=== PATIENT | male | born 1950 | race Caucasian/White ===

== ENCOUNTER → 2016-11-12 | Outpatient (CLI) | payer OTHER ==
--- NOTE | 2016-11-12 08:02 | US ---
EXAMINATION TYPE: US duplex aorta DATE OF EXAM: 11/12/2016 COMPARISON: NONE CLINICAL HISTORY: Z13.6 AAA. EXAM MEASUREMENTS: Abdominal Aorta: Proximal: 2.3cm Mid: 1.6cm Distal: 1.6cm Bifurcation: Right 0.8cm left 1.0cm No AAA. Extensive overlying bowel gas. IMPRESSION: NO EVIDENCE OF AN AORTIC ANEURYSM AT THIS TIME.
== END | disposition home or self-care (01) ==
LOC: RADUSWWP 07:09
PROVIDERS: ATTEND Family Medicine
DX: Z13.6 Encounter for screening for cardiovascular disorders (principal)
CPT/HCPCS: 93979

== ENCOUNTER → 2016-11-24 | Outpatient (CLI) | payer OTHER ==
--- NOTE | 2016-11-24 14:45 | MM ---
Reason for exam: clinical finding. Physical Findings: Nurse Summary: A 0.5cm nodule in the right breast at 11 o'clock (nurse kp). MG Diagnostic Mammo w CAD OPAL Bilateral CC and MLO view(s) were taken. The breast tissue is almost entirely fat. Asymmetric breast tissue, greater in the right breast. There is no discrete abnormality. Suspect gynecomastia. These results were verbally communicated with the patient and result sheet given to the patient on 11/24/16. ASSESSMENT: Benign, BI-RAD 2 RECOMMENDATION: Clinical management of both breasts. Manage patient on a clinical basis.
--- NOTE | 2016-11-24 14:50 | USB ---
Reason for exam: clinical finding. US Breast Limited RT Right breast ultrasound demonstrates no cystic or solid lesion seen. Left posterior nipple for comparison. These results were verbally communicated with the patient and result sheet given to the patient on 11/24/16. ASSESSMENT: Negative, BI-RAD 1 RECOMMENDATION: Clinical management of both breasts. Manage patient on a clinical basis, bilateral gynecomastia greater in the right breast.
== END | disposition home or self-care (01) ==
LOC: RADMAMWWP 10:07
PROVIDERS: ATTEND Family Medicine
DX: N63 Unspecified lump in breast (principal); R92.8 Other abnormal and inconclusive findings on diagnostic imaging of breast
CPT/HCPCS: 76642; G0204

== ENCOUNTER → 2019-04-20 | Outpatient (CLI) | payer OTHER ==
--- NOTE | 2019-04-20 09:44 | CTL ---
EXAMINATION TYPE: CT Low Dose Lung DATE OF EXAM ORDERED: 04/20/2019 HISTORY: 68-year-old male personal history of tobacco use. Lung cancer screening CT DLP: 58.[address] CTDI: 1.7 mGy Automated exposure control for dose reduction was used. SCREENING VISIT: Baseline COMPARISON: None TECHNIQUE: Low dose computed tomography scan was performed through the chest at 1 mm thick sections a nd reconstructed images in the coronal and sagittal plane. Additional coronal MIP reconstruction perf ormed. CT DIAGNOSTIC QUALITY: Satisfactory FINDINGS: Heart normal size without pericardial effusion. Scattered coronary vessel calcifications are present. Aorta normal caliber with mild atherosclerotic arch calcifications and conventional arch vessel branc bandar anatomy. No thoracic lymphadenopathy by CT size criteria. Trace bilateral gynecomastia. Mild biapical pleural-parenchymal scarring. Mild centrilobular emphysema. Some scattered subpleural r eticulation suggests some underlying fibrosis as well. Mild diffuse bronchial wall thickening. Some strandy mucus/debris within the distal left mainstem bronchus. Tiny 3 mm pulmonary nodule peripheral left midlung, axial image 83. No suspicious pulmonary nodule or mass. Tiny hiatal hernia. Visualized upper abdomen otherwise shows no gross abnormality. Bones: Degenerative changes of the right shoulder with an anterior 8 mm loose body. Degenerative disc disease and endplate spondylosis throughout the thoracic spine. IMPRESSION: 1. LungRADS 2 - Benign. Solitary 3 mm left upper lobe pulmonary nodule on baseline. 2. COPD with mild emphysema. 3. Tiny hiatal hernia. RECOMMENDATION: 1. Continue annual low-dose lung cancer screening CT. 2. Smoking cessation. FOLLOW UP CT CHEST RECOMMENDATION: [address] LUNG RAD: Lung-Rad 2 Benign Appearance or Behavior
== END | disposition home or self-care (01) ==
LOC: RADCTMAIN 08:12
DX: Z12.2 Encounter for screening for malignant neoplasm of respiratory organs (principal); R91.1 Solitary pulmonary nodule; J43.9 Emphysema, unspecified; F17.210 Nicotine dependence, cigarettes, uncomplicated

== ENCOUNTER → 2020-05-07 | Outpatient (CLI) | payer OTHER ==
--- NOTE | 2020-05-07 09:14 | US ---
EXAMINATION TYPE: US liver DATE OF EXAM: 05/07/2020 COMPARISON: NONE CLINICAL HISTORY: K76.9 Liver disease unspecified. Abnormal labs EXAM MEASUREMENTS: Liver Length: 11.2 cm Gallbladder Wall: 0.2 cm CBD: 0.4 cm Right Kidney: 8.7 x 4.8 x 4.2 cm Pancreas: wnl, tail obscured by overlying bowel gas Liver: Cyst adjacent to GB medial right lobe= 0.9 x 0.8 x 1.0 cm, otherwise appeared wnl Gallbladder: wnl Evidence for sonographic Atkins's sign: No CBD: wnl Right Kidney: Cortical thinning, small in size IMPRESSION: 1. Simple hepatic cyst. 2. Right-sided renal cortical thinning.
== END | disposition home or self-care (01) ==
LOC: RADUSWWP 08:49
DX: K76.89 Other specified diseases of liver (principal); N28.89 Other specified disorders of kidney and ureter
CPT/HCPCS: 76705

== ENCOUNTER → 2020-06-19 | Outpatient (CLI) | payer OTHER ==
--- NOTE | 2020-06-19 16:40 | US ---
EXAMINATION TYPE: US kidneys/renal and bladder DATE OF EXAM: 06/19/2020 COMPARISON: Recent liver US CLINICAL HISTORY: R93.421 abnormal radiologic findings on diagnostic. Abnormal appearing right kidney on previous US EXAM MEASUREMENTS: Right Kidney: 8.8 x 4.9 x 5.0 cm Left Kidney: 9.5 x 5.4 x 4.5 cm Right Kidney: Cortical thinning, small in size as visualized on previous Left Kidney: No evidence of hydro, appeared wnl Bladder: Abnormal posterior wall, ?bladder diverticula. This is not well visualized by imaging. Bilateral Jets seen: No IMPRESSION: 1. Normal bilateral renal ultrasound. 2. Real-time technologist observation suggest a possible bladder diverticula an abnormal urinary blad fercho wall. Real-time observation by radiologist or repeat study with attention to the urinary bladder could be performed.
== END | disposition home or self-care (01) ==
LOC: RADUSWWP 16:05
DX: R93.421 Abnormal radiologic findings on diagnostic imaging of right kidney (principal)
CPT/HCPCS: 76770

== ENCOUNTER → 2020-10-10 | Outpatient (CLI) | payer OTHER ==
--- NOTE | 2020-10-10 12:53 | CTL ---
EXAMINATION TYPE: CT Low Dose Lung DATE OF EXAM ORDERED: 10/10/2020 COMPARISON: HISTORY: . Low Dose CT Lung Screening CT DLP: 85.[address] CTDI: 2.4 mGy IV CONTRAST USED: None. SCREENING VISIT: First visit COMPARISON: None. TECHNIQUE: Low dose computed tomography scan was performed through the chest at 1 millimeter thick se ctions and reconstructed images in the coronal plane at [address] DIAGNOSTIC QUALITY: Satisfactory FINDINGS: LUNG NODULES: Tiny 2 mm pulmonary nodule right upper lobe posteriorly. Stable 3 mm pulmonary nodule l eft upper lobe image 81 LUNGS: COPD: Severity: Moderate Fibrosis: Severity:None Lymph nodes: None Other findings: None RIGHT PLEURAL SPACE: Effusion: None Calcification: None Thickening: None Pneumothorax: None LEFT PLEURAL SPACE: Effusion: None Calcification: None Thickening: None Pneumothorax: None HEART: Heart Size: Mildly enlarged Coronary calcification: Mild Pericardial effusion: None OTHER FINDINGS: Upper abdomen: No significant abnormality Bony thorax: Degenerative changes Supraclavicular region: No significant abnormalityOther: No significant abnormalityI IMPRESSION: Benign FOLLOW UP CT CHEST RECOMMENDATION: Follow-up screening in one year. Smoking cessation advised. CT LUNG RAD: LUNG RAD CATEGORY category 2
== END | disposition home or self-care (01) ==
LOC: RADCTMAIN 12:20
DX: Z12.2 Encounter for screening for malignant neoplasm of respiratory organs (principal)
CPT/HCPCS: 71271

== ENCOUNTER 2021-01-18 15:34 | Inpatient (IN) | payer OTHER ==
[2021-01-18] MEDS ORDERED: MORPHINE SULFATE 4 MG/ML SYRINGE IVP PRN (15:49)
--- NOTE | 2021-01-18 15:51 | ED ---
General Adult HPI - General Chief complaint: Fall Stated complaint: weakness Time Seen by Provider: 01/18/21 15:36 Source: EMS Mode of arrival: EMS Limitations: physical limitation - History of Present Illness Initial comments: Dictation was produced using [employer] dictation software. please excuse any grammatical, word or spelling errors. Chief Complaint: 70-year-old male presents to the emergency Department with back and left hip pain History of Present Illness: And is a 70-year-old male has history of left hip prosthesis. Surgery was done 10 years ago. Patient fell down yesterday. He states he turned quickly and loss control and his left leg. He states his left hip is given on the past. States he fell down. Today he was having difficulty walking. EMS was called by patient's is brought to the ER. Patient states that he did not experience any palpitations or pain prior to the fall. Did not strike his head or hurt his neck. Patient has no complaints other than his lower back and left hip. Patient states his back pain goes across his left lower back. Denies any numbness and paresthesias to the extremities. The ROS documented in this emergency department record has been reviewed and confirmed by me. Those systems with pertinent positive or negative responses have been documented in the HPI. All other systems are other negative and/or noncontributory. PHYSICAL EXAM: General Impression: Alert and oriented x3, not in acute distress HEENT: Normocephalic atraumatic, extra-ocular movements intact, pupils equal and reactive to light bilaterally, mucous membranes moist. Cardiovascular: Heart regular rate and rhythm Chest: Able to complete full sentences, no retractions, no tachypnea Abdomen: abdomen soft, non-tender, non-distended, no organomegaly Musculoskeletal: Pulses present and equal in all extremities, no peripheral edema Left lower extremity shortened compared to the right, mild tenderness to palpation over the left greater trochanter Motor: no focal deficits noted Neurological: CN II-XII grossly intact, no focal motor or sensory deficits noted Skin: Intact with no visualized rashes Psych: Normal affect and mood ED course: 70-year-old male presents to the emergency department with lower back pain and left hip pain after fall yesterday. Vital Signs upon arrival are within acceptable limits. Laboratory evaluation obtained. CBC, coag panel, metabolic panel is unremarkable. Computed tomography scan of the brain shows no acute processes. CT of the lumbar spine shows no acute fractures. Patient is reevaluated bedside continue have significant pain EKG interpretation: Ventricular rate 106, sinus tachycardia, ME interval 136, QRS 82, QTc 459. No ME prolongation, no QTC prolongation, no ST or T-wave changes noted. No EKG for comparison Overall, this EKG is unremarkable Computed tomography scan of the hip and left lower extremity shows hairline intra-articular fracture of the left acetabulum. Case is discussed with Nupur for orthopedic surgery. She discussed the case with Dr. Lyons. They are agreeable that patient is able to stay in the hospital per patient be admitted to Dr. Ortiz of [facility] with orthopedic surgery on consult. - Related Data Home Medications Medication Instructions Recorded Confirmed Folic Acid 1 mg PO DAILY 01/18/21 01/18/21 Pyridoxine HCl (Vitamin B6) 25 mg PO DAILY 01/18/21 01/18/21 [Pyridoxine HCl] Thiamine HCl [Vitamin B-1] 100 mg PO DAILY 01/18/21 01/18/21 Allergies Allergy/AdvReac Type Severity Reaction Status Date / Time No Known Allergies Allergy Verified 01/18/21 16:25 Review of Systems ROS Statement: Those systems with pertinent positive or pertinent negative responses have been documented in the HPI. ROS Other: All systems not noted in ROS Statement are negative. Past Medical History Past Medical History: No Reported History History of Any Multi-Drug Resistant Organisms: None Reported Past Surgical History: Orthopedic Surgery Additional Past Surgical History / Comment(s): Left hip surgery, left testicle. Past Psychological History: No Psychological Hx Reported Smoking Status: Current every day smoker Past Alcohol Use History: Daily Past Drug Use History: None Reported General Exam Limitations: physical limitation Course Vital Signs 01/18/21 01/18/21 15:37 16:54 Temperature 97.8 F Pulse Rate 109 H 85 Respiratory 18 18 Rate Blood Pressure 166/85 166/85 O2 Sat by Pulse 93 L 94 L Oximetry Medical Decision Making - Lab Data Result diagrams: 01/18/21 15:52 01/18/21 15:52 Lab Results 01/18/21 01/18/21 01/18/21 Range/Units 15:52 15:52 15:52 WBC 8.2 (3.8-10.6) k/uL RBC 4.18 L (4.30-5.90) m/uL Hgb 13.7 (13.0-17.5) gm/dL Hct 41.2 (39.0-53.0) % MCV 98.7 (80.0-100.0) fL MCH 32.7 (25.0-35.0) pg MCHC 33.1 (31.0-37.0) g/dL RDW 13.3 (11.5-15.5) % Plt Count 136 L (150-450) k/uL MPV 10.1 Neutrophils % 80 % Lymphocytes % 9 % Monocytes % 7 % Eosinophils % 3 % Basophils % 1 % Neutrophils # 6.5 (1.3-7.7) k/uL Lymphocytes # 0.7 L (1.0-4.8) k/uL Monocytes # 0.6 (0-1.0) k/uL Eosinophils # 0.2 (0-0.7) k/uL Basophils # 0.0 (0-0.2) k/uL PT 10.4 (9.0-12.0) sec INR 1.0 (<1.2) APTT 23.7 (22.0-30.0) sec Sodium 135 L (137-145) mmol/L Potassium 4.5 (3.5-5.1) mmol/L Chloride 105 (98-107) mmol/L Carbon Dioxide 21 L (22-30) mmol/L Anion Gap 9 mmol/L BUN 16 (9-20) mg/dL Creatinine 0.76 (0.66-1.25) mg/dL Est GFR (CKD-EPI)AfAm >90 (>60 ml/min/1.73 sqM) Est GFR (CKD-EPI)NonAf >90 (>60 ml/min/1.73 sqM) Glucose 111 H (74-99) mg/dL Calcium 9.0 (8.4-10.2) mg/dL Magnesium 2.1 (1.6-2.3) mg/dL Disposition Clinical Impression: Fall Disposition: ADMITTED IP TO THIS HOSP Condition: Fair Referrals: [facility],Clinic [Primary Care Provider] - 1-2 days
[2021-01-18 16:03] LABS: Basophils % (A) 1 %; Eosinophils # (A) 0.2 k/uL (0-0.7); Eosinophils % (A) 3 %; HCT 41.2 % (39.0-53.0); HGB 13.7 gm/dL (13.0-17.5); Lymphocytes # (A) 0.7 k/uL (1.0-4.8); Lymphocytes % (A) 9 %; MCH 32.7 pg (25.0-35.0); MCHC 33.1 g/dL (31.0-37.0); MCV 98.7 fL (80.0-100.0); Mean Platelet Volume 10.1; Monocytes # (A) 0.6 k/uL (0-1.0); Monocytes % (A) 7 %; Neutrophils # (A) 6.5 k/uL (1.3-7.7); Neutrophils % (A) 80 %; Platelet Count 136 k/uL (150-450); RBC 4.18 m/uL (4.30-5.90); RDW 13.3 % (11.5-15.5); WBC 8.2 k/uL (3.8-10.6)
[2021-01-18] MEDS ORDERED: SODIUM CHLORIDE 0.9% 1,000 ML IV STA (16:03)
[2021-01-18 16:12] LABS: African American GFR (CKD) >90 (>60 ml/min/1.73 sqM); Anion Gap 9 mmol/L; Blood Urea Nitrogen 16 mg/dL (9-20); Carbon Dioxide 21 mmol/L (22-30); Chloride 105 mmol/L (98-107); Glucose 111 mg/dL (74-99); Magnesium 2.1 mg/dL (1.6-2.3); Non-African American GFR(CKD) >90 (>60 ml/min/1.73 sqM); Sodium 135 mmol/L (137-145)
[2021-01-18 16:19] LABS: Potassium 4.5 mmol/L (3.5-5.1)
--- NOTE | 2021-01-18 16:20 | CT ---
EXAMINATION TYPE: CT brain wo con DATE OF EXAM: 01/18/2021 COMPARISON: None HISTORY: Fall with weakness. Patient denies head injury. CT DLP: 1173.4 mGycm Automated exposure control for dose reduction was used. there is cerebral cortical atrophy. There is enlargement of the ventricles. There is no mass effect n or midline shift. There is no sign of intracranial hemorrhage. The calvarium is intact. IMPRESSION: Hydrocephalus. Cerebral atrophy. No acute intracranial abnormality.
--- NOTE | 2021-01-18 16:23 | CT ---
EXAMINATION TYPE: CT lumbar spine wo con DATE OF EXAM: 01/18/2021 COMPARISON: None HISTORY: Low back and left hip pain post fall CT DLP: 707.8 mGycm Automated exposure control for dose reduction was used. The lumbar vertebra have normal alignment. Disc spaces are fairly normal. Abdominal aorta is atheroma tous. Posterior elements are intact. There is no compression fracture. There is no lumbar paraspinal mass. Sacroiliac joints are intact. There is 13 mm area of osteosclerosis in the superior left side o f the L3 vertebral body. This is probably a bone island. IMPRESSION: Mild degenerative spurring. No fracture.
[2021-01-18 16:24] LABS: Partial Thromboplastin Time 23.7 sec (22.0-30.0); Prothrombin Time 10.4 sec (9.0-12.0)
--- NOTE | 2021-01-18 16:58 | XR ---
EXAMINATION TYPE: XR Hip LT and AP Pelvis DATE OF EXAM: 01/18/2021 COMPARISON: NONE HISTORY: Left hip pain TECHNIQUE: 3 views FINDINGS: Pelvic ring is intact. There is a left hip prosthesis. Components appear in anatomic positi on. Sacroiliac joints are intact. There is vascular calcification. IMPRESSION: No acute abnormality of the pelvis and left hip.
[2021-01-18] MEDS ORDERED: HYDROmorphone 1 MG/ML 1 ML SYRINGE IVP STA (17:37)
[2021-01-18] MEDS ORDERED: NALOXONE 0.4 MG/ML 1 ML VIAL IV PRN (18:38)
[2021-01-18] MEDS ORDERED: ACETAMINOPHEN TAB 325 MG TAB PO PRN (18:38)
[2021-01-18] MEDS ORDERED: MORPHINE SULFATE 4 MG/ML SYRINGE IV PRN (18:38)
--- NOTE | 2021-01-18 18:50 | CT ---
EXAMINATION TYPE: CT lower extremity LT wo con DATE OF EXAM: 01/18/2021 COMPARISON: None HISTORY: Pain left hip to knee. CT DLP: 965.7 mGycm Automated exposure control for dose reduction was used. Images were obtained from the mid ileum to the proximal tibia without contrast. Sacroiliac joints appear intact. There is a left hip prosthesis. There is a lucent line projected thr ough the medial aspect of the left acetabulum consistent with a nondisplaced hairline fracture. This extends to the articular surface of the prosthetic femoral head. The ischium appears intact. The femoral shaft is intact. The knee joint is intact. There is no sign of knee joint effusion. Knee joint spaces are fairly normal. There is no evidence of a soft tissue mass. IMPRESSION: There is hairline intra-articular fracture of the left acetabulum. No femoral fracture.
[2021-01-18] MEDS: SODIUM CHLORIDE 0.9% 1,000 ML IV SCH (21:04)
[2021-01-18] MEDS: HYDROcodone/APAP 5-325MG 1 EACH TAB PO PRN (21:04)
[2021-01-19] MEDS: HYDROcodone/APAP 5-325MG 1 EACH TAB PO PRN ×3 (07:46→17:10)
[2021-01-19] MEDS ORDERED: KETOROLAC 15 MG/ML 1 ML VIAL IVP PRN (10:10)
[2021-01-19 10:50] LABS: Basophils % (A) 0 %; Eosinophils # (A) 0.2 k/uL (0-0.7); Eosinophils % (A) 3 %; HCT 38.8 % (39.0-53.0); HGB 13.2 gm/dL (13.0-17.5); Lymphocytes # (A) 0.8 k/uL (1.0-4.8); Lymphocytes % (A) 11 %; MCH 33.7 pg (25.0-35.0); MCHC 33.9 g/dL (31.0-37.0); MCV 99.4 fL (80.0-100.0); Monocytes # (A) 0.6 k/uL (0-1.0); Monocytes % (A) 9 %; Neutrophils # (A) 5.7 k/uL (1.3-7.7); Neutrophils % (A) 76 %; Platelet Count 139 k/uL (150-450); RBC 3.91 m/uL (4.30-5.90); RDW 12.7 % (11.5-15.5); WBC 7.5 k/uL (3.8-10.6)
--- NOTE | 2021-01-19 12:56 | P.HPIM ---
History of Present Illness Patient of and 70-year-old male came in after a fall which is as a result of dizziness without any syncopal episode about a 2 days ago. Patient is found to have left hip fracture, CT of the left hip showed hairline intra-articular f racture of the left acetabulum. Patient was complaining of severe left hip pain which has been getting worse as of which ended up coming to the hospital after 3 days. Patient does admit to drinking about 6 beers a day. Patient says he was not drunk when he fell, patient denied any fever chills patient is bit tachycardic because of which obtained a TSH which was within normal limits patient had a d-dimer that is elevated because of which I'm obtaining a CT angios the chest rule out any pulmonary embolism considering that patient had hip fracture not much ablated for last 3 days most probably. Patient does admit to smoking 2 packs of cigarettes per day. REVIEW OF SYSTEMS: CONSTITUTIONAL: No fever, no malaise, no fatigue. HEENT: No recent visual problems or hearing problems. Denied any sore throat. CARDIOVASCULAR: No chest pain, orthopnea, PND, no palpitations, no syncope. PULMONARY: No shortness of breath, no cough, no hemoptysis. GASTROINTESTINAL: No diarrhea, no nausea, no vomiting, no abdominal pain. NEUROLOGICAL: No headaches, no weakness, no numbness. HEMATOLOGICAL: Denies any bleeding or petechiae. GENITOURINARY: Denies any burning micturition, frequency, or urgency. MUSCULOSKELETAL/RHEUMATOLOGICAL: As mentioned in HPI ENDOCRINE: Denies any polyuria or polydipsia. The rest of the 14-point review of systems is negative. PHYSICAL EXAMINATION: GENERAL: The patient is alert and oriented x3, not in any acute distress. Well developed, well nourished. HEENT: Pupils are round and equally reacting to light. EOMI. No scleral icterus. No conjunctival pallor. Normocephalic, atraumatic. No pharyngeal erythema. No thyromegaly. CARDIOVASCULAR: S1 and S2 present. No murmurs, rubs, or gallops. PULMONARY: Chest is clear to auscultation, no wheezing or crackles. ABDOMEN: Soft, nontender, nondistended, normoactive bowel sounds. No palpable organomegaly. MUSCULOSKELETAL: Deferred to orthopedic surgery EXTREMITIES: No cyanosis, clubbing, or pedal edema. NEUROLOGICAL: Gross neurological examination did not reveal any focal deficits. SKIN: No rashes. Assessment and plan -Fall and left hip fracture patient didn't have any syncope but did did have li ghtheadedness probably was bit dehydrated. Patient has established fracture., Orthopedic surgery will the evaluate the patient continue with the pain medications until then. -Alcohol abuse: Counseling was provided patient will be monitored for alcohol withdrawals next and-sinus tachycardia with elevated d-dimer obtain a CT angio of the chest rule out pulmonary embolism. -Nicotine abuse: Counseling was provided GI prophylaxis: Pepcid DVT prophylaxis: Lovenox Past Medical History Past Medical History: No Reported History History of Any Multi-Drug Resistant Organisms: None Reported Past Surgical History: Orthopedic Surgery Additional Past Surgical History / Comment(s): Left hip surgery, left testicle. Past Anesthesia/Blood Transfusion Reactions: No Reported Reaction Past Psychological History: No Psychological Hx Reported Smoking Status: Current every day smoker Past Alcohol Use History: Daily Past Drug Use History: None Reported Medications and Allergies Home Medications Medication Instructions Recorded Confirmed Type Folic Acid 1 mg PO DAILY 01/18/21 01/18/21 History Pyridoxine HCl (Vitamin B6) 25 mg PO DAILY 01/18/21 01/18/21 History [Pyridoxine HCl] Thiamine HCl [Vitamin B-1] 100 mg PO DAILY 01/18/21 01/18/21 History Allergies Allergy/AdvReac Type Severity Reaction Status Date / Time No Known Allergies Allergy Verified 01/18/21 16:25 Physical Exam Vitals: Vital Signs Temp Pulse Pulse Resp BP BP Pulse Ox 01/19/21 12:32 98.2 F 92 16 147/73 92 L 01/19/21 04:44 98.3 F 78 16 132/72 97 01/18/21 21:00 111 H 18 01/18/21 20:34 98.3 F 98 18 165/91 99 01/18/21 20:04 111 H 18 163/93 98 01/18/21 16:54 85 18 166/85 94 L 01/18/21 15:37 97.8 F 109 H 18 166/85 93 L Intake and Output 01/18/21 01/19/21 01/19/21 22:59 06:59 14:59 Output Total 200 Balance -200 Output: Urine 200 Other: Voiding Method Urinal # Voids 1 3 Weight 68.039 kg Results CBC & Chem 7: 01/19/21 10:24 01/18/21 15:52 Labs: Abnormal Lab Results - Last 24 Hours (Table) 01/18/21 01/18/21 01/19/21 Range/Units 15:52 15:52 10:24 RBC 4.18 L 3.91 L (4.30-5.90) m/uL Hct 38.8 L (39.0-53.0) % Plt Count 136 L 139 L (150-450) k/uL Lymphocytes # 0.7 L 0.8 L (1.0-4.8) k/uL D-Dimer (<0.60) mg/L FEU Sodium 135 L (137-145) mmol/L Carbon Dioxide 21 L (22-30) mmol/L Glucose 111 H (74-99) mg/dL 01/19/21 Range/Units 10:24 RBC (4.30-5.90) m/uL Hct (39.0-53.0) % Plt Count (150-450) k/uL Lymphocytes # (1.0-4.8) k/uL D-Dimer 1.67 H (<0.60) mg/L FEU Sodium (137-145) mmol/L Carbon Dioxide (22-30) mmol/L Glucose (74-99) mg/dL Thrombosis Risk Factor Assmnt - Choose All That Apply Any of the Below Risk Factors Present?: Yes Other Risk Factors: Yes Each Risk Factor Represents 2 Points: Age 61-74 years Other congenital or acquired thrombophilia - If yes, enter type in comment: Yes Each Risk Factor Represents 5 Points: Hip, pelvis, or leg fracture (< 1 month) Thrombosis Risk Factor Assessment Total Risk Factor Score: 7 Thrombosis Risk Factor Assessment Level: High Risk
[2021-01-19] MEDS: FAMOTIDINE 20 MG TAB PO SCH ×2 (13:48→20:21)
--- NOTE | 2021-01-19 14:47 | P.CNOR ---
History of Present Illness - HPI Consult date: 01/19/21 History of present illness: This is a 70-year-old male who is admitted for fracture of the left acetabulum. Patient states that he fell at home on 01/16/2021. Patient states that he was able to bear weight on the left lower extremity initially, but states that now he can't put any weight on the left leg. Patient admits to alcohol use and is a current smoker. Patient states that he does live alone. Patient has a history of left hip fracture which was treated with left hip hemiarthroplasty. Patient denies any significant past medical history. Patient denies any fever/chills, numbness, weakness, tingling, abdominal pain, shortness of breath or chest pain. Review of Systems See HPI. Past Medical History Past Medical History: No Reported History History of Any Multi-Drug Resistant Organisms: None Reported Past Surgical History: Orthopedic Surgery Additional Past Surgical History / Comment(s): Left hip surgery, left testicle. Past Anesthesia/Blood Transfusion Reactions: No Reported Reaction Past Psychological History: No Psychological Hx Reported Smoking Status: Current every day smoker Past Alcohol Use History: Daily Past Drug Use History: None Reported Medications and Allergies Home Medications Medication Instructions Recorded Confirmed Type Folic Acid 1 mg PO DAILY 01/18/21 01/18/21 History Pyridoxine HCl (Vitamin B6) 25 mg PO DAILY 01/18/21 01/18/21 History [Pyridoxine HCl] Thiamine HCl [Vitamin B-1] 100 mg PO DAILY 01/18/21 01/18/21 History Allergies Allergy/AdvReac Type Severity Reaction Status Date / Time No Known Allergies Allergy Verified 01/18/21 16:25 Physical Examination Vital signs are stable. Patient is in no acute distress and is alert and oriented 3. Patient does have pain with passive range of motion of the left hip. Patient has difficulty with active range of motion of the left hip due to pain. Calf is soft and nontender to palpation. The left lower extremity is warm and well perfused. Patient has full foot and ankle motion without pain or difficulty. Sensation intact. Neurovascular status and circulatory status are intact. Results A CT of the left lower extremity reveals a hairline intra-articular fracture of the left acetabulum. No femoral fracture. X-rays of the left hip and pelvis reveal a left hip hemiarthroplasty in good position and alignment. - Labs Labs: Abnormal Lab Results - Last 24 Hours (Table) 01/18/21 01/18/21 01/19/21 Range/Units 15:52 15:52 10:24 RBC 4.18 L 3.91 L (4.30-5.90) m/uL Hct 38.8 L (39.0-53.0) % Plt Count 136 L 139 L (150-450) k/uL Lymphocytes # 0.7 L 0.8 L (1.0-4.8) k/uL D-Dimer (<0.60) mg/L FEU Sodium 135 L (137-145) mmol/L Carbon Dioxide 21 L (22-30) mmol/L Glucose 111 H (74-99) mg/dL 01/19/21 Range/Units 10:24 RBC (4.30-5.90) m/uL Hct (39.0-53.0) % Plt Count (150-450) k/uL Lymphocytes # (1.0-4.8) k/uL D-Dimer 1.67 H (<0.60) mg/L FEU Sodium (137-145) mmol/L Carbon Dioxide (22-30) mmol/L Glucose (74-99) mg/dL H & H 01/18/21 01/19/21 Range/Units 15:52 10:24 Hgb 13.7 13.2 (13.0-17.5) gm/dL Hct 41.2 38.8 L (39.0-53.0) % Coagulation 01/18/21 Range/Units 15:52 INR 1.0 (<1.2) Result Diagrams: 01/19/21 10:24 01/18/21 15:52 Assessment and Plan (1) Fall Current Visit: Yes Status: Acute Code(s): W19.XXXA - UNSPECIFIED FALL, INITIAL ENCOUNTER SNOMED Code(s): 1938902 (2) Left acetabular fracture Current Visit: Yes Status: Acute Code(s): S32.402A - UNSP FRACTURE OF LEFT ACETABULUM, INIT FOR CLOS FX SNOMED Code(s): 47534135 Plan: 1. Patient is to be nonweightbearing to left lower extremity with a walker. 2. Continue pain control. 3. Physical therapy for mobilization. 4. No surgical intervention planned. Will continue to follow.
--- NOTE | 2021-01-19 16:00 | CT ---
EXAMINATION TYPE: CT chest angio for PE DATE OF EXAM: 01/19/2021 COMPARISON: None HISTORY: 70-year-old male, shortness of breath, Elevated d-dimer. TECHNIQUE: Contiguous axial scanning of the chest performed with IV Contrast, patient injected with 1 00 mL of Isovue 370. Coronal/sagittal MIP reconstructions performed. CT DLP: 240.1 mGycm Automated exposure control for dose reduction was used. FINDINGS: Heart normal size without pericardial effusion. Aorta normal caliber with mild atherosclerotic arch calcifications and conventional arch vessel branc bandar anatomy. No mediastinal or axillary lymphadenopathy. There is 1.6 cm right hilar soft tissue nodule. Some elisabeth tional right infrahilar soft tissue measuring 1.1 cm. Satisfactory opacification of the pulmonary arterial system without evidence for pulmonary embolus. Moderate diffuse bronchial wall thickening. Dependent atelectasis at the posterior lung bases, partic ularly on the left. Mild to moderate upper lung centrilobular emphysema. No consolidation or pleural effusion. Visualized upper abdomen shows no gross abnormality. Bones: Moderate to severe degenerative change right glenohumeral with a 7 mm loose body in the subco racoid space. Moderate degenerative disc disease mid thoracic spine. Some mild anterior bridging endp late spondylosis lower thoracic spine. Old healed right-sided rib fractures or foreign bodies. IMPRESSION: 1. NO EVIDENCE FOR PULMONARY EMBOLUS. 2. COPD WITH MILD TO MODERATE EMPHYSEMA. 3. MODERATE BRONCHIAL WALL THICKENING; CORRELATE FOR BRONCHITIS. SOME PROMINENT RIGHT HILAR AND RIGHT INFRAHILAR LYMPH NODES MEASURING UP TO 1.6 CM, PROBABLY REACTIVE. RECOMMEND THREE-MONTH FOLLOW-UP CO NTRAST ENHANCED CT TO ENSURE STABILITY/RESOLUTION. 4. SOME PATCHY DEPENDENT ATELECTASIS INCIDENTALLY NOTED.
[2021-01-19] MEDS: SODIUM CHLORIDE 0.9% 1,000 ML IV SCH (20:22)
[2021-01-20 05:52] LABS: HCT 37.2 % (39.0-53.0); HGB 12.9 gm/dL (13.0-17.5); MCH 33.9 pg (25.0-35.0); MCHC 34.8 g/dL (31.0-37.0); MCV 97.5 fL (80.0-100.0); Mean Platelet Volume 9.8; Platelet Count 137 k/uL (150-450); RBC 3.81 m/uL (4.30-5.90); RDW 13.2 % (11.5-15.5); WBC 6.3 k/uL (3.8-10.6)
[2021-01-20] MEDS: HYDROcodone/APAP 5-325MG 1 EACH TAB PO PRN (08:17)
[2021-01-20] MEDS: FAMOTIDINE 20 MG TAB PO SCH (08:17)
[2021-01-20] MEDS ORDERED: ENOXAPARIN 40 MG/0.4 ML SYRINGE SQ SCH (09:00)
[2021-01-20 12:09] VITALS: BP 138/88; PULSE 94; RESP 18; TEMP 98.2
--- NOTE | 2021-01-20 13:45 | P.PN ---
Subjective Progress Note Date: 01/20/21 This is a 70-year-old male who is admitted for fracture of the left acetabulum. Patient is seen and evaluated at bedside today. Patient states that his pain is starting to improve and he has been able to sit up in a chair today. Patient denies any new complaints today. Patient denies any fever/chills, numbness, weakness, tingling, abdominal pain, shortness of breath or chest pain. Objective - Vital Signs Vital signs: Vital Signs Temp 98.2 F 01/20/21 11:26 Pulse 94 01/20/21 11:26 Resp 18 01/20/21 11:26 BP 138/88 01/20/21 11:26 Pulse Ox 99 01/20/21 11:26 Intake & Output 01/19/21 01/20/21 01/20/21 18:59 06:59 18:59 Output Total 200 500 Balance -200 -500 Output: Urine 200 500 Other: Voiding Method Urinal Urinal # Voids 3 - Exam On exam patient is sitting comfortably in a chair in no acute distress. Patient is alert and oriented 3. Calf is soft and nontender to palpation. Sensation intact. Neurovascular status and circulatory status are intact. - Labs CBC & Chem 7: 01/20/21 05:07 01/18/21 15:52 Labs: Abnormal Lab Results - Last 24 Hours (Table) 01/20/21 Range/Units 05:07 RBC 3.81 L (4.30-5.90) m/uL Hgb 12.9 L (13.0-17.5) gm/dL Hct 37.2 L (39.0-53.0) % Plt Count 137 L (150-450) k/uL Assessment and Plan (1) Fall Current Visit: Yes Status: Acute Code(s): W19.XXXA - UNSPECIFIED FALL, INITIAL ENCOUNTER SNOMED Code(s): 1091823 (2) Left acetabular fracture Current Visit: Yes Status: Acute Code(s): S32.402A - UNSP FRACTURE OF LEFT ACETABULUM, INIT FOR CLOS FX SNOMED Code(s): 06832128 Plan: 1. Patient is to be nonweightbearing to left lower extremity with a walker. 2. Continue pain control. 3. Physical therapy for mobilization. 4. Patient is to follow-up with [facility] as an outpatient in 2 weeks.
--- NOTE | 2021-01-20 16:31 | P.DS ---
Providers Date of admission: 01/18/21 18:38 Attending physician: Alec Rodrigues MD Consults: 01/18/21 19:12 Consult Physician Routine Consulting Provider: Wiley Lyons Consult Reason/Comments: hip fracture Do you want consulting provider notified?: Already Contacted Primary care physician: [facility] Hospital Course: Final diagnoses -Fall and left hip fracture patient didn't have any syncope but did did have lightheadedness probably was bit dehydrated. Patient has established fracture., Orthopedic surgery will the evaluate the patient continue with the pain medications until then. -Alcohol abuse: Counseling was provided patient will be monitored for alcohol withdrawals next and-sinus tachycardia with elevated d-dimer obtain a CT angio of the chest rule out pulmonary embolism. -Nicotine abuse: Counseling was provided GI prophylaxis: Pepcid DVT prophylaxis: Lovenox Discharge disposition Patient was recommended for subacute rehab, or home with home care services. Patient has been given a wheelchair to rest for home use for the next 3 months. Patient will be scheduled for home care services. Patient is discharged home nonweightbearing on the left side. Patient states that he has assistance at home that can help him with his ADLs. Patient's denies the need for rehab at this time. Patient is alert and oriented 3. Patient denies cough, chest pain, she was of breath. Patient will be given a prescription for pain management services. Patient will follow-up with orthopedic services in 10-14 days. Patient was counseled on importance of alcohol cessation. Hospital course Patient of and 70-year-old male came in after a fall which is as a result of dizziness without any syncopal episode about a 2 days ago. Patient is found to have left hip fracture, CT of the left hip showed hairline intra-articular fracture of the left acetabulum. Patient was complaining of severe left hip pain which has been getting worse as of which ended up coming to the hospital after 3 days. Patient does admit to drinking about 6 beers a day. Patient says he was not drunk when he fell, patient denied any fever chills patient is bit tachycardic because of which obtained a TSH which was within normal limits patient had a d-dimer that is elevated because of which I'm obtaining a CT angios the chest rule out any pulmonary embolism considering that patient had hip fracture not much ablated for last 3 days most probably. Patient does admit to smoking 2 packs of cigarettes per day. Patient's CT was negative for a PE. Patient was not recommended for any DVT prophylaxis pending discharge by orthopedic services. Patient was recommended for a follow-up in 10-14 days. Patient will follow up with PCP, he'll KIMBERLY. Patient is sent home with home healthcare services. Patient states that he has good support at home. 01/20/2021 Patient is evaluated sitting up in the chair today. Patient fell on tuesday which resulted in a hairline intra-articular fracture of the left acetabulum. Patient was evaluated by surgical services who recommended nonweightbearing on that left leg. Patient states that he has been ambulating with physical therapy. Patient denies any further needs besides a wheelchair for use at home. Patient will follow-up with orthopedic in the neck for 10-14 days. Patient is counseled on importance of alcohol cessation, smoking cessation. Family admission patient denies abdominal pain, chest pain, cough, shortness of breath. Patient denies any numbness intimately in the lower extremities, dorsalis pedis pulse +2 bilateral. Please see medication reconciliation for a list of current medications. Patient Condition at Discharge: Fair Plan - Discharge Summary Discharge Rx Participant: Yes New Discharge Prescriptions: New HYDROcodone/APAP 5-325MG [[place] 5-325] 1 each PO Q6HR PRN #10 tab PRN Reason: Severe Breakthrough Pain Famotidine [Pepcid] 20 mg PO BID #60 tablet Acetaminophen Tab [Tylenol] 650 mg PO Q6HR PRN tab PRN Reason: Mild Pain Or Fever > 100.5 traMADol HCl [Ultram] 50 mg PO TID #20 tab No Action Folic Acid 1 mg PO DAILY Thiamine HCl [Vitamin B-1] 100 mg PO DAILY Pyridoxine HCl (Vitamin B6) [Pyridoxine HCl] 25 mg PO DAILY Discharge Medication List Folic Acid 1 mg PO DAILY 01/18/21 [History] Pyridoxine HCl (Vitamin B6) [Pyridoxine HCl] 25 mg PO DAILY 01/18/21 [History] Thiamine HCl [Vitamin B-1] 100 mg PO DAILY 01/18/21 [History] Acetaminophen Tab [Tylenol] 650 mg PO Q6HR PRN tab 01/20/21 [Rx] Famotidine [Pepcid] 20 mg PO BID #60 tablet 01/20/21 [Rx] HYDROcodone/APAP 5-325MG [[place] 5-325] 1 each PO Q6HR PRN #10 tab 01/20/21 [Rx] traMADol HCl [Ultram] 50 mg PO TID #20 tab 01/20/21 [Rx] Follow up Appointment(s)/Referral(s): [facility],Equipment [NON-STAFF] - As Needed (Supplier of wheelchair) Wiley Lyons DO [Doctor of Osteopathic Medicine] - 2 Weeks [facility],Clinic [Primary Care Provider] - 1-2 days Activity/Diet/Wound Care/Special Instructions: [place] contact [facility] [place] will be referring a home care agency to follow up with you post discharge. For more information please contact the [facility]. Nonweightbearing to the left lower extremity. Please follow-up with [facility] and call with any questions or concerns, . Please schedule appointment with orthopedic surgery Discharge/Stand Alone Forms: Who Do I Call? Discharge Disposition: HOME WITH HOME HEALTH SERVICES
== END 2021-01-20 18:41 | disposition home health service (06) | DRG 536 ==
LOC: EC 15:34 → 5NMEDONC 18:38
PROVIDERS: ADMIT Internal Medicine; ATTEND Internal Medicine
DX: S32.402A Unspecified fracture of left acetabulum, initial encounter for closed fracture (principal); E86.0 Dehydration; J43.9 Emphysema, unspecified; F10.10 Alcohol abuse, uncomplicated; M54.5 Low back pain; F17.210 Nicotine dependence, cigarettes, uncomplicated; Z71.6 Tobacco abuse counseling; Z96.642 Presence of left artificial hip joint; Z71.41 Alcohol abuse counseling and surveillance of alcoholic; W19.XXXA Unspecified fall, initial encounter; Y92.009 Unspecified place in unspecified non-institutional (private) residence as the place of occurrence of the external cause
CPT/HCPCS: 36415; 70450; 71275; 72131; 73502; 80048; 83735; 84443; 85025; 85027; 85379; 85610; 85730; 93005; 96361; 96374; 96375; 99285

== ENCOUNTER → 2021-04-10 | Outpatient (CLI) | payer OTHER ==
[2021-04-10 14:06] LABS: African American GFR (CKD) >90 (>60 ml/min/1.73 sqM); Blood Urea Nitrogen 8 mg/dL (9-20); Non-African American GFR(CKD) 89 (>60 ml/min/1.73 sqM)
--- NOTE | 2021-04-12 17:36 | CT ---
EXAMINATION TYPE: CT chest w con DATE OF EXAM: 04/10/2021 COMPARISON: 01/19/2021 HISTORY: 70-year-old male R93.89 Abnormal Xray TECHNIQUE: Contiguous axial scanning of the chest after the administration of 100 mL of Isovue 300. Coronal/sagittal reconstructions performed. CT DLP: 203.5mGycm. Automatic exposure control utilized for a dose reduction. FINDINGS: Heart normal size without pericardial effusion. RCA coronary artery calcifications are present. Aorta normal caliber with minimal atherosclerotic arch calcifications. Conventional arch vessel branc bandar anatomy. Scattered small mediastinal lymph nodes. No thoracic lymphadenopathy by CT size criteria. The previou s right hilar and right infrahilar lymphadenopathy is smaller/resolved. Mild to moderate upper lung centrilobular emphysema. Strandy scarring or atelectasis in the lower rahul gs. Mild diffuse bronchial wall thickening. No consolidation or pleural effusion. Possible moderate atherosclerotic narrowing origin of the left renal artery and possible severe at th e origin of the right renal artery. Bones: Moderate multilevel degenerative disc disease and anterior endplate spondylosis. Focal scleros is involving the L3 superior endplate, present back on the 01/18/[address] Old healed left posterolateral rib fracture deformity. IMPRESSION: 1 COPD with mild to moderate emphysema. 2. The previous right hilar and right infrahilar lymphadenopathy has improved/resolved suggesting a b enign reactive/post inflammatory etiology. 3. Nonspecific focal sclerosis involving the L3 vertebral body. This may represent a large bone islan d. Correlate with PSA values and nuclear medicine whole body bone scan if any suspicion for osteoblas tic metastasis.
== END | disposition home or self-care (01) ==
LOC: RADCTMAIN 13:11
DX: M97.02XA Periprosthetic fracture around internal prosthetic left hip joint, initial encounter (principal); J43.9 Emphysema, unspecified
CPT/HCPCS: 82565; 84520; 71260; 36415; Q9967

== ENCOUNTER 2021-08-29 23:00 | Inpatient (IN) | payer OTHER, MEDICARE ==
[2021-08-29] MEDS ORDERED: SODIUM CHLORIDE 0.9% 1,000 ML IV ONE (23:06)
--- NOTE | 2021-08-29 23:07 | ED ---
Altered Mental Status HPI - General Stated Complaint: Altered Mental Status Time Seen by Provider: 08/29/21 23:06 Source: RN notes reviewed, old records reviewed Limitations: no limitations - History of Present Illness Initial Comments: This is a 71-year-old male to the ER for evaluation of altered mental status unable to provide history no family currently at the bedside. EMS provides history patient's found down in his apartment, house during a well check and brought to the ER for evaluation. Unresponsive MD Complaint: altered mental status, confusion, decreased responsiveness, weakness -: unknown Severity: severe Consistency of Symptoms: getting worse Context: alcohol abuse, drug abuse Associated Symptoms: denies other symptoms Treatments Prior to Arrival: IV fluid, oxygen - Related Data Home Medications Medication Instructions Recorded Confirmed Folic Acid 1 mg PO DAILY 01/18/21 01/18/21 Pyridoxine HCl (Vitamin B6) 25 mg PO DAILY 01/18/21 01/18/21 [Pyridoxine HCl] Thiamine HCl [Vitamin B-1] 100 mg PO DAILY 01/18/21 01/18/21 Previous Rx's Medication Instructions Recorded Acetaminophen Tab [Tylenol] 650 mg PO Q6HR PRN tab 01/20/21 Aspirin 81 mg PO BID #60 tab 01/20/21 Famotidine [Pepcid] 20 mg PO BID #60 tablet 01/20/21 traMADol HCl [Ultram] 50 mg PO TID #20 tab 01/20/21 Allergies Allergy/AdvReac Type Severity Reaction Status Date / Time No Known Allergies Allergy Verified 08/29/21 23:38 Review of Systems ROS Statement: Those systems with pertinent positive or pertinent negative responses have been documented in the HPI. ROS Other: All systems not noted in ROS Statement are negative. Past Medical History Past Medical History: No Reported History History of Any Multi-Drug Resistant Organisms: None Reported Past Surgical History: Orthopedic Surgery Additional Past Surgical History / Comment(s): Left hip surgery, left testicle. Past Anesthesia/Blood Transfusion Reactions: No Reported Reaction Past Psychological History: No Psychological Hx Reported Smoking Status: Current every day smoker Past Alcohol Use History: Daily Past Drug Use History: None Reported General Exam Limitations: altered mental status, physical limitation General appearance: alert, lethargic, obtunded Head exam: Present: atraumatic, normocephalic, normal inspection Eye exam: Present: normal appearance, PERRL, EOMI. Absent: scleral icterus, conjunctival injection, periorbital swelling ENT exam: Present: normal exam, mucous membranes dry Neck exam: Present: normal inspection. Absent: tenderness, meningismus, lymphadenopathy Respiratory exam: Present: normal lung sounds bilaterally. Absent: respiratory distress, wheezes, rales, rhonchi, stridor Cardiovascular Exam: Present: normal rhythm, tachycardia, normal heart sounds. Absent: systolic murmur, diastolic murmur, rubs, gallop, clicks GI/Abdominal exam: Present: soft, normal bowel sounds. Absent: distended, tenderness, guarding, rebound, rigid Extremities exam: Present: normal inspection, full ROM, normal capillary refill. Absent: tenderness, pedal edema, joint swelling, calf tenderness Back exam: Present: normal inspection Neurological exam: Present: altered, CN II-XII intact Psychiatric exam: Present: depressed Skin exam: Present: warm, dry, intact, normal color. Absent: rash Course Vital Signs 08/29/21 08/29/21 08/30/21 23:28 23:30 00:00 Temperature 96.9 F L Pulse Rate 102 H 101 H Respiratory 24 28 H Rate Blood Pressure 126/66 136/84 137/78 O2 Sat by Pulse 87 L Oximetry 08/30/21 08/30/21 08/30/21 00:30 01:00 01:30 Temperature Pulse Rate 101 H 98 111 H Respiratory 22 15 22 Rate Blood Pressure 133/91 134/69 134/79 O2 Sat by Pulse 97 97 97 Oximetry 08/30/21 08/30/21 02:00 02:30 Temperature Pulse Rate 110 H 117 H Respiratory 17 22 Rate Blood Pressure 149/76 137/71 O2 Sat by Pulse 95 93 L Oximetry - Reevaluation(s) Reevaluation #1: 08/30/21 04:15 Medical record is reviewed Reevaluation #2: 08/30/21 04:15 Patient's temperature has improved to normal for her back Reevaluation #3: 08/30/21 04:15 Patient informed of results and questions answered, patient's also spoke with regarding findings Reevaluation #4: 08/30/21 04:15 Patient has no recent improvement in symptoms - Consultations Consultation #1: Spoke with [facility] were agreed to admit this patient Medical Decision Making - Medical Decision Making 71 male to the emergency department for evaluation. Patient presents today for evaluation of altered mental status. Patient found a well check with unknown downtime. Patient is in renal failure likely rhabdomyolysis bilateral pneumonia. Per patient has history of alcoholism but currently has no alcohol on board. She last saw him a week ago - Lab Data Result diagrams: 08/29/21 23:23 08/29/21 23:23 Lab Results 08/29/21 08/29/21 08/29/21 Range/Units 23:23 23:23 23:23 WBC 13.5 H (3.8-10.6) k/uL RBC 4.46 (4.30-5.90) m/uL Hgb 14.1 (13.0-17.5) gm/dL Hct 43.1 (39.0-53.0) % MCV 96.7 (80.0-100.0) fL MCH 31.6 (25.0-35.0) pg MCHC 32.7 (31.0-37.0) g/dL RDW 14.2 (11.5-15.5) % Plt Count 220 (150-450) k/uL MPV 10.6 Neutrophils % Not Reportable Neutrophils % (Manual) 39 % Band Neuts % (Manual) 49 % Lymphocytes % Not Reportable Lymphocytes % (Manual) 7 % Monocytes % Not Reportable Monocytes % (Manual) 6 % Eosinophils % Not Reportable Basophils % Not Reportable Metamyelocytes % 1 % Neutrophils # Not Reportable Neutrophils # (Manual) 11.80 H (1.3-7.7) k/uL Lymphocytes # Not Reportable Lymphocytes # (Manual) 0.95 L (1.0-4.8) k/uL Monocytes # Not Reportable Monocytes # (Manual) 0.81 (0-1.0) k/uL Eosinophils # Not Reportable Basophils # Not Reportable Metamyelocytes # (Man) 0.14 H (0) k/uL Nucleated RBCs 0 (0-0) /100 WBC Manual Slide Review Performed Large Platelets Present Polychromasia Present Anisocytosis (manual) Present PT 14.0 H (9.0-12.0) sec INR 1.3 H (<1.2) APTT 21.6 L (22.0-30.0) sec VBG pH (7.31-7.41) VBG pCO2 (37-51) mmHg VBG HCO3 (24-28) mmol/L Sodium 139 (137-145) mmol/L Potassium 3.6 (3.5-5.1) mmol/L Chloride 102 (98-107) mmol/L Carbon Dioxide 23 (22-30) mmol/L Anion Gap 14 mmol/L BUN 108 H* (9-20) mg/dL Creatinine 2.53 H (0.66-1.25) mg/dL Est GFR (CKD-EPI)AfAm 28 (>60 ml/min/1.73 sqM) Est GFR (CKD-EPI)NonAf 25 (>60 ml/min/1.73 sqM) Glucose 112 H (74-99) mg/dL Calcium 13.3 H* (8.4-10.2) mg/dL Total Bilirubin 0.8 (0.2-1.3) mg/dL AST 64 H (17-59) U/L ALT 33 (4-49) U/L Alkaline Phosphatase 106 (38-126) U/L Ammonia (<30) umol/L Creatine Kinase (55-170) U/L CK-MB (CK-2) (0.0-2.4) ng/mL Troponin I (0.000-0.034) ng/mL Total Protein 5.6 L (6.3-8.2) g/dL Albumin 2.9 L (3.5-5.0) g/dL Lipase 96 (23-300) U/L TSH (0.465-4.680) mIU/L Urine Color Urine Appearance (Clear) Urine pH (5.0-8.0) Ur Specific [place] (1.001-1.035) Urine Protein (Negative) Urine Glucose (UA) (Negative) Urine Ketones (Negative) Urine Blood (Negative) Urine Nitrite (Negative) Urine Bilirubin (Negative) Urine Urobilinogen (<2.0) mg/dL Ur Leukocyte Esterase (Negative) Urine RBC (0-5) /hpf Urine WBC (0-5) /hpf Amorphous Sediment (None) /hpf Urine Opiates Screen (NotDetected) Ur Oxycodone Screen (NotDetected) Urine Methadone Screen (NotDetected) Ur Propoxyphene Screen (NotDetected) Ur Barbiturates Screen (NotDetected) U Tricyclic Antidepress (NotDetected) Ur Phencyclidine Scrn (NotDetected) Ur Amphetamines Screen (NotDetected) U Methamphetamines Scrn (NotDetected) U Benzodiazepines Scrn (NotDetected) Urine Cocaine Screen (NotDetected) U Marijuana (THC) Screen (NotDetected) Serum Alcohol <10 mg/dL 08/29/21 08/29/21 08/29/21 Range/Units 23:23 23:23 23:23 WBC (3.8-10.6) k/uL RBC (4.30-5.90) m/uL Hgb (13.0-17.5) gm/dL Hct (39.0-53.0) % MCV (80.0-100.0) fL MCH (25.0-35.0) pg MCHC (31.0-37.0) g/dL RDW (11.5-15.5) % Plt Count (150-450) k/uL MPV Neutrophils % Neutrophils % (Manual) % Band Neuts % (Manual) % Lymphocytes % Lymphocytes % (Manual) % Monocytes % Monocytes % (Manual) % Eosinophils % Basophils % Metamyelocytes % % Neutrophils # Neutrophils # (Manual) (1.3-7.7) k/uL Lymphocytes # Lymphocytes # (Manual) (1.0-4.8) k/uL Monocytes # Monocytes # (Manual) (0-1.0) k/uL Eosinophils # Basophils # Metamyelocytes # (Man) (0) k/uL Nucleated RBCs (0-0) /100 WBC Manual Slide Review Large Platelets Polychromasia Anisocytosis (manual) PT (9.0-12.0) sec INR (<1.2) APTT (22.0-30.0) sec VBG pH (7.31-7.41) VBG pCO2 (37-51) mmHg VBG HCO3 (24-28) mmol/L Sodium (137-145) mmol/L Potassium (3.5-5.1) mmol/L Chloride (98-107) mmol/L Carbon Dioxide (22-30) mmol/L Anion Gap mmol/L BUN (9-20) mg/dL Creatinine (0.66-1.25) mg/dL Est GFR (CKD-EPI)AfAm (>60 ml/min/1.73 sqM) Est GFR (CKD-EPI)NonAf (>60 ml/min/1.73 sqM) Glucose (74-99) mg/dL Calcium (8.4-10.2) mg/dL Total Bilirubin (0.2-1.3) mg/dL AST (17-59) U/L ALT (4-49) U/L Alkaline Phosphatase (38-126) U/L Ammonia <9 (<30) umol/L Creatine Kinase 316 H (55-170) U/L CK-MB (CK-2) (0.0-2.4) ng/mL Troponin I 0.064 H* (0.000-0.034) ng/mL Total Protein (6.3-8.2) g/dL Albumin (3.5-5.0) g/dL Lipase (23-300) U/L TSH (0.465-4.680) mIU/L Urine Color Urine Appearance (Clear) Urine pH (5.0-8.0) Ur Specific [place] (1.001-1.035) Urine Protein (Negative) Urine Glucose (UA) (Negative) Urine Ketones (Negative) Urine Blood (Negative) Urine Nitrite (Negative) Urine Bilirubin (Negative) Urine Urobilinogen (<2.0) mg/dL Ur Leukocyte Esterase (Negative) Urine RBC (0-5) /hpf Urine WBC (0-5) /hpf Amorphous Sediment (None) /hpf Urine Opiates Screen (NotDetected) Ur Oxycodone Screen (NotDetected) Urine Methadone Screen (NotDetected) Ur Propoxyphene Screen (NotDetected) Ur Barbiturates Screen (NotDetected) U Tricyclic Antidepress (NotDetected) Ur Phencyclidine Scrn (NotDetected) Ur Amphetamines Screen (NotDetected) U Methamphetamines Scrn (NotDetected) U Benzodiazepines Scrn (NotDetected) Urine Cocaine Screen (NotDetected) U Marijuana (THC) Screen (NotDetected) Serum Alcohol mg/dL 08/29/21 08/29/21 08/29/21 Range/Units 23:23 23:23 23:24 WBC (3.8-10.6) k/uL RBC (4.30-5.90) m/uL Hgb (13.0-17.5) gm/dL Hct (39.0-53.0) % MCV (80.0-100.0) fL MCH (25.0-35.0) pg MCHC (31.0-37.0) g/dL RDW (11.5-15.5) % Plt Count (150-450) k/uL MPV Neutrophils % Neutrophils % (Manual) % Band Neuts % (Manual) % Lymphocytes % Lymphocytes % (Manual) % Monocytes % Monocytes % (Manual) % Eosinophils % Basophils % Metamyelocytes % % Neutrophils # Neutrophils # (Manual) (1.3-7.7) k/uL Lymphocytes # Lymphocytes # (Manual) (1.0-4.8) k/uL Monocytes # Monocytes # (Manual) (0-1.0) k/uL Eosinophils # Basophils # Metamyelocytes # (Man) (0) k/uL Nucleated RBCs (0-0) /100 WBC Manual Slide Review Large Platelets Polychromasia Anisocytosis (manual) PT (9.0-12.0) sec INR (<1.2) APTT (22.0-30.0) sec VBG pH 7.37 (7.31-7.41) VBG pCO2 40 (37-51) mmHg VBG HCO3 22 L (24-28) mmol/L Sodium (137-145) mmol/L Potassium (3.5-5.1) mmol/L Chloride (98-107) mmol/L Carbon Dioxide (22-30) mmol/L Anion Gap mmol/L BUN (9-20) mg/dL Creatinine (0.66-1.25) mg/dL Est GFR (CKD-EPI)AfAm (>60 ml/min/1.73 sqM) Est GFR (CKD-EPI)NonAf (>60 ml/min/1.73 sqM) Glucose (74-99) mg/dL Calcium (8.4-10.2) mg/dL Total Bilirubin (0.2-1.3) mg/dL AST (17-59) U/L ALT (4-49) U/L Alkaline Phosphatase (38-126) U/L Ammonia (<30) umol/L Creatine Kinase (55-170) U/L CK-MB (CK-2) 6.5 H (0.0-2.4) ng/mL Troponin I (0.000-0.034) ng/mL Total Protein (6.3-8.2) g/dL Albumin (3.5-5.0) g/dL Lipase (23-300) U/L TSH 5.210 H (0.465-4.680) mIU/L Urine Color Urine Appearance (Clear) Urine pH (5.0-8.0) Ur Specific [place] (1.001-1.035) Urine Protein (Negative) Urine Glucose (UA) (Negative) Urine Ketones (Negative) Urine Blood (Negative) Urine Nitrite (Negative) Urine Bilirubin (Negative) Urine Urobilinogen (<2.0) mg/dL Ur Leukocyte Esterase (Negative) Urine RBC (0-5) /hpf Urine WBC (0-5) /hpf Amorphous Sediment (None) /hpf Urine Opiates Screen (NotDetected) Ur Oxycodone Screen (NotDetected) Urine Methadone Screen (NotDetected) Ur Propoxyphene Screen (NotDetected) Ur Barbiturates Screen (NotDetected) U Tricyclic Antidepress (NotDetected) Ur Phencyclidine Scrn (NotDetected) Ur Amphetamines Screen (NotDetected) U Methamphetamines Scrn (NotDetected) U Benzodiazepines Scrn (NotDetected) Urine Cocaine Screen (NotDetected) U Marijuana (THC) Screen (NotDetected) Serum Alcohol mg/dL 08/30/21 Range/Units 00:08 WBC (3.8-10.6) k/uL RBC (4.30-5.90) m/uL Hgb (13.0-17.5) gm/dL Hct (39.0-53.0) % MCV (80.0-100.0) fL MCH (25.0-35.0) pg MCHC (31.0-37.0) g/dL RDW (11.5-15.5) % Plt Count (150-450) k/uL MPV Neutrophils % Neutrophils % (Manual) % Band Neuts % (Manual) % Lymphocytes % Lymphocytes % (Manual) % Monocytes % Monocytes % (Manual) % Eosinophils % Basophils % Metamyelocytes % % Neutrophils # Neutrophils # (Manual) (1.3-7.7) k/uL Lymphocytes # Lymphocytes # (Manual) (1.0-4.8) k/uL Monocytes # Monocytes # (Manual) (0-1.0) k/uL Eosinophils # Basophils # Metamyelocytes # (Man) (0) k/uL Nucleated RBCs (0-0) /100 WBC Manual Slide Review Large Platelets Polychromasia Anisocytosis (manual) PT (9.0-12.0) sec INR (<1.2) APTT (22.0-30.0) sec VBG pH (7.31-7.41) VBG pCO2 (37-51) mmHg VBG HCO3 (24-28) mmol/L Sodium (137-145) mmol/L Potassium (3.5-5.1) mmol/L Chloride (98-107) mmol/L Carbon Dioxide (22-30) mmol/L Anion Gap mmol/L BUN (9-20) mg/dL Creatinine (0.66-1.25) mg/dL Est GFR (CKD-EPI)AfAm (>60 ml/min/1.73 sqM) Est GFR (CKD-EPI)NonAf (>60 ml/min/1.73 sqM) Glucose (74-99) mg/dL Calcium (8.4-10.2) mg/dL Total Bilirubin (0.2-1.3) mg/dL AST (17-59) U/L ALT (4-49) U/L Alkaline Phosphatase (38-126) U/L Ammonia (<30) umol/L Creatine Kinase (55-170) U/L CK-MB (CK-2) (0.0-2.4) ng/mL Troponin I (0.000-0.034) ng/mL Total Protein (6.3-8.2) g/dL Albumin (3.5-5.0) g/dL Lipase (23-300) U/L TSH (0.465-4.680) mIU/L Urine Color Yellow Urine Appearance Clear (Clear) Urine pH 6.0 (5.0-8.0) Ur Specific [place] 1.018 (1.001-1.035) Urine Protein Trace H (Negative) Urine Glucose (UA) 3+ H (Negative) Urine Ketones 1+ H (Negative) Urine Blood Negative (Negative) Urine Nitrite Negative (Negative) Urine Bilirubin Negative (Negative) Urine Urobilinogen <2.0 (<2.0) mg/dL Ur Leukocyte Esterase Negative (Negative) Urine RBC 1 (0-5) /hpf Urine WBC <1 (0-5) /hpf Amorphous Sediment Occasional H (None) /hpf Urine Opiates Screen Not Detected (NotDetected) Ur Oxycodone Screen Not Detected (NotDetected) Urine Methadone Screen Not Detected (NotDetected) Ur Propoxyphene Screen Not Detected (NotDetected) Ur Barbiturates Screen Not Detected (NotDetected) U Tricyclic Antidepress Not Detected (NotDetected) Ur Phencyclidine Scrn Not Detected (NotDetected) Ur Amphetamines Screen Not Detected (NotDetected) U Methamphetamines Scrn Not Detected (NotDetected) U Benzodiazepines Scrn Not Detected (NotDetected) Urine Cocaine Screen Not Detected (NotDetected) U Marijuana (THC) Screen Not Detected (NotDetected) Serum Alcohol mg/dL - EKG Data -: EKG Interpreted by Me (EKG shows sinus rhythm 102 [place] 126 QRS 87 QTC 406) - Radiology Data Radiology results: report reviewed (CT brain C-spine negative for acute disease chest x-rays positive for bilateral pneumonia), image reviewed Critical Care Time Critical Care Time: Yes Total Critical Care Time: 31 Disposition Clinical Impression: Altered mental status, Bilateral pneumonia, Uremia, ARF (acute renal failure) [facility] Condition: Serious Is patient prescribed a controlled substance at d/c from ED?: No Referrals: None,Stated [REFERRING] - 1-2 days
[2021-08-29 23:56] LABS: VBG PH 7.37 (7.31-7.41)
[2021-08-29 23:58] LABS: ALT 33 U/L (4-49); AST 64 U/L (17-59); African American GFR (CKD) 28 (>60 ml/min/1.73 sqM); Albumin 2.9 g/dL (3.5-5.0); Alcohol <10 mg/dL; Alkaline Phosphatase 106 U/L (38-126); Anion Gap 14 mmol/L; Carbon Dioxide 23 mmol/L (22-30); Chloride 102 mmol/L (98-107); Glucose 112 mg/dL (74-99); Lipase 96 U/L (23-300); Non-African American GFR(CKD) 25 (>60 ml/min/1.73 sqM); Potassium 3.6 mmol/L (3.5-5.1); Sodium 139 mmol/L (137-145); Total Bilirubin 0.8 mg/dL (0.2-1.3); Total Protein 5.6 g/dL (6.3-8.2)
[2021-08-30 00:01] LABS: Blood Urea Nitrogen 108 mg/dL (9-20)
[2021-08-30 00:05] LABS: Calcium 13.3 mg/dL (8.4-10.2); HCT 43.1 % (39.0-53.0); HGB 14.1 gm/dL (13.0-17.5); MCH 31.6 pg (25.0-35.0); MCHC 32.7 g/dL (31.0-37.0); MCV 96.7 fL (80.0-100.0); Mean Platelet Volume 10.6; Platelet Count 220 k/uL (150-450); RBC 4.46 m/uL (4.30-5.90); RDW 14.2 % (11.5-15.5); WBC 13.5 k/uL (3.8-10.6)
[2021-08-30 00:29] LABS: INR 1.3 (<1.2)
[2021-08-30 00:33] LABS: Partial Thromboplastin Time 21.6 sec (22.0-30.0)
--- NOTE | 2021-08-30 00:37 | CT ---
EXAMINATION TYPE: CT brain cspine wo con DATE OF EXAM: 08/30/2021 COMPARISON: CT brain 8821 HISTORY: ams CT DLP: 1273.3 mGycm Automated exposure control for dose reduction was used. Images obtained from the skull base to T1 vertebra without contrast. Images obtained of the brain wit hout contrast. FINDINGS: There is cerebral atrophy. There is enlargement of the ventricles. There is no mass effect or midline shift. There is no sign of intracranial hemorrhage. The calvarium is intact. The skull base is intac t. There is limited pneumatization of the mastoid sinuses. The cervical vertebra have normal alignment. Posterior elements are intact. Facet joints are intact. There is multilevel cervical hypertrophic facet arthropathy. Prevertebral soft tissues are intact. Th ere is degenerative anterior spurring in the mid and lower cervical spine. There is a 10 mm lucency in the posterior inferior C4 vertebral body. There is some lucency in the an terior C7 and anterior inferior T1 vertebral bodies. There is partial visualization of an infiltrate in the posterior right upper lobe adjacent to the rudi st wall. IMPRESSION: There is hydrocephalus and cerebral atrophy without change compared to old exam. No acute intracrania l abnormality. No evidence of cervical spine fracture. There are lytic lesions in the vertebral bodies at raise the possibility of multiple myeloma. Follow- up recommended. T1 lytic lesion is new compared to chest CT scan of 10/10/2020 There is some consolidation measuring 3 cm adjacent to the pleura in the posterior right upper lobe a nd this is not completely visualized.
[2021-08-30 00:41] LABS: Amorphous Sediment,Urine Occasional /hpf; Appearance,Urine Clear (Clear); Bilirubin,Urine Negative (Negative); Blood,Urine Negative (Negative); Color,Urine Yellow; Glucose,Urine (UA) 3+ (Negative); Ketones,Urine 1+ (Negative); Leukocyte Esterase,Urine Negative (Negative); Nitrite,Urine Negative (Negative); Protein,Urine Trace (Negative); RBC,Urine 1 /hpf (0-5); Specific Gravity,Urine 1.018 (1.001-1.035); Urobilinogen,Urine <2.0 mg/dL (<2.0); WBC,Urine <1 /hpf (0-5)
[2021-08-30 00:48] LABS: Amphetamine Screen,Urine Not Detected (NotDetected); Barbiturate Screen,Urine Not Detected (NotDetected); Benzodiazepines Screen,Urine Not Detected (NotDetected); Cocaine Screen,Urine Not Detected (NotDetected); Methadone Screen, Urine Not Detected (NotDetected); Opiate Screen,Urine Not Detected (NotDetected); Oxycodone Screen, Urine Not Detected (NotDetected); Phencyclidine Screen,Urine Not Detected (NotDetected); Tricyclic Antidepressant,Urine Not Detected (NotDetected); Urn Cannabinoid Scrn Not Detected (NotDetected)
--- NOTE | 2021-08-30 01:20 | XR ---
EXAMINATION TYPE: XR chest 1V portable DATE OF EXAM: 08/30/2021 COMPARISON: 06/27/2018 HISTORY: Short of breath TECHNIQUE: Single view FINDINGS: There is some patchy airspace infiltrate right upper lobe. Left lung is fairly clear. There is a small infiltrate behind the heart in the left lower lobe. No heart failure seen. Heart size is normal. There are chest leads. There is no pleural effusion. IMPRESSION: There is right upper lobe and left lower lobe pneumonia which is new compared to old exam . Normal heart.
[2021-08-30 02:00] LABS: Anisocytosis (M) Present; Band Neutrophils % 49 %; Lymphocytes # (M) 0.95 k/uL (1.0-4.8); Metamyelocytes # (M) 0.14 k/uL (0); Metamyelocytes % 1 %; Monocytes # (M) 0.81 k/uL (0-1.0); Neutrophils % (M) 39 %; Nucleated Red Blood Cells 0 /100 WBC (0-0); Total Cells Counted 200
[2021-08-30 02:01] LABS: Large Platelets Present; Polychromasia Present
[2021-08-30] MEDS ORDERED: SODIUM CHLORIDE 0.9% 1,000 ML IV STA (03:30)
[2021-08-30] MEDS ORDERED: IPRATROPIUM-ALBUTEROL 3 ML NEB INHALATION STA (03:52)
[2021-08-30] MEDS ORDERED: LEVOFLOXACIN 750MG-D5W PMX 750 MG in DEXTROSE/WATER 1 150ML.BAG IVPB STA (03:52)
[2021-08-30] MEDS ORDERED: PIPERACILLIN-TAZOBACTAM 3.375 GM in SODIUM CHLORIDE 0.9% 100 ML IVPB ONE (04:00)
[2021-08-30] MEDS ORDERED: LEVOFLOXACIN 750MG-D5W PMX 750 MG in DEXTROSE/WATER 1 150ML.BAG IVPB SCH (04:00)
[2021-08-30 04:31] LABS: T4, Free (Free Thyroxine) 1.42 ng/dL (0.78-2.19)
[2021-08-30] MEDS: IPRATROPIUM-ALBUTEROL 3 ML NEB INHALATION SCH ×5 (04:32→23:39)
[2021-08-30] MEDS ORDERED: SODIUM CHLORIDE 0.9% 500 ML 500 ML IV STA (06:38)
[2021-08-30] MEDS ORDERED: DEXTROSE 5%-0.45% NACL 1,000 ML IV ONE (06:38)
[2021-08-30 06:42] LABS: Glucose,Whole Blood 105 mg/dL (75-99)
[2021-08-30 13:11] LABS: Glucose,Whole Blood 140 mg/dL (75-99)
--- NOTE | 2021-08-30 14:00 | P.CNNES ---
History of Present Illness Consult date: 08/30/21 Requesting physician: Alec Rodrigues Reason for Consult: altered mental status History of Present Illness: This is a 71-year-old gentleman who presented to the emergency department on 08/29/2021 for altered mental status. History is obtained from medical records. Per the ED note it is mentioned that EMS the stated that the patient was found down in the apartment and he was found unresponsive. Per the patient's nurse she was notified that his the ex- notified the ED team that he was last seen normal about a week ago. The patient has history of alcohol use. Some of the work-up in the hospital consisted of: Initial vitals his blood pressure of 126/66, heart rate of 102, respiratory of 24, temperature of 96.9 Fahrenheit axillary, pulse ox of 87% room air. The next temperature is a 98.1 Fahrenheit Initial white blood cells 13.5 and it's the predominantly neutrophilic otherwise the rest of CBC differential is unremarkable Creatinine is 2.53, BUN of 108, initial serum glucoses of 112, calcium is 13.3, AST of 64, ALT 33, ammonia is less than 9, CK level is 316. TSH is 5.210 and the free T4 is 1.42 Urinalysis is negative for urinary tract infection Urine drug screen is nondetected and serum alcohol was less than 10 CT of the head is reported as there is hydrocephalus and cerebral atrophy without change compared to old exam. No acute intracranial abnormality. I personally reviewed the CT of the head and there is no acute subacute ischemia and there is no typical hemorrhage. I do agree there is hydrocephalus throughout all ventricles but predominately over the posterolateral ventricles CT cervical spine is reported as there are lytic lesion in the vertebral bodies which raised the possibility of multiple myeloma. Follow-up recommended. T1 lytic lesions is new compared to the chest computed tomography scan of 10/10/2020. There is some consultation measuring 3 cm adjacent to the pleura in the posterior right upper lobe and this is not completely visualized Chest x-ray was reported as there is right upper lobe and left upper lobe pneumonia which is new compared to old exam. Review of Systems Review of system is limited but the per positive and negative as per HPI. Past Medical History Past Medical History: No Reported History History of Any Multi-Drug Resistant Organisms: None Reported Past Surgical History: Orthopedic Surgery Additional Past Surgical History / Comment(s): Left hip surgery, left testicle. Past Anesthesia/Blood Transfusion Reactions: No Reported Reaction Past Psychological History: No Psychological Hx Reported Smoking Status: Current every day smoker Past Alcohol Use History: Daily Past Drug Use History: None Reported Medications and Allergies Home Medications Medication Instructions Recorded Confirmed Type Folic Acid 1 mg PO DAILY 01/18/21 08/30/21 History Pyridoxine HCl (Vitamin B6) 25 mg PO DAILY 01/18/21 08/30/21 History [Pyridoxine HCl] Thiamine HCl [Vitamin B-1] 100 mg PO DAILY 01/18/21 08/30/21 History Allergies Allergy/AdvReac Type Severity Reaction Status Date / Time No Known Allergies Allergy Verified 08/30/21 13:17 Physical Examination - Vital Signs Vital Signs: Vital Signs Temp Pulse Resp BP Pulse Ox 08/30/21 12:38 98.8 F 121 H 133/70 08/30/21 12:00 117 H 25 H 124/64 98 08/30/21 11:30 113 H 26 H 106/63 98 08/30/21 11:00 129 H 22 108/69 96 08/30/21 10:30 131 H 28 H 104/63 96 08/30/21 10:00 129 H 27 H 100/60 97 08/30/21 09:30 128 H 25 H 104/65 99 08/30/21 09:00 130 H 22 99/64 98 08/30/21 08:30 129 H 28 H 99/64 98 08/30/21 08:00 131 H 24 103/60 99 08/30/21 07:30 128 H 23 119/62 08/30/21 07:00 125 H 21 102/56 08/30/21 06:30 134 H 33 H 96/60 96 08/30/21 06:00 137 H 37 H 85/57 97 08/30/21 05:30 34 H 93/57 96 08/30/21 05:00 98.7 F 138 H 24 92/64 96 08/30/21 04:41 138 H 08/30/21 04:32 135 H 08/30/21 04:30 135 H 25 H 127/57 94 L 08/30/21 04:25 130 H 26 H 114/60 96 08/30/21 04:00 135 H 20 136/68 94 L 08/30/21 03:30 129 H 26 H 121/65 96 08/30/21 03:00 128 H 20 110/66 94 L 08/30/21 02:30 117 H 22 137/71 93 L 08/30/21 02:00 110 H 17 149/76 95 08/30/21 01:30 111 H 22 134/79 97 08/30/21 01:00 98 15 134/69 97 08/30/21 00:30 101 H 22 133/91 97 08/30/21 00:01 90.1 F L 08/30/21 00:00 101 H 28 H 137/78 08/29/21 23:30 136/84 08/29/21 23:28 96.9 F L 102 H 24 126/66 87 L Intake and Output 08/29/21 08/30/21 08/30/21 22:59 06:59 14:59 Output Total 700 1425 Balance -700 -1425 Output: Urine 700 1425 Uretheral (Mariee) 700 Other: Weight 63.503 kg GENERAL: The patient is lying in bed and does not seem in acute distress. HENT: Supple neck. CHEST: The heart rate is regular rate rhythm. No murmurs to auscultation. LUNG: Clear to auscultation bilaterally no wheezing noted throughout. Not labored breathing. ABDOMEN/GI: Bowel sounds present in all 4 quadrants. No tenderness to palpation throughout. NEUROLOGICAL: Limited because of his condition. Higher mental function: The patient is drowsy but is awakeable to voice. He correctly stated his name. Otherwise he is not verbalizing. He is following few simple commands (thumbs up, making fist). Could not assess language. Cranial nerves: The pupils are round, equal and reactive to light. No facial weakness. No dysarthria from limited language. Motor:Gait is deferred. The strength is withdrawing all extremities to painful stimuli. Could not assess individual muscle. Slight decrease tone throughout. Normal bulk. Has some tremors of bilateral hand that is nonrhythmic. Cerebellum: Could not assess. Sensation: Could not assess light touch but withdrawing to painful stimuli throu ghout. Reflexes (right/left): Seems brisk throughout uppers and patellars. Ankles are 2+ Plantars are mute bilaterally. Results - Laboratory Findings CBC and BMP: 08/29/21 23:23 08/29/21 23:23 Abnormal Lab Findings: Abnormal Labs 08/29/21 08/29/21 08/29/21 23:23 23:23 23:23 WBC 13.5 H Neutrophils # (Manual) 11.80 H Lymphocytes # (Manual) 0.95 L Metamyelocytes # (Man) 0.14 H PT 14.0 H INR 1.3 H APTT 21.6 L VBG HCO3 BUN 108 H* Creatinine 2.53 H Glucose 112 H POC Glucose (mg/dL) Calcium 13.3 H* AST 64 H Creatine Kinase CK-MB (CK-2) Troponin I Total Protein 5.6 L Albumin 2.9 L TSH Free T3 pg/mL Urine Protein Urine Glucose (UA) Urine Ketones Amorphous Sediment 08/29/21 08/29/21 08/29/21 23:23 23:23 23:23 WBC Neutrophils # (Manual) Lymphocytes # (Manual) Metamyelocytes # (Man) PT INR APTT VBG HCO3 BUN Creatinine Glucose POC Glucose (mg/dL) Calcium AST Creatine Kinase 316 H CK-MB (CK-2) 6.5 H Troponin I 0.064 H* Total Protein Albumin TSH Free T3 pg/mL Urine Protein Urine Glucose (UA) Urine Ketones Amorphous Sediment 08/29/21 08/29/21 08/29/21 23:23 23:23 23:24 WBC Neutrophils # (Manual) Lymphocytes # (Manual) Metamyelocytes # (Man) PT INR APTT VBG HCO3 22 L BUN Creatinine Glucose POC Glucose (mg/dL) Calcium AST Creatine Kinase CK-MB (CK-2) Troponin I Total Protein Albumin TSH 5.210 H Free T3 pg/mL 1.8 L Urine Protein Urine Glucose (UA) Urine Ketones Amorphous Sediment 08/30/21 08/30/21 00:08 06:41 WBC Neutrophils # (Manual) Lymphocytes # (Manual) Metamyelocytes # (Man) PT INR APTT VBG HCO3 BUN Creatinine Glucose POC Glucose (mg/dL) 105 H Calcium AST Creatine Kinase CK-MB (CK-2) Troponin I Total Protein Albumin TSH Free T3 pg/mL Urine Protein Trace H Urine Glucose (UA) 3+ H Urine Ketones 1+ H Amorphous Sediment Occasional H Assessment and Plan Assessment: This is a 71-year-old gentleman with history of reported alcohol use was found last normal about a week ago and it was found unresponsive by EMS. Encephalopathy seems metabolic as well as possibly due to underlying pneumonia. Patient has hypercalcemia 13.3, acute kidney injury Hypercalcemia of 13.[address] of the neck has lytic lesion and questio nable multiple myeloma Acute kidney injury of creatinine of 2.53 Possibly underlying pneumonia and chest x-ray Alcohol use Plan: * Ordered EEG. I'll not start the patient on an antiepileptic drug unless there is epileptiform discharges or seizure on the EEG * Ordered vitamin B12, folate level, ionized calcium. I ordered the parathyroid hormone * CT of the head is reported as there is hydrocephalus and cerebral atrophy without change compared to old exam. No acute intracranial abnormality. I personally reviewed the CT of the head and there is no acute subacute ischemia and there is no typical hemorrhage. I do agree there is hydrocephalus throughout all ventricles but predominately over the posterolateral ventricles. I feel this is atypical for NPH since does not seems symmetrical enlargement. * I ordered MRI of the brain and the cervical spine w/o (cannot obtain w/ since KRISTIE). * Regarding the hypercalcemia and the lytic lesion for questionable multiple mye xochitl I consulted oncology team * Nephrology is consulted * Every 2 neurochecks * Started the patient on thiamine 100mg IV and once swallowing recommend to switch to PO. * Consulted PT and OT. * I'll defer the rest of the medical management to the primary team and ICU team. The plan is discussed with the patient's nurse. Thank you for the consultation Dr. Lu will start neurology service tomorrow AM. Jonny Mcclellan M.D. Neuro-hospitalist Time with Patient: Greater than 30
[2021-08-30] MEDS: PIPERACILLIN-TAZOBACTAM 3.375 GM in SODIUM CHLORIDE 0.9% 100 ML IVPB SCH ×2 (14:18→20:10)
[2021-08-30 14:59] LABS: Ionized Calcium 7.4 mg/dL (4.5-5.3)
[2021-08-30] MEDS: THIAMINE 100 MG/ML 2 ML VIAL IVP SCH (15:33)
--- NOTE | 2021-08-30 17:34 | P.CNPUL ---
History of Present Illness Consult date: 08/30/21 Chief complaint: Altered mental status History of present illness: 71-year-old male patient, extremely debilitated, emaciated, cachectic, brought into the ED on 08/29/2021 for altered mentation. Apparently, the ex- notified the ED that he was last seen normal approximately a week ago. He was found in a motel and the patient was brought into the hospital for further evaluation. The patient has history of alcoholism. Is a history of smoker. He has undergone lung cancer screening including a low-dose CAT scan back in 2020 that came back negative. He has had also several CAT scan of the chest throughout the current health system that showed no evidence 70 malignancy. Nevertheless, during this current admission, he was altered and he had significant metabolic abnormalities and the patient was found to have an acute kidney injury with a creatinine of 2.53 and a BUN of 108. His calcium level was 13.3 with ionized calcium level of 7.4. CPK was 316. Ammonia level was less than 9. AST was 64, ALT was 33, TSH was 5.2 with a free T4 of 1.4. UA was negative. Urine drug screen was negative. Alcohol level was less than 10. CAT scan of the brain showed hydrocephalus/cerebral atrophy without any significant change compared to the earlier exam. No evidence of any acute stroke. No evidence of any acute hemorrhage. CAT scan of the C-spine showed questionable lytic lesion of vertebral bodies the possibility of multiple myeloma. This was a T1 lytic lesion and this was new compared to the earlier CAT scan of 10/11/19 21. The chest x-ray was somewhat rotated. There was an area of infiltration in the right upper lobe which could represent potential underlying aspiration pneumonia. The white cell count currently is at 13.5 with a hemoglobin of 14. He has 49% bandemia, 39% neutrophilia, and lymphocytes were 7% with a monocytes of 6%. Potassium level was at 3.6. Troponin was at 0.06. In the ED, the patient was given a total of 2.5 L of IV fluids normal saline and currently the patient is on D5 half-normal saline running at 83 mL an hour. He is started producing urine output. He remains altered. He withdraws to painful stimulation. He cannot carry a conversation. No neck stiffness. No fever. No signs of any trauma this point in time. No biting of the tongue or lip. No skin bruises. No signs of any seizure activity as the patient is not having any jerky body movements. The patient was in the hospital on 01/18/2021 for a fall and a hairline intra-articular fracture of the left acetabulum. At that time, the patient was having significant pain. Patient was seen by orthopedic surgery. No surgery was done and the patient was given a wheelchair to rest for the next 3 months. He was also discharged home nonweightbearing on the left. He denied to go to rehabilitation. Apparently, prior to his discharge, the patient was alert and oriented 3. He was supposed to follow up with orthopedic services within 2 weeks following his discharge. He was drinking alcohol in the order of XB is on a daily basis and the patient was counseled for alcohol cessation prior to his discharge. His discharge medications included [place] in addition to thiamine and B6 vitamin and he was also given Ultram for pain control and folic acid. Review of Systems ROS unobtainable: due to mental status Past Medical History Past Medical History: No Reported History, COPD Additional Past Medical History / Comment(s): ETOH abuse, left hip fracture,, right hilar lymphadenopathy as evident on a CAT scan of the chest that was done on 04/12/2021. Note that the same CAT scan was compared to the earlier CAT scan done in January 2021 and there was improvement in the lymphadenopathy along the right hilum. The patient had also nonspecific focal sclerosing lesion involving the L3 vertebral body. History of Any Multi-Drug Resistant Organisms: None Reported Past Surgical History: Orthopedic Surgery Additional Past Surgical History / Comment(s): Left hip surgery, left testicle. Past Anesthesia/Blood Transfusion Reactions: No Reported Reaction Past Psychological History: No Psychological Hx Reported Smoking Status: Current every day smoker Past Alcohol Use History: Daily Past Drug Use History: None Reported Medications and Allergies Home Medications Medication Instructions Recorded Confirmed Type Folic Acid 1 mg PO DAILY 01/18/21 08/30/21 History Pyridoxine HCl (Vitamin B6) 25 mg PO DAILY 01/18/21 08/30/21 History [Pyridoxine HCl] Thiamine HCl [Vitamin B-1] 100 mg PO DAILY 01/18/21 08/30/21 History Allergies Allergy/AdvReac Type Severity Reaction Status Date / Time No Known Allergies Allergy Verified 08/30/21 13:17 Physical Exam Vitals: Vital Signs Temp Pulse Resp BP Pulse Ox 08/30/21 17:00 114 H 27 H 113/65 96 08/30/21 16:00 98.8 F 105 H 17 110/64 96 08/30/21 15:15 117 H 08/30/21 15:05 116 H 08/30/21 15:00 106 H 18 113/77 95 08/30/21 14:00 112 H 18 113/77 95 08/30/21 13:15 98 F 117 H 20 135/70 95 08/30/21 12:38 98.8 F 121 H 133/70 08/30/21 12:00 117 H 25 H 124/64 98 08/30/21 11:30 113 H 26 H 106/63 98 08/30/21 11:00 129 H 22 108/69 96 08/30/21 10:30 131 H 28 H 104/63 96 08/30/21 10:00 129 H 27 H 100/60 97 08/30/21 09:30 128 H 25 H 104/65 99 08/30/21 09:00 130 H 22 99/64 98 08/30/21 08:30 129 H 28 H 99/64 98 08/30/21 08:00 131 H 24 103/60 99 08/30/21 07:30 128 H 23 119/62 08/30/21 07:00 125 H 21 102/56 08/30/21 06:30 134 H 33 H 96/60 96 08/30/21 06:00 137 H 37 H 85/57 97 08/30/21 05:30 34 H 93/57 96 08/30/21 05:00 98.7 F 138 H 24 92/64 96 08/30/21 04:41 138 H 08/30/21 04:32 135 H 08/30/21 04:30 135 H 25 H 127/57 94 L 08/30/21 04:25 130 H 26 H 114/60 96 08/30/21 04:00 135 H 20 136/68 94 L 08/30/21 03:30 129 H 26 H 121/65 96 08/30/21 03:00 128 H 20 110/66 94 L 08/30/21 02:30 117 H 22 137/71 93 L 08/30/21 02:00 110 H 17 149/76 95 03/20/22 01:30 111 H 22 134/79 97 08/30/21 01:00 98 15 134/69 97 08/30/21 00:30 101 H 22 133/91 97 08/30/21 00:01 90.1 F L 08/30/21 00:00 101 H 28 H 137/78 08/29/21 23:30 136/84 08/29/21 23:28 96.9 F L 102 H 24 126/66 87 L Intake and Output 08/30/21 08/30/21 08/30/21 06:59 14:59 22:59 Intake Total 191 324 Output Total 700 1485 210 Balance -700 -1294 114 Intake: Intake, IV Titration 191 324 Amount Dextrose 5%-0.45% NaCl 1, 166 249 000 ml @ 83 mls/hr IV . Q12H3M [facility] Rx#:[id number] Piperacillin-Tazobactam 3 25 75 .375 gm In Sodium Chloride 0.9% 100 ml @ 25 mls/hr IVPB Q8H [facility] Rx#: [id number] Output: Urine 700 1485 210 Uretheral (Mariee) 700 Other: Voiding Method Indwelling Catheter Indwelling Catheter Weight 63.503 kg 64.3 kg The patient is altered, emaciated, cachectic, not responsive, unable to communicate. He has a thick emerson beers. His personal hygiene is extremely poor. His mucous membranes are dry. Head exam was generally normal. There was no scleral icterus or corneal arcus. Mucous membranes were moist. Neck was supple and without jugular venous distension, thyromegaly, or carotid bruits. Carotids were easily palpable bilaterally. There was no adenopathy.. The patient is edentulous Lungs were clear to auscultation and percussion, and with normal diaphragmatic excursion. No wheezes or rales were noted. Cardiac exam revealed the PMI to be normally situated and sized. The rhythm was regular and no extrasystoles were noted during several minutes of auscultation. The first and second heart sounds were normal and physiologic splitting of the second heart sound was noted. There were no murmurs, rubs, clicks, or gallops. Abdominal exam revealed normal bowel sounds. The abdomen was soft, non-tender, and without masses, organomegaly, or appreciable enlargement of the abdominal aorta. Extremities are negative for any cyanosis or clubbing. No significant edema noted. Examination of the skin revealed no evidence of significant rashes, suspicious appearing nevi or other concerning lesions. Neurologically the patient moans, occasionally opens up his eyes spontaneously. No facial asymmetry. Withdraws to painful stimulation. No purposeful activity. No seizure activity. Pupils are equal and reactive to light. No nystagmus. No clonus. Results - Laboratory Findings CBC and BMP: 08/29/21 23:23 08/29/21 23:23 PT/INR, D-dimer PT 14.0 sec (9.0-12.0) H 08/29/21 23:23 INR 1.3 (<1.2) H 08/29/21 23:23 Abnormal lab findings: Abnormal Labs 08/29/21 08/29/21 08/29/21 23:23 23:23 23:23 WBC 13.5 H Neutrophils # (Manual) 11.80 H Lymphocytes # (Manual) 0.95 L Metamyelocytes # (Man) 0.14 H PT 14.0 H INR 1.3 H APTT 21.6 L VBG HCO3 BUN 108 H* Creatinine 2.53 H Glucose 112 H POC Glucose (mg/dL) Calcium 13.3 H* Ionized Calcium Vera AST 64 H Creatine Kinase CK-MB (CK-2) Troponin I Total Protein 5.6 L Albumin 2.9 L TSH Free T3 pg/mL Urine Protein Urine Glucose (UA) Urine Ketones Amorphous Sediment 08/29/21 08/29/21 08/29/21 23:23 23:23 23:23 WBC Neutrophils # (Manual) Lymphocytes # (Manual) Metamyelocytes # (Man) PT INR APTT VBG HCO3 BUN Creatinine Glucose POC Glucose (mg/dL) Calcium Ionized Calcium Vera AST Creatine Kinase 316 H CK-MB (CK-2) 6.5 H Troponin I 0.064 H* Total Protein Albumin TSH Free T3 pg/mL Urine Protein Urine Glucose (UA) Urine Ketones Amorphous Sediment 08/29/21 08/29/21 08/29/21 23:23 23:23 23:24 WBC Neutrophils # (Manual) Lymphocytes # (Manual) Metamyelocytes # (Man) PT INR APTT VBG HCO3 22 L BUN Creatinine Glucose POC Glucose (mg/dL) Calcium Ionized Calcium Vera AST Creatine Kinase CK-MB (CK-2) Troponin I Total Protein Albumin TSH 5.210 H Free T3 pg/mL 1.8 L Urine Protein Urine Glucose (UA) Urine Ketones Amorphous Sediment 08/30/21 08/30/21 08/30/21 00:08 06:41 13:09 WBC Neutrophils # (Manual) Lymphocytes # (Manual) Metamyelocytes # (Man) PT INR APTT VBG HCO3 BUN Creatinine Glucose POC Glucose (mg/dL) 105 H 140 H Calcium Ionized Calcium Vera AST Creatine Kinase CK-MB (CK-2) Troponin I Total Protein Albumin TSH Free T3 pg/mL Urine Protein Trace H Urine Glucose (UA) 3+ H Urine Ketones 1+ H Amorphous Sediment Occasional H 08/30/21 14:07 WBC Neutrophils # (Manual) Lymphocytes # (Manual) Metamyelocytes # (Man) PT INR APTT VBG HCO3 BUN Creatinine Glucose POC Glucose (mg/dL) Calcium Ionized Calcium Vera 7.4 H* AST Creatine Kinase CK-MB (CK-2) Troponin I Total Protein Albumin TSH Free T3 pg/mL Urine Protein Urine Glucose (UA) Urine Ketones Amorphous Sediment - Diagnostic Findings Chest x-ray: image reviewed Assessment and Plan Plan: 1 acute mental status change, under investigation. CAT scan of the brain is negative is shows significant diffuse [employer] atrophy. Rule out metabolic enceph alopathy as the patient developed an acute kidney injury along with significant electrode disturbance in the form of hypercalcemia. No clear evidence of acute CVA in this patient. Neck is not stiff and there is no suspicion for meningitis or encephalitis and the patient is not having any fever at this point in time. Neurology evaluated the patient. 2 acute kidney injury 3 acute hypercalcemia, rule out malignant hypercalcemia. Consider possibility of solid tumor with skeletal metastases including lung cancer, prostate cancer. Consider underlying multiple myeloma. Primary hyperparathyroidism is concerned to be less likely 4 acute hypoxic respiratory failure currently on 4l 02 by nasal cannula. There is a new infiltration of the right upper lobe area, consider aspiration and the patient was given accommodation Zosyn and Levaquin in the emergency department 5 acute dehydration secondary to above 6 lytic lesion involving the T1 spine 7 COPD 8 history of right hilar lymphadenopathy, showed improvement in the most recent CAT scan of the chest 9 alcoholism 10 significant malnourishment and poor baseline performance and functional status 11 recent hospitalization for a left hairline hip fracture, treated conservatively without any surgical intervention Plan Continue IV fluids and increase the maintenance up to 150 mL an hour Give the patient does of pamidronate 90 mg IV piggyback and monitor the calcium level Check serum protein electrophoresis, immunofixation both in the serum and the urine Check PSA Ultrasound the kidneys to rule out hydronephrosis CAT scan of the chest abdomen and pelvis once the patient is more stable probably first thing in the morning, prefer to do it with contrast and there is improvement in the patient's renal function Neurology consultation May need an oncology consultation if malignancy is confirmed Continue IV Zosyn Continue thiamine Obtain more information from family Heparin subcu for deep prophylaxis IV Protonix We'll continue to follow. Time with Patient: Greater than 30
--- NOTE | 2021-08-30 17:42 | P.HPIM ---
History of Present Illness H&P Date: 08/30/21 Chief Complaint: Altered mental status 71-year-old gentleman who presented to the emergency department on 08/29/2021 for altered mental status. History is obtained from medical records. Per the ED note it is mentioned that EMS the stated that the patient was found down in the apartment and he was found unresponsive. Per the patient's nurse she was notified that his the ex- notified the ED team that he was last seen normal about a week ago. The patient has history of alcohol use. Initial blood work reveals white blood cells 13.5; Creatinine is 2.53, BUN of 108, glucoses of 112, calcium is 13.3, AST of 64, ALT 33, ammonia is less than 9, CK level is 316. TSH is 5.210 and the free T4 is 1.42 Urinalysis is negative for urinary tract infection; Urine drug screen is negative and serum alcohol was less than 10 CT of the head is reported as there is hydrocephalus and cerebral atrophy without change compared to old exam. CT cervical spine is reported as there are lytic lesion in the vertebral bodies which raised the possibility of multiple myeloma. Chest x-ray was reported as there is right upper lobe and left upper lobe pneumonia which is new compared to old exam. Review of Systems ROS unobtainable: due to mental status Past Medical History Past Medical History: No Reported History History of Any Multi-Drug Resistant Organisms: None Reported Past Surgical History: Orthopedic Surgery Additional Past Surgical History / Comment(s): Left hip surgery, left testicle. Past Anesthesia/Blood Transfusion Reactions: No Reported Reaction Past Psychological History: No Psychological Hx Reported Smoking Status: Current every day smoker Past Alcohol Use History: Daily Past Drug Use History: None Reported Medications and Allergies Home Medications Medication Instructions Recorded Confirmed Type Folic Acid 1 mg PO DAILY 01/18/21 08/30/21 History Pyridoxine HCl (Vitamin B6) 25 mg PO DAILY 01/18/21 08/30/21 History [Pyridoxine HCl] Thiamine HCl [Vitamin B-1] 100 mg PO DAILY 01/18/21 08/30/21 History Allergies Allergy/AdvReac Type Severity Reaction Status Date / Time No Known Allergies Allergy Verified 08/30/21 13:17 Physical Exam Vitals: Vital Signs Temp Pulse Resp BP Pulse Ox 08/30/21 08:30 129 H 28 H 99/64 98 08/30/21 08:00 131 H 24 103/60 99 08/30/21 07:30 128 H 23 119/62 08/30/21 07:00 125 H 21 102/56 08/30/21 06:30 134 H 33 H 96/60 96 08/30/21 06:00 137 H 37 H 85/57 97 08/30/21 05:30 34 H 93/57 96 08/30/21 05:00 98.7 F 138 H 24 92/64 96 08/30/21 04:41 138 H 08/30/21 04:32 135 H 08/30/21 04:30 135 H 25 H 127/57 94 L 08/30/21 04:25 130 H 26 H 114/60 96 08/30/21 04:00 135 H 20 136/68 94 L 08/30/21 03:30 129 H 26 H 121/65 96 08/30/21 03:00 128 H 20 110/66 94 L 08/30/21 02:30 117 H 22 137/71 93 L 08/30/21 02:00 110 H 17 149/76 95 08/30/21 01:30 111 H 22 134/79 97 08/30/21 01:00 98 15 134/69 97 08/30/21 00:30 101 H 22 133/91 97 08/30/21 00:01 90.1 F L 08/30/21 00:00 101 H 28 H 137/78 08/29/21 23:30 136/84 08/29/21 23:28 96.9 F L 102 H 24 126/66 87 L Intake and Output 08/29/21 08/30/21 08/30/21 22:59 06:59 14:59 Output Total 700 1425 Balance -700 -1425 Output: Urine 700 1425 Uretheral (Mariee) 700 Other: Weight 63.503 kg General appearance: lethargic, obtunded Head exam: Present: atraumatic, normocephalic, normal inspection Eye exam: Present: normal appearance, PERRL, EOMI. Absent: scleral icterus, conjunctival injection, periorbital swelling ENT exam: Present: normal exam, mucous membranes dry Neck exam: Present: normal inspection. Absent: tenderness, meningismus, lymphadenopathy Respiratory exam: Present: normal lung sounds bilaterally. Absent: respiratory distress, wheezes, rales, rhonchi, stridor Cardiovascular Exam: Present: normal rhythm, tachycardia, normal heart sounds. Absent: systolic murmur, diastolic murmur, rubs, gallop, clicks GI/Abdominal exam: Present: soft, normal bowel sounds. Absent: distended, tenderness, guarding, rebound, rigid Extremities exam: Present: normal inspection, full ROM, normal capillary refill. Absent: tenderness, pedal edema, joint swelling, calf tenderness Back exam: Present: normal inspection Neurological exam: Present: altered, CN II-XII intact Psychiatric exam: Present: depressed Skin exam: Present: warm, dry, intact, normal color. Absent: rash Results CBC & Chem 7: 08/29/21 23:23 08/29/21 23:23 Labs: Abnormal Lab Results - Last 24 Hours (Table) 08/29/21 08/29/21 08/29/21 Range/Units 23:23 23:23 23:23 WBC 13.5 H (3.8-10.6) k/uL Neutrophils # (Manual) 11.80 H (1.3-7.7) k/uL Lymphocytes # (Manual) 0.95 L (1.0-4.8) k/uL Metamyelocytes # (Man) 0.14 H (0) k/uL PT 14.0 H (9.0-12.0) sec INR 1.3 H (<1.2) APTT 21.6 L (22.0-30.0) sec VBG HCO3 (24-28) mmol/L BUN 108 H* (9-20) mg/dL Creatinine 2.53 H (0.66-1.25) mg/dL Glucose 112 H (74-99) mg/dL POC Glucose (mg/dL) (75-99) mg/dL Calcium 13.3 H* (8.4-10.2) mg/dL AST 64 H (17-59) U/L Creatine Kinase (55-170) U/L CK-MB (CK-2) (0.0-2.4) ng/mL Troponin I (0.000-0.034) ng/mL Total Protein 5.6 L (6.3-8.2) g/dL Albumin 2.9 L (3.5-5.0) g/dL TSH (0.465-4.680) mIU/L Free T3 pg/mL (2.8-5.3) pg/ml Urine Protein (Negative) Urine Glucose (UA) (Negative) Urine Ketones (Negative) Amorphous Sediment (None) /hpf 08/29/21 08/29/21 08/29/21 Range/Units 23:23 23:23 23:23 WBC (3.8-10.6) k/uL Neutrophils # (Manual) (1.3-7.7) k/uL Lymphocytes # (Manual) (1.0-4.8) k/uL Metamyelocytes # (Man) (0) k/uL PT (9.0-12.0) sec INR (<1.2) APTT (22.0-30.0) sec VBG HCO3 (24-28) mmol/L BUN (9-20) mg/dL Creatinine (0.66-1.25) mg/dL Glucose (74-99) mg/dL POC Glucose (mg/dL) (75-99) mg/dL Calcium (8.4-10.2) mg/dL AST (17-59) U/L Creatine Kinase 316 H (55-170) U/L CK-MB (CK-2) 6.5 H (0.0-2.4) ng/mL Troponin I 0.064 H* (0.000-0.034) ng/mL Total Protein (6.3-8.2) g/dL Albumin (3.5-5.0) g/dL TSH (0.465-4.680) mIU/L Free T3 pg/mL (2.8-5.3) pg/ml Urine Protein (Negative) Urine Glucose (UA) (Negative) Urine Ketones (Negative) Amorphous Sediment (None) /hpf 08/29/21 08/29/21 08/29/21 Range/Units 23:23 23:23 23:24 WBC (3.8-10.6) k/uL Neutrophils # (Manual) (1.3-7.7) k/uL Lymphocytes # (Manual) (1.0-4.8) k/uL Metamyelocytes # (Man) (0) k/uL PT (9.0-12.0) sec INR (<1.2) APTT (22.0-30.0) sec VBG HCO3 22 L (24-28) mmol/L BUN (9-20) mg/dL Creatinine (0.66-1.25) mg/dL Glucose (74-99) mg/dL POC Glucose (mg/dL) (75-99) mg/dL Calcium (8.4-10.2) mg/dL AST (17-59) U/L Creatine Kinase (55-170) U/L CK-MB (CK-2) (0.0-2.4) ng/mL Troponin I (0.000-0.034) ng/mL Total Protein (6.3-8.2) g/dL Albumin (3.5-5.0) g/dL TSH 5.210 H (0.465-4.680) mIU/L Free T3 pg/mL 1.8 L (2.8-5.3) pg/ml Urine Protein (Negative) Urine Glucose (UA) (Negative) Urine Ketones (Negative) Amorphous Sediment (None) /hpf 08/30/21 08/30/21 Range/Units 00:08 06:41 WBC (3.8-10.6) k/uL Neutrophils # (Manual) (1.3-7.7) k/uL Lymphocytes # (Manual) (1.0-4.8) k/uL Metamyelocytes # (Man) (0) k/uL PT (9.0-12.0) sec INR (<1.2) APTT (22.0-30.0) sec VBG HCO3 (24-28) mmol/L BUN (9-20) mg/dL Creatinine (0.66-1.25) mg/dL Glucose (74-99) mg/dL POC Glucose (mg/dL) 105 H (75-99) mg/dL Calcium (8.4-10.2) mg/dL AST (17-59) U/L Creatine Kinase (55-170) U/L CK-MB (CK-2) (0.0-2.4) ng/mL Troponin I (0.000-0.034) ng/mL Total Protein (6.3-8.2) g/dL Albumin (3.5-5.0) g/dL TSH (0.465-4.680) mIU/L Free T3 pg/mL (2.8-5.3) pg/ml Urine Protein Trace H (Negative) Urine Glucose (UA) 3+ H (Negative) Urine Ketones 1+ H (Negative) Amorphous Sediment Occasional H (None) /hpf Assessment and Plan Assessment: 1. Altered mental status; etiology unclear; CT of the brain is unremarkable; suspected metabolic encephalopathy given acute renal injury and - Patient remains on IV fluids at rate of 150 mL an hour 2. Acute hypercalcemia; CT of abdomen pelvis reveals a lytic lesion involving T1 spine; rule out possibility of skeletal metastasis versus underlying multiple myeloma - Check serum protein electrophoresis, immunofixation both in the serum and the urine - Patient is started on pamidronate 90 mg IV piggyback and monitor the calcium level 3. Acute renal failure; patient remains on IV fluid hydration; renal ultrasound is ordered to rule out hydronephrosis 4. Acute hypoxic respiratory failure/right upper lobe pneumonia; patient has been placed on IV Zosyn and Levaquin; pulmonary consult placed 5. COPD; not in exacerbation 6. History of alcoholism; patient is currently on thiamine; more information needs to be obtained from family members DVT prophylaxis; SCDs/subcu heparin CODE STATUS; DO NOT RESUSCITATE
--- NOTE | 2021-08-30 17:45 | US ---
EXAMINATION TYPE: US kidneys/renal and bladder DATE OF EXAM: 08/30/2021 COMPARISON: NONE CLINICAL HISTORY: KRISTIE. ICU pt with AMS, physically trying to fight off tech while scanning, nonverbal and will not cooperate, KRISTIE EXAM MEASUREMENTS: Right Kidney: 8.9 x 3.5 x 4.8 cm Left Kidney: 9.0 x 3.7 x 4.7 cm Right Kidney: No hydronephrosis or masses seen, smaller in size Left Kidney: No hydronephrosis or masses seen, smaller in size Bladder: stanley cath seen There is no evidence for hydronephrosis at this point in time. No nephrolithiasis is seen. No clarke s are identified. The urinary bladder is anechoic. Bilateral ureteral jets are seen. IMPRESSION: 1. No evidence for obstructive uropathy. 2. Stanley catheter in place with small amount of urine within the bladder lumen. Correlate for Stanley m alfunction.
[2021-08-30] MEDS ORDERED: SODIUM CHLORIDE 0.9% 250 ML with PAMIDRONATE 90 MG IV ONE ×2 (18:00)
[2021-08-30] MEDS: DEXTROSE 5%-0.45% NACL 1,000 ML IV SCH (18:47)
[2021-08-30 22:46] LABS: Protein, Total 4.5 g/dL (6.2-8.2)
[2021-08-30] MEDS: HEPARIN SODIUM,PORCINE/PF 5,000 UNIT/0.5 ML SYRINGE SQ SCH (23:34)
[2021-08-31] MEDS: IPRATROPIUM-ALBUTEROL 3 ML NEB INHALATION SCH ×5 (03:08→19:23)
[2021-08-31 05:59] LABS: HCT 36.7 % (39.0-53.0); HGB 11.6 gm/dL (13.0-17.5); Hypochromasia Slight; MCH 31.8 pg (25.0-35.0); MCHC 31.5 g/dL (31.0-37.0); Macrocytosis Slight; Mean Platelet Volume 9.6; Platelet Count 152 k/uL (150-450); RBC 3.64 m/uL (4.30-5.90); WBC 9.5 k/uL (3.8-10.6)
[2021-08-31] MEDS ORDERED: LEVOFLOXACIN 750MG-D5W PMX 750 MG in DEXTROSE/WATER 1 150ML.BAG IVPB SCH (06:00)
[2021-08-31 06:07] LABS: Calcium 10.8 mg/dL (8.4-10.2)
[2021-08-31 06:16] LABS: Band Neutrophils % 47 %; Lymphocytes # (M) 0.38 k/uL (1.0-4.8); Metamyelocytes # (M) 0.19 k/uL (0); Metamyelocytes % 2 %; Monocytes # (M) 0.57 k/uL (0-1.0); Neutrophils % (M) 41 %; Nucleated Red Blood Cells 0 /100 WBC (0-0); Total Cells Counted 200; Toxic Granulation Present; Toxic Vacuolation Present
[2021-08-31 06:51] LABS: Potassium 2.7 mmol/L (3.5-5.1)
[2021-08-31] MEDS ORDERED: Potassium Replacement Protocol 1 EACH MISC MISCELLANE PRN (07:01)
[2021-08-31] MEDS: DEXTROSE 5%-0.45% NACL 1,000 ML IV SCH ×4 (07:08→20:58)
[2021-08-31] MEDS: PIPERACILLIN-TAZOBACTAM 3.375 GM in SODIUM CHLORIDE 0.9% 100 ML IVPB SCH ×3 (07:23→19:38)
[2021-08-31] MEDS: POTASSIUM CHLORIDE 10 MEQ in SODIUM CHLORIDE 0.9% 100 ML IVPB SCH ×6 (07:43→12:51)
--- NOTE | 2021-08-31 08:22 | XR ---
EXAMINATION TYPE: XR chest 1V portable DATE OF EXAM: 08/31/2021 COMPARISON: X-ray dated 08/30/2021 HISTORY: Pneumonia, SOB TECHNIQUE: Single frontal view of the chest is obtained. FINDINGS: Heterogeneous patchy opacity in the left lower lung zone with suspected left pleural effusion. The pr eviously seen right upper lung zone opacity is less appreciated today. No right-sided pleural effusio n. No definite pneumothorax. Cardiac size cannot be properly assessed. IMPRESSION: Suspected pneumonia in the left lower lung zone, for clinical correlation and follow-up to resolution.
[2021-08-31] MEDS: PANTOPRAZOLE 40 MG/10 ML VIAL IVP SCH (08:30)
[2021-08-31] MEDS: THIAMINE 100 MG/ML 2 ML VIAL IVP SCH (08:30)
[2021-08-31] MEDS: HEPARIN SODIUM,PORCINE/PF 5,000 UNIT/0.5 ML SYRINGE SQ SCH ×2 (08:30→15:45)
--- NOTE | 2021-08-31 10:37 | P.PN ---
Subjective Progress Note Date: 08/31/21 Principal diagnosis: Acute mental status change, acute metabolic encephalopathy and hypercalcemia 71-year-old male patient, extremely debilitated, emaciated, cachectic, brought into the ED on 08/29/2021 for altered mentation. Apparently, the ex- notified the ED that he was last seen normal approximately a week ago. He was [place] in [place] and the patient was brought into the hospital for further evaluation. The patient has history of alcoholism. Is a history of smoker. He has undergone lung cancer screening including a low-dose CAT scan back in 2020 that came back negative. He has had also several CAT scan of the chest throughout the current health system that showed no evidence 70 malignancy. Nevertheless, during this current admission, he was altered and he had significant metabolic abnormalities and the patient was found to have an acute kidney injury with a creatinine of 2.53 and a BUN of 108. His calcium level was 13.3 with ionized calcium level of 7.4. CPK was 316. Ammonia level was less than 9. AST was 64, ALT was 33, TSH was 5.2 with a free T4 of 1.4. UA was negative. Urine drug screen was negative. Alcohol level was less than 10. CAT scan of the brain showed hydrocephalus/cerebral atrophy without any significant change compared to the earlier exam. No evidence of any acute stroke. No evidence of any acute hemorrhage. CAT scan of the C-spine showed questionable lytic lesion of vertebral bodies the possibility of multiple myeloma. This was a T1 lytic lesion and this was new compared to the earlier CAT scan of 10/10/2020. The chest x-ray was somewhat rotated. There was an area of infiltration in the right upper lobe which could represent potential underlying aspiration pneumonia. The white cell count currently is at 13.5 with a hemoglobin of 14. He has 49% bandemia, 39% neutrophilia, and lymphocytes were 7% with a monocytes of 6%. Potassium level was at 3.6. Troponin was at 0.06. In the ED, the patient was given a total of 2.5 L of IV fluids normal saline and currently the patient is on D5 half-normal saline running at 83 mL an hour. He is started producing urine output. He remains altered. He withdraws to painful stimulation. He cannot carry a conversation. No neck stiffness. No fever. No signs of any trauma this point in time. No biting of the tongue or lip. No skin bruises. No signs of any seizure activity as the patient is not having any jerky body movements. The patient was in the hospital on 01/18/2021 for a fall and a hairline intra-articular fracture of the left acetabulum. At that time, the patient was having significant pain. Patient was seen by orthopedic surgery. No surgery was done and the patient was given a wheelchair to rest for the next 3 months. He was also discharged home nonweightbearing on the left. He denied to go to rehabilitation. Apparently, prior to his discharge, the patient was alert and oriented 3. He was supposed to follow up with orthopedic services within 2 weeks following his discharge. He was drinking alcohol in the order of XB is on a daily basis and the patient was counseled for alcohol cessation prior to his discharge. His discharge medications included Anderson in addition to thiamine and B6 vitamin and he was also given Ultram for pain control and folic acid. Patient was reevaluated today on 08/31/21, remains in the ICU, on room air and O2 saturation is 92%. Patient received 3 L of 0.9 normal saline for his hypercalcemia and now he is on D5 45 at 1 50 mL/h he is hemodynamically stable. Not requiring any pressors. His calcium is down to 10.8 creatinine is down to 1.31. Patient is supposed to have a CT of the chest abdomen and pelvis however we plan to have this done once his creatinine improves further. In the meantime we'll send some markers for underlying malignancy including PSA, CEA, and cancer antigen 199. Based on the presentation, we are most likely dealing with hypercalcemia secondary to underlying malignancy and possibly skeletal metastasis. CBC today is relatively unremarkable his potassium is 2.7 BUN is 61 creatinine 1.31. Patient remains confused, and encephalopathic. Chest x-ray is suggestive of possible aspiration pneumonia. Objective - Vital Signs Vital signs: Vital Signs Temp 99.2 F 08/31/21 08:00 Pulse 112 H 08/31/21 10:00 Resp 20 08/31/21 10:00 BP 122/72 08/31/21 10:00 Pulse Ox 94 L 08/31/21 10:00 Intake & Output 08/30/21 08/31/21 08/31/21 18:59 06:59 18:59 Intake Total 598 1883 900 Output Total 1815 1365 325 Balance -6942 518 575 Weight 64.3 kg 59.9 kg Intake: IV 1650 600 Dextrose 5%-0.45% NaCl 1, 1650 600 000 ml @ 150 mls/hr IV . Q6H40M ONE Rx#:[id number] Intake, IV Titration 598 233 300 Amount Dextrose 5%-0.45% NaCl 1, 498 150 000 ml @ 150 mls/hr IV . Q6H40M ONE Rx#:[id number] Piperacillin-Tazobactam 3 100 .375 gm In Sodium Chloride 0.9% 100 ml @ 25 mls/hr IVPB Q8H [facility] Rx#: [id number] Potassium Chloride 10 meq 300 In Sodium Chloride 0.9% 100 ml @ 105 mls/hr IVPB Q1HR [facility] Rx#:[id number] Sodium Chloride 0.9% 250 83 ml @ 83 mls/hr IV .Q3H1M ONE with Pamidronate 90 mg Rx#:[id number] Output: Urine 1815 1365 325 Other: Voiding Method Indwelling Catheter Indwelling Catheter Indwelling Catheter - Exam Physical Exam: Revealed a 71-year-old white male, chronically ill, cachectic, poor external hygiene. Head: Atraumatic, normocephalic. HEENT:[Neck is supple.] [No neck masses.] [No thyromegaly.] [No JVD.], PERRLA, EOMI, nonicteric, dry mucous membranes Chest: [ Symmetrical chest expansion, crackles at the bases. Cardiac Exam: [Normal S1 and S2, no S3 gallop, no murmur.] Abdomen: [Soft, nontender, no megaly, no rebound, no guarding, normal bowel sounds.] Extremities: [No clubbing, no edema, no cyanosis.] Good pulses bilaterally. Neurological Exam: Confused, opens eyes spontaneously, no facial asymmetry, withdraws to painful stimuli, no purposeful movement. No clonus. Skin: No rashes. Musculoskeletal: No deformities, and no limitation in range of motion. - Labs CBC & Chem 7: 08/31/21 05:40 08/31/21 05:40 Labs: Abnormal Lab Results - Last 24 Hours (Table) 08/30/21 08/30/21 08/30/21 Range/Units 13:09 14:07 14:07 RBC (4.30-5.90) m/uL Hgb (13.0-17.5) gm/dL Hct (39.0-53.0) % MCV (80.0-100.0) fL Neutrophils # (Manual) (1.3-7.7) k/uL Lymphocytes # (Manual) (1.0-4.8) k/uL Metamyelocytes # (Man) (0) k/uL Potassium (3.5-5.1) mmol/L Chloride (98-107) mmol/L BUN (9-20) mg/dL Creatinine (0.66-1.25) mg/dL Glucose (74-99) mg/dL POC Glucose (mg/dL) 140 H (75-99) mg/dL Calcium (8.4-10.2) mg/dL Ionized Calcium Vera 7.4 H* (4.5-5.3) mg/dL Total Protein (PEP) (6.2-8.2) g/dL Vitamin B12 1952.0 H (200.0-944.0) pg/mL PTH Intact 9.1 L (14.0-72.0) pg/mL 08/30/21 08/31/21 08/31/21 Range/Units 14:07 05:40 05:40 RBC 3.64 L (4.30-5.90) m/uL Hgb 11.6 L (13.0-17.5) gm/dL Hct 36.7 L (39.0-53.0) % MCV 101.0 H (80.0-100.0) fL Neutrophils # (Manual) 8.30 H (1.3-7.7) k/uL Lymphocytes # (Manual) 0.38 L (1.0-4.8) k/uL Metamyelocytes # (Man) 0.19 H (0) k/uL Potassium 2.7 L* (3.5-5.1) mmol/L Chloride 116 H (98-107) mmol/L BUN 61 H (9-20) mg/dL Creatinine 1.31 H (0.66-1.25) mg/dL Glucose 131 H (74-99) mg/dL POC Glucose (mg/dL) (75-99) mg/dL Calcium 10.8 H (8.4-10.2) mg/dL Ionized Calcium Vera (4.5-5.3) mg/dL Total Protein (PEP) 4.5 L (6.2-8.2) g/dL Vitamin B12 (200.0-944.0) pg/mL PTH Intact (14.0-72.0) pg/mL Assessment and Plan Assessment: Impression: Acute metabolic encephalopathy secondary to hypercalcemia exact etiology is yet to be determined however it's felt to be most likely to underlying malignancy unless for otherwise. Acute kidney injury, improving with hydration. Acute hypercalcemia, workup is in progress. Primary hyperparathyroidism was basically ruled out. PTH was not elevated. Suspect aspiration pneumonia Lytic lesion involving T1 of the spine. History of underlying COPD. History of hilar adenopathy not appreciated on most recent CT of the chest. History of alcoholism. History of recent left hairline hip fracture Recommendation: Continue present treatment plan. Continue IV fluids at 150 ML per hour. Workup for multiple myeloma is pending Workup for underlying malignancy is pending May have to alter his CT of the chest abdomen and pelvis with contrast however waiting for renal profile to improve. Continue GI and DVT prophylaxis. Continue to follow up along with neurology and oncology on the case. Continue IV Zosyn for presumptive aspiration pneumonia Continue thiamine. Prognosis is obviously guarded CODE STATUS is DO NOT RESUSCITATE We'll continue to follow. Critical care time is over 30 minutes. Time with Patient: Greater than 30
--- NOTE | 2021-08-31 10:47 | P.CNNES ---
History of Present Illness History of Present Illness: Patient is a 71-year-old male who was admitted to the hospital with mental status changes. He was found by his ex- in the [place] barely responsive he he was noted to have feces on him. Patient does have history of EtOH abuse. Patient was noted to be hypotensive with systolic blood pressure in the 90s. He has been maintained on IV fluids. Serum calcium was elevated at 13.3. Serum creatinine was 2.53 and now it is down to 1.3. Patient received a dose of pamidronate and his serum calcium is down to 10.8 today. CK level was 316 No bleeding nausea vomiting or diarrhea noted. No fever no chest pains or cough. Review of Systems As per HPI, other systems negative Past Medical History Past Medical History: No Reported History Additional Past Medical History / Comment(s): ETOH abuse, left hip fracture,, right hilar lymphadenopathy as evident on a CAT scan of the chest that was done on 04/12/2021. Note that the same CAT scan was compared to the earlier CAT scan done in January 2021 and there was improvement in the lymphadenopathy along the right hilum. The patient had also nonspecific focal sclerosing lesion involving the L3 vertebral body. History of Any Multi-Drug Resistant Organisms: None Reported Past Surgical History: Orthopedic Surgery Additional Past Surgical History / Comment(s): Left hip surgery, left testicle. Past Anesthesia/Blood Transfusion Reactions: No Reported Reaction Past Psychological History: No Psychological Hx Reported Smoking Status: Current every day smoker Past Alcohol Use History: Daily Past Drug Use History: None Reported - Past Family History Father History Unknown: Yes Mother History Unknown: Yes Medications and Allergies Home Medications Medication Instructions Recorded Confirmed Type Folic Acid 1 mg PO DAILY 01/18/21 08/30/21 History Pyridoxine HCl (Vitamin B6) 25 mg PO DAILY 01/18/21 08/30/21 History [Pyridoxine HCl] Thiamine HCl [Vitamin B-1] 100 mg PO DAILY 01/18/21 08/30/21 History Allergies Allergy/AdvReac Type Severity Reaction Status Date / Time No Known Allergies Allergy Verified 08/30/21 13:17 Physical Examination - Vital Signs Vital Signs: Vital Signs Temp Pulse Resp BP Pulse Ox 08/31/21 10:00 112 H 20 122/72 94 L 08/31/21 09:00 115 H 21 92 L 08/31/21 08:00 99.2 F 122 H 24 93 L 08/31/21 07:32 111 H 08/31/21 07:18 114 H 08/31/21 07:00 108 H 21 131/69 96 08/31/21 06:00 120 H 20 142/79 95 08/31/21 05:00 121 H 19 135/64 97 08/31/21 04:00 111 H 18 121/76 96 08/31/21 03:14 122 H 08/31/21 03:11 121 H 08/31/21 03:00 112 H 20 123/71 97 08/31/21 02:00 117 H 21 114/68 97 08/31/21 01:00 120 H 18 120/64 96 08/31/21 00:00 97.9 F 110 H 34 H 123/61 97 08/30/21 23:47 114 H 08/30/21 23:40 105 H 33 H 123/61 98 08/30/21 23:39 113 H 08/30/21 23:00 114 H 17 99/74 98 08/30/21 22:00 120 H 28 H 101/67 96 08/30/21 21:00 118 H 27 H 117/61 93 L 08/30/21 20:00 97.6 F 118 H 14 123/71 97 08/30/21 19:11 113 H 08/30/21 19:00 111 H 23 121/70 96 08/30/21 18:58 112 H 08/30/21 18:00 112 H 24 123/62 97 08/30/21 17:00 114 H 27 H 113/65 96 08/30/21 16:00 98.8 F 105 H 17 110/64 96 08/30/21 15:15 117 H 08/30/21 15:05 116 H 08/30/21 15:00 106 H 18 113/77 95 08/30/21 14:00 112 H 18 113/77 95 08/30/21 13:15 98 F 117 H 20 135/70 95 08/30/21 12:38 98.8 F 121 H 133/70 08/30/21 12:00 117 H 25 H 124/64 98 08/30/21 11:30 113 H 26 H 106/63 98 08/30/21 11:00 129 H 22 108/69 96 Intake and Output 08/30/21 08/31/21 08/31/21 22:59 06:59 14:59 Intake Total 1090 1200 900 Output Total 745 950 325 Balance 345 250 575 Intake: IV 450 1200 600 Dextrose 5%-0.45% NaCl 1, 450 1200 600 000 ml @ 150 mls/hr IV . Q6H40M ONE Rx#:[id number] Intake, IV Titration 640 300 Amount Dextrose 5%-0.45% NaCl 1, 482 000 ml @ 150 mls/hr IV . Q6H40M [facility] Rx#:[id number] Piperacillin-Tazobactam 3 75 .375 gm In Sodium Chloride 0.9% 100 ml @ 25 mls/hr IVPB Q8H [facility] Rx#: [id number] Potassium Chloride 10 meq 300 In Sodium Chloride 0.9% 100 ml @ 105 mls/hr IVPB Q1HR [facility] Rx#:[id number] Sodium Chloride 0.9% 250 83 ml @ 83 mls/hr IV .Q3H1M [facility] with Pamidronate 90 mg Rx#:[id number] Output: Urine 745 950 325 Other: Voiding Method Indwelling Catheter Indwelling Catheter Indwelling Catheter Weight 59.9 kg Patient is awake however he goes back to sleep he is not communicating much. Examination of the heart S1 and S2 Examination lungs bilateral breath sounds are heard Examination of the abdomen soft nontender Examination lower extremity shows no evidence of edema CRYPTOLOGIC LINGUIST exam shows patient is lethargic but he has been moving all 4 extremities. He does not communicate much. Results - Laboratory Findings CBC and BMP: 08/31/21 05:40 08/31/21 05:40 Abnormal Lab Findings: Abnormal Labs 08/29/21 08/29/21 08/29/21 23:23 23:23 23:23 WBC 13.5 H RBC Hgb Hct MCV Neutrophils # (Manual) 11.80 H Lymphocytes # (Manual) 0.95 L Metamyelocytes # (Man) 0.14 H PT 14.0 H INR 1.3 H APTT 21.6 L VBG HCO3 Potassium Chloride BUN 108 H* Creatinine 2.53 H Glucose 112 H POC Glucose (mg/dL) Calcium 13.3 H* Ionized Calcium Vera AST 64 H Creatine Kinase CK-MB (CK-2) Troponin I Total Protein 5.6 L Total Protein (PEP) Albumin 2.9 L Vitamin B12 TSH Free T3 pg/mL PTH Intact Urine Protein Urine Glucose (UA) Urine Ketones Amorphous Sediment 08/29/21 08/29/21 08/29/21 23:23 23:23 23:23 WBC RBC Hgb Hct MCV Neutrophils # (Manual) Lymphocytes # (Manual) Metamyelocytes # (Man) PT INR APTT VBG HCO3 Potassium Chloride BUN Creatinine Glucose POC Glucose (mg/dL) Calcium Ionized Calcium Vera AST Creatine Kinase 316 H CK-MB (CK-2) 6.5 H Troponin I 0.064 H* Total Protein Total Protein (PEP) Albumin Vitamin B12 TSH Free T3 pg/mL PTH Intact Urine Protein Urine Glucose (UA) Urine Ketones Amorphous Sediment 08/29/21 08/29/21 08/29/21 23:23 23:23 23:24 WBC RBC Hgb Hct MCV Neutrophils # (Manual) Lymphocytes # (Manual) Metamyelocytes # (Man) PT INR APTT VBG HCO3 22 L Potassium Chloride BUN Creatinine Glucose POC Glucose (mg/dL) Calcium Ionized Calcium Vera AST Creatine Kinase CK-MB (CK-2) Troponin I Total Protein Total Protein (PEP) Albumin Vitamin B12 TSH 5.210 H Free T3 pg/mL 1.8 L PTH Intact Urine Protein Urine Glucose (UA) Urine Ketones Amorphous Sediment 08/30/21 08/30/21 08/30/21 00:08 06:41 13:09 WBC RBC Hgb Hct MCV Neutrophils # (Manual) Lymphocytes # (Manual) Metamyelocytes # (Man) PT INR APTT VBG HCO3 Potassium Chloride BUN Creatinine Glucose POC Glucose (mg/dL) 105 H 140 H Calcium Ionized Calcium Vera AST Creatine Kinase CK-MB (CK-2) Troponin I Total Protein Total Protein (PEP) Albumin Vitamin B12 TSH Free T3 pg/mL PTH Intact Urine Protein Trace H Urine Glucose (UA) 3+ H Urine Ketones 1+ H Amorphous Sediment Occasional H 08/30/21 08/30/21 08/30/21 14:07 14:07 14:07 WBC RBC Hgb Hct MCV Neutrophils # (Manual) Lymphocytes # (Manual) Metamyelocytes # (Man) PT INR APTT VBG HCO3 Potassium Chloride BUN Creatinine Glucose POC Glucose (mg/dL) Calcium Ionized Calcium Vera 7.4 H* AST Creatine Kinase CK-MB (CK-2) Troponin I Total Protein Total Protein (PEP) 4.5 L Albumin Vitamin B12 1952.0 H TSH Free T3 pg/mL PTH Intact 9.1 L Urine Protein Urine Glucose (UA) Urine Ketones Amorphous Sediment 08/31/21 08/31/21 05:40 05:40 WBC RBC 3.64 L Hgb 11.6 L Hct 36.7 L MCV 101.0 H Neutrophils # (Manual) 8.30 H Lymphocytes # (Manual) 0.38 L Metamyelocytes # (Man) 0.19 H PT INR APTT VBG HCO3 Potassium 2.7 L* Chloride 116 H BUN 61 H Creatinine 1.31 H Glucose 131 H POC Glucose (mg/dL) Calcium 10.8 H Ionized Calcium Vera AST Creatine Kinase CK-MB (CK-2) Troponin I Total Protein Total Protein (PEP) Albumin Vitamin B12 TSH Free T3 pg/mL PTH Intact Urine Protein Urine Glucose (UA) Urine Ketones Amorphous Sediment Assessment and Plan Assessment: 1. Acute kidney injury secondary to volume depletion and hypercalcemia, currently improving. UA shows trace protein. Ultrasound of the kidney shows no hydronephrosis. 2. Hypercalcemia associated with intravascular volume depletion. Not sure if patient was taking Tums at home. His PTH is appropriately low. Vitamin D, 25- hydroxy and one 25-hydroxy vitamin D levels will be ordered along with serum and urine immunofixation. Check angiotensin converting enzyme as well rule out sarcoidosis. 3. Hypokalemia currently being replaced 4. Altered mentation associated with hypercalcemia and acute kidney injury, currently slightly improved 5. History of EtOH abuse 6. History of hilar adenopathy, rule out underlying malignancy versus sarcoidosis which will be associated with hypercalcemia as well. Plan: Continue IV fluids Replace potassium aggressively Repeat labs in a.m. Avoid any nephrotoxic agents Await further results for workup of hypercalcemia.
--- NOTE | 2021-08-31 11:22 | P.CONS ---
History of Present Illness - Reason for Consult Consult date: 08/31/21 lytic lesion, hypercalcemia, concern for Malignancy Requesting physician: Leanna Rodrigues - Chief Complaint Mental Status Changes Review of Systems ROS unobtainable: due to mental status Past Medical History Past Medical History: No Reported History Additional Past Medical History / Comment(s): ETOH abuse, left hip fracture,, right hilar lymphadenopathy as evident on a CAT scan of the chest that was done on 04/12/2021. Note that the same CAT scan was compared to the earlier CAT scan done in January 2021 and there was improvement in the lymphadenopathy along the right hilum. The patient had also nonspecific focal sclerosing lesion involving the L3 vertebral body. History of Any Multi-Drug Resistant Organisms: None Reported Past Surgical History: Orthopedic Surgery Additional Past Surgical History / Comment(s): Left hip surgery, left testicle. Past Anesthesia/Blood Transfusion Reactions: No Reported Reaction Past Psychological History: No Psychological Hx Reported Smoking Status: Current every day smoker Past Alcohol Use History: Daily Past Drug Use History: None Reported - Past Family History Father History Unknown: Yes Mother History Unknown: Yes Medications and Allergies Home Medications Medication Instructions Recorded Confirmed Type Folic Acid 1 mg PO DAILY 01/18/21 08/30/21 History Pyridoxine HCl (Vitamin B6) 25 mg PO DAILY 01/18/21 08/30/21 History [Pyridoxine HCl] Thiamine HCl [Vitamin B-1] 100 mg PO DAILY 01/18/21 08/30/21 History Allergies Allergy/AdvReac Type Severity Reaction Status Date / Time No Known Allergies Allergy Verified 08/30/21 13:17 Physical Exam Vitals: Vital Signs Temp Pulse Resp BP Pulse Ox 08/31/21 10:00 112 H 20 122/72 94 L 08/31/21 09:00 115 H 21 92 L 08/31/21 08:00 99.2 F 122 H 24 93 L 08/31/21 07:32 111 H 08/31/21 07:18 114 H 08/31/21 07:00 108 H 21 131/69 96 08/31/21 06:00 120 H 20 142/79 95 08/31/21 05:00 121 H 19 135/64 97 08/31/21 04:00 111 H 18 121/76 96 08/31/21 03:14 122 H 08/31/21 03:11 121 H 08/31/21 03:00 112 H 20 123/71 97 08/31/21 02:00 117 H 21 114/68 97 08/31/21 01:00 120 H 18 120/64 96 08/31/21 00:00 97.9 F 110 H 34 H 123/61 97 08/30/21 23:47 114 H 08/30/21 23:40 105 H 33 H 123/61 98 08/30/21 23:39 113 H 08/30/21 23:00 114 H 17 99/74 98 08/30/21 22:00 120 H 28 H 101/67 96 08/30/21 21:00 118 H 27 H 117/61 93 L 08/30/21 20:00 97.6 F 118 H 14 123/71 97 08/30/21 19:11 113 H 08/30/21 19:00 111 H 23 121/70 96 08/30/21 18:58 112 H 08/30/21 18:00 112 H 24 123/62 97 08/30/21 17:00 114 H 27 H 113/65 96 08/30/21 16:00 98.8 F 105 H 17 110/64 96 08/30/21 15:15 117 H 08/30/21 15:05 116 H 08/30/21 15:00 106 H 18 113/77 95 08/30/21 14:00 112 H 18 113/77 95 08/30/21 13:15 98 F 117 H 20 135/70 95 08/30/21 12:38 98.8 F 121 H 133/70 08/30/21 12:00 117 H 25 H 124/64 98 08/30/21 11:30 113 H 26 H 106/63 98 08/30/21 11:00 129 H 22 108/69 96 Intake and Output 08/30/21 08/31/21 08/31/21 22:59 06:59 14:59 Intake Total 1090 1200 900 Output Total 745 950 325 Balance 345 250 575 Intake: IV 450 1200 600 Dextrose 5%-0.45% NaCl 1, 450 1200 600 000 ml @ 150 mls/hr IV . Q6H40M [facility] Rx#:[id number] Intake, IV Titration 640 300 Amount Dextrose 5%-0.45% NaCl 1, 482 000 ml @ 150 mls/hr IV . Q6H40M [facility] Rx#:[id number] Piperacillin-Tazobactam 3 75 .375 gm In Sodium Chloride 0.9% 100 ml @ 25 mls/hr IVPB Q8H [facility] Rx#: [id number] Potassium Chloride 10 meq 300 In Sodium Chloride 0.9% 100 ml @ 105 mls/hr IVPB Q1HR [facility] Rx#:[id number] Sodium Chloride 0.9% 250 83 ml @ 83 mls/hr IV .Q3H1M [facility] with Pamidronate 90 mg Rx#:[id number] Output: Urine 745 950 325 Other: Voiding Method Indwelling Catheter Indwelling Catheter Indwelling Catheter Weight 59.9 kg Lethargic, Does not full awaken for interview. NAD No increased effort Mild BLE edema, areas of darkened skin No apparent tenderness on abdomen. Results CBC & Chem 7: 08/31/21 05:40 08/31/21 05:40 Labs: Abnormal Lab Results - Last 24 Hours (Table) 08/30/21 08/30/21 08/30/21 Range/Units 13:09 14:07 14:07 RBC (4.30-5.90) m/uL Hgb (13.0-17.5) gm/dL Hct (39.0-53.0) % MCV (80.0-100.0) fL Neutrophils # (Manual) (1.3-7.7) k/uL Lymphocytes # (Manual) (1.0-4.8) k/uL Metamyelocytes # (Man) (0) k/uL Potassium (3.5-5.1) mmol/L Chloride (98-107) mmol/L BUN (9-20) mg/dL Creatinine (0.66-1.25) mg/dL Glucose (74-99) mg/dL POC Glucose (mg/dL) 140 H (75-99) mg/dL Calcium (8.4-10.2) mg/dL Ionized Calcium Vera 7.4 H* (4.5-5.3) mg/dL Total Protein (PEP) (6.2-8.2) g/dL Vitamin B12 1952.0 H (200.0-944.0) pg/mL PTH Intact 9.1 L (14.0-72.0) pg/mL 03/08/31/21 08/31/21 Range/Units 14:07 05:40 05:40 RBC 3.64 L (4.30-5.90) m/uL Hgb 11.6 L (13.0-17.5) gm/dL Hct 36.7 L (39.0-53.0) % MCV 101.0 H (80.0-100.0) fL Neutrophils # (Manual) 8.30 H (1.3-7.7) k/uL Lymphocytes # (Manual) 0.38 L (1.0-4.8) k/uL Metamyelocytes # (Man) 0.19 H (0) k/uL Potassium 2.7 L* (3.5-5.1) mmol/L Chloride 116 H (98-107) mmol/L BUN 61 H (9-20) mg/dL Creatinine 1.31 H (0.66-1.25) mg/dL Glucose 131 H (74-99) mg/dL POC Glucose (mg/dL) (75-99) mg/dL Calcium 10.8 H (8.4-10.2) mg/dL Ionized Calcium Vera (4.5-5.3) mg/dL Total Protein (PEP) 4.5 L (6.2-8.2) g/dL Vitamin B12 (200.0-944.0) pg/mL PTH Intact (14.0-72.0) pg/mL Assessment and Plan (1) Hypercalcemia Narrative/Plan: PTH Low TSH, Mag, Vitamin D pending Concern of hypercalcemia of malignancy: Myeloma panel pending He has continued on hydration with minimal improvement, recommend addition of calcitonin and bphosphonate (could split into two doses for less stress to kidneys) Current Visit: Yes Status: Acute Code(s): E83.52 - HYPERCALCEMIA SNOMED Code(s): 17389789 (2) Macrocytic anemia Narrative/Plan: Further work-up is pending Current Visit: Yes Status: Acute Code(s): D53.9 - NUTRITIONAL ANEMIA, UNSPECIFIED SNOMED Code(s): 64613690 (3) Lytic bone lesions on xray Narrative/Plan: Will further evaluate with bone scan and await myeloma panel and PSA level Current Visit: Yes Status: Acute Code(s): M89.9 - DISORDER OF BONE, UNSPECIFIED SNOMED Code(s): 363255137 Plan: Dr. Tam: I have performed the complete history and physical and developed the above impression and plan, agree with dictation, dictated as a scribe.
--- NOTE | 2021-08-31 12:29 | P.PN ---
Subjective Patient was admitted to hospital Hospital after he was found unresponsive. Patient is admitted to the hospital after he was found unresponsive at home. Patient is believed to have aspiration pneumonia for which patient is on Zosyn. Patient is still not responsive patient does have significant metabolic encephalopathy may be consistent with a is being treated for aspiration pneumonia this time. Patient is also hypocalcemic most probably secondary to dehydration, patient is undergoing hypercalcemia workup. She also has hilar lymphadenopathy because of which patient is undergoing workup for sarcoidosis. REVIEW OF SYSTEMS: Unable to obtain due to his clinical condition PHYSICAL EXAMINATION: GENERAL: The patient is barely responsive HEENT: Pupils are round and equally reacting to light. EOMI. No scleral icterus. No conjunctival pallor. Normocephalic, atraumatic. No pharyngeal erythema. No thyromegaly. CARDIOVASCULAR: S1 and S2 present. No murmurs, rubs, or gallops. PULMONARY: Diffuse bilateral rhonchi ABDOMEN: Soft, nontender, nondistended, normoactive bowel sounds. No palpable organomegaly. MUSCULOSKELETAL: No joint swelling or deformity. EXTREMITIES: No cyanosis, clubbing, or pedal edema. NEUROLOGICAL: Unable to evaluate SKIN: No rashes. Assessment and plan -Metabolic and toxic encephalopathy: Secondary to hypercalcemia, severe dehydration, pneumonia. Patient is on anti-medics for aspiration pneumonia -Aspiration pneumonia -Hypercalcemia secondary to. And there is a continuation of calcium carbonate the patient is taking as well. Patient will continued on IV fluids and monitor calcium. -Hypokalemia secondary to natriuresis and up last will be replaced -Acute renal failure secondary to dehydration next and-COPD without any acute exacerbation, improving with IV fluids -Hilar lymphadenopathy: Patient is undergoing workup for sarcoidosis further management as per pulmonology. DVT prophylaxis: Subcutaneous heparin Objective - Vital Signs Vital signs: Vital Signs Temp 97.8 F 08/31/21 12:00 Pulse 120 H 08/31/21 12:00 Resp 20 08/31/21 12:00 BP 125/55 08/31/21 12:00 Pulse Ox 92 L 08/31/21 12:00 Intake & Output 08/30/21 08/31/21 08/31/21 18:59 06:59 18:59 Intake Total 598 1883 1400 Output Total 1815 1365 420 Balance -1217 518 980 Weight 64.3 kg 59.9 kg Intake: IV 1650 900 Dextrose 5%-0.45% NaCl 1, 1650 900 000 ml @ 150 mls/hr IV . Q6H40M [facility] Rx#:[id number] Intake, IV Titration 598 233 500 Amount Dextrose 5%-0.45% NaCl 1, 498 150 000 ml @ 150 mls/hr IV . Q6H40M [facility] Rx#:[id number] Piperacillin-Tazobactam 3 100 .375 gm In Sodium Chloride 0.9% 100 ml @ 25 mls/hr IVPB Q8H [facility] Rx#: [id number] Potassium Chloride 10 meq 500 In Sodium Chloride 0.9% 100 ml @ 105 mls/hr IVPB Q1HR [facility] Rx#:[id number] Sodium Chloride 0.9% 250 83 ml @ 83 mls/hr IV .Q3H1M [facility] with Pamidronate 90 mg Rx#:[id number] Output: Urine 1815 1365 420 Other: Voiding Method Indwelling Catheter Indwelling Catheter Indwelling Catheter - Labs CBC & Chem 7: 08/31/21 05:40 08/31/21 05:40 Labs: Abnormal Lab Results - Last 24 Hours (Table) 08/30/21 08/30/21 08/30/21 Range/Units 13:09 14:07 14:07 RBC (4.30-5.90) m/uL Hgb (13.0-17.5) gm/dL Hct (39.0-53.0) % MCV (80.0-100.0) fL Neutrophils # (Manual) (1.3-7.7) k/uL Lymphocytes # (Manual) (1.0-4.8) k/uL Metamyelocytes # (Man) (0) k/uL Potassium (3.5-5.1) mmol/L Chloride (98-107) mmol/L BUN (9-20) mg/dL Creatinine (0.66-1.25) mg/dL Glucose (74-99) mg/dL POC Glucose (mg/dL) 140 H (75-99) mg/dL Calcium (8.4-10.2) mg/dL Ionized Calcium Vera 7.4 H* (4.5-5.3) mg/dL Total Protein (PEP) (6.2-8.2) g/dL Vitamin B12 1952.0 H (200.0-944.0) pg/mL PTH Intact 9.1 L (14.0-72.0) pg/mL 08/30/21 08/31/21 08/31/21 Range/Units 14:07 05:40 05:40 RBC 3.64 L (4.30-5.90) m/uL Hgb 11.6 L (13.0-17.5) gm/dL Hct 36.7 L (39.0-53.0) % MCV 101.0 H (80.0-100.0) fL Neutrophils # (Manual) 8.30 H (1.3-7.7) k/uL Lymphocytes # (Manual) 0.38 L (1.0-4.8) k/uL Metamyelocytes # (Man) 0.19 H (0) k/uL Potassium 2.7 L* (3.5-5.1) mmol/L Chloride 116 H (98-107) mmol/L BUN 61 H (9-20) mg/dL Creatinine 1.31 H (0.66-1.25) mg/dL Glucose 131 H (74-99) mg/dL POC Glucose (mg/dL) (75-99) mg/dL Calcium 10.8 H (8.4-10.2) mg/dL Ionized Calcium Vera (4.5-5.3) mg/dL Total Protein (PEP) 4.5 L (6.2-8.2) g/dL Vitamin B12 (200.0-944.0) pg/mL PTH Intact (14.0-72.0) pg/mL
[2021-08-31 15:24] LABS: LDH 1764 U/L (313-618); Magnesium 2.3 mg/dL (1.6-2.3)
[2021-08-31 15:34] LABS: Carcinoembryonic Antigen 3.2 ng/mL (0.0-4.9)
[2021-08-31] MEDS: POTASSIUM CHLORIDE 10 MEQ in WATER FOR INJECTION 1 100ML.BAG IVPB SCH ×4 (18:13→22:21)
[2021-08-31 18:38] LABS: Immunoglobulin M 30.2 mg/dL (40.0-280.0)
[2021-08-31 21:18] LABS: Cancer Antigen 19-9 33.6 U/mL (0.0-34.9)
[2021-09-01] MEDS: IPRATROPIUM-ALBUTEROL 3 ML NEB INHALATION SCH ×7 (00:11→23:39)
[2021-09-01] MEDS: HEPARIN SODIUM,PORCINE/PF 5,000 UNIT/0.5 ML SYRINGE SQ SCH ×3 (00:26→15:25)
[2021-09-01] MEDS: PIPERACILLIN-TAZOBACTAM 3.375 GM in SODIUM CHLORIDE 0.9% 100 ML IVPB SCH ×3 (03:31→20:11)
[2021-09-01] MEDS: DEXTROSE 5%-0.45% NACL 1,000 ML IV SCH ×3 (03:33→16:12)
[2021-09-01 07:07] LABS: Basophils % (A) 0 %; Eosinophils % (A) 0 %; HCT 34.1 % (39.0-53.0); HGB 10.8 gm/dL (13.0-17.5); Hypochromasia Slight; Lymphocytes # (A) 0.6 k/uL (1.0-4.8); Lymphocytes % (A) 6 %; MCHC 31.6 g/dL (31.0-37.0); MCV 101.3 fL (80.0-100.0); Macrocytosis Slight; Mean Platelet Volume 9.8; Monocytes # (A) 0.5 k/uL (0-1.0); Monocytes % (A) 5 %; Neutrophils # (A) 9.5 k/uL (1.3-7.7); Neutrophils % (A) 88 %; Platelet Count 128 k/uL (150-450); RBC 3.37 m/uL (4.30-5.90); RDW 14.1 % (11.5-15.5); WBC 10.8 k/uL (3.8-10.6)
[2021-09-01 07:19] LABS: ALT 59 U/L (4-49); African American GFR (CKD) >90 (>60 ml/min/1.73 sqM); Albumin 1.8 g/dL (3.5-5.0); Anion Gap 0 mmol/L; Blood Urea Nitrogen 29 mg/dL (9-20); Carbon Dioxide 25 mmol/L (22-30); Chloride 118 mmol/L (98-107); Glucose 110 mg/dL (74-99); Non-African American GFR(CKD) 83 (>60 ml/min/1.73 sqM); Sodium 143 mmol/L (137-145); Total Bilirubin 0.8 mg/dL (0.2-1.3); Total Protein 4.2 g/dL (6.3-8.2)
[2021-09-01 07:24] LABS: AST 137 U/L (17-59); Alkaline Phosphatase 60 U/L (38-126); Potassium 3.3 mmol/L (3.5-5.1)
[2021-09-01] MEDS: POTASSIUM CHLORIDE 10 MEQ in SODIUM CHLORIDE 0.9% 100 ML IVPB SCH ×5 (08:00→22:25)
[2021-09-01] MEDS: THIAMINE 100 MG/ML 2 ML VIAL IVP SCH (08:04)
[2021-09-01] MEDS: PANTOPRAZOLE 40 MG/10 ML VIAL IVP SCH (08:05)
[2021-09-01 09:33] LABS: % Iron Saturation 7.27 (15.00-50.00); Iron 12 ug/dL (65-175); Total Iron Binding Capacity 160 ug/dL (228-460); Vitamin B12 >2000.0 pg/mL (200.0-944.0)
[2021-09-01] MEDS ORDERED: FUROSEMIDE 10 MG/ML 4 ML VIAL IV STA (09:53)
--- NOTE | 2021-09-01 10:43 | XR ---
EXAMINATION TYPE: XR chest 1V portable DATE OF EXAM: 09/01/2021 CLINICAL HISTORY: Worsening breathing and cough. TECHNIQUE: Single AP portable upright view of the chest is obtained. COMPARISON: Chest x-ray from one day earlier and older studies FINDINGS: Persistent small to moderate size left greater than right pleural effusions and associated bibasilar opacities. Background chronic emphysematous and parenchymal changes with increased reticul onodular opacities bilaterally. Osseous structures are demineralized. Degenerative change of both clement ulders and spine is present. Old fractures of the posterior left fourth and fifth ribs redemonstrated . Cardiac silhouette size is stable and upper limits of normal. IMPRESSION: Continued worsening small to moderate-sized left greater than right bilateral pleural eff usions. Increasing diffuse reticulonodular edema and/or infiltrates bilaterally.
--- NOTE | 2021-09-01 11:16 | P.PN ---
Subjective Progress Note Date: 09/01/21 Principal diagnosis: Acute mental status change, acute metabolic encephalopathy and hypercalcemia 71-year-old male patient, extremely debilitated, emaciated, cachectic, brought into the ED on 08/29/2021 for altered mentation. Apparently, the ex- notified the ED that he was last seen normal approximately a week ago. He was [place] and the patient was brought into the hospital for further evaluation. The patient has history of alcoholism. Is a history of smoker. He has undergone lung cancer screening including a low-dose CAT scan back in 2020 that came back negative. He has had also several CAT scan of the chest throughout the current health system that showed no evidence 70 malignancy. Nevertheless, during this current admission, he was altered and he had significant metabolic abnormalities and the patient was found to have an acute kidney injury with a creatinine of 2.53 and a BUN of 108. His calcium level was 13.3 with ionized calcium level of 7.4. CPK was 316. Ammonia level was less than 9. AST was 64, ALT was 33, TSH was 5.2 with a free T4 of 1.4. UA was negative. Urine drug screen was negative. Alcohol level was less than 10. CAT scan of the brain showed hydrocephalus/cerebral atrophy without any significant change compared to the earlier exam. No evidence of any acute stroke. No evidence of any acute hemorrhage. CAT scan of the C-spine showed questionable lytic lesion of vertebral bodies the possibility of multiple myeloma. This was a T1 lytic lesion and this was new compared to the earlier CAT scan of 10/10/2020. The chest x-ray was somewhat rotated. There was an area of infiltration in the right upper lobe which could represent potential underlying aspiration pneumonia. The white cell count currently is at 13.5 with a hemoglobin of 14. He has 49% bandemia, 39% neutrophilia, and lymphocytes were 7% with a monocytes of 6%. Potassium level was at 3.6. Troponin was at 0.06. In the ED, the patient was given a total of 2.5 L of IV fluids normal saline and currently the patient is on D5 half-normal saline running at 83 mL an hour. He is started producing urine output. He remains altered. He withdraws to painful stimulation. He cannot carry a conversation. No neck stiffness. No fever. No signs of any trauma this point in time. No biting of the tongue or lip. No skin bruises. No signs of any seizure activity as the patient is not having any jerky body movements. The patient was in the hospital on 01/18/2021 for a fall and a hairline intra-articular fracture of the left acetabulum. At that time, the patient was having significant pain. Patient was seen by orthopedic surgery. No surgery was done and the patient was given a wheelchair to rest for the next 3 months. He was also discharged home nonweightbearing on the left. He denied to go to rehabilitation. Apparently, prior to his discharge, the patient was alert and oriented 3. He was supposed to follow up with orthopedic services within 2 weeks following his discharge. He was drinking alcohol in the order of XB is on a daily basis and the patient was counseled for alcohol cessation prior to his discharge. His discharge medications included [place] in addition to thiamine and B6 vitamin and he was also given Ultram for pain control and folic acid. Patient was reevaluated today on 08/31/21, remains in the ICU, on room air and O2 saturation is 92%. Patient received 3 L of 0.9 normal saline for his hypercalcemia and now he is on D5 45 at 1 50 mL/h he is hemodynamically stable. Not requiring any pressors. His calcium is down to 10.8 creatinine is down to 1.31. Patient is supposed to have a CT of the chest abdomen and pelvis however we plan to have this done once his creatinine improves further. In the meantime we'll send some markers for underlying malignancy including PSA, CEA, and cancer antigen 199. Based on the presentation, we are most likely dealing with hypercalcemia secondary to underlying malignancy and possibly skeletal metastasis. CBC today is relatively unremarkable his potassium is 2.7 BUN is 61 creatinine 1.31. Patient remains confused, and encephalopathic. Chest x-ray is suggestive of possible aspiration pneumonia. Patient was reevaluated today on 09/01/21, basically about the same. Remains on few liters nasal cannula, IV fluid is cut down to 75 mL per hour. Serum calcium today is 10.0. However his mentation is about the same and the patient remains on antibiotics for presumptive aspiration pneumonia. Renal functioning is significantly improved, his BUN today is 29 creatinine is 0.93. Patient is having a bone scan today. And he may eventually need a CT of the chest abdomen and pelvis. Serum protein electrophoresis is pending. Objective - Vital Signs Vital signs: Vital Signs Temp 98.8 F 09/01/21 08:00 Pulse 115 H 09/01/21 10:00 Resp 32 H 09/01/21 10:00 BP 142/78 09/01/21 10:00 Pulse Ox 95 09/01/21 10:00 Intake & Output 08/31/21 09/01/21 09/01/21 18:59 06:59 18:59 Intake Total 2500 1800 825 Output Total 960 760 190 Balance 1540 1040 635 Weight 59.9 kg 65.6 kg Intake: IV 1800 1800 525 Dextrose 5%-0.45% NaCl 1, 1500 000 ml @ 150 mls/hr IV . Q6H40M [facility] Rx#:[id number] Dextrose 5%-0.45% NaCl 1, 300 1800 525 000 ml @ 150 mls/hr IV . Q6H40M [facility] Rx#:[id number] Intake, IV Titration 700 300 Amount Potassium Chloride 10 meq 300 In Sodium Chloride 0.9% 100 ml @ 100 mls/hr IVPB Q1H [facility] Rx#:[id number] Potassium Chloride 10 meq 600 In Sodium Chloride 0.9% 100 ml @ 105 mls/hr IVPB Q1HR [facility] Rx#:[id number] Potassium Chloride 10 meq 100 In Water For Injection 1 100ml.bag @ 100 mls/hr IVPB Q1HR [facility] Rx#: [id number] Output: Urine 960 760 190 Other: Voiding Method Indwelling Catheter Indwelling Catheter Indwelling Catheter - Exam Physical Exam: Revealed a 71-year-old white male, in no distress, looks chronically ill. Head: Atraumatic, normocephalic. HEENT:[Neck is supple.] [No neck masses.] [No thyromegaly.] [No JVD.], PERRLA, EOMI, nonicteric, dry mucous membranes Chest: [ Symmetrical chest expansion, crackles at the bases. Cardiac Exam: [Normal S1 and S2, no S3 gallop, no murmur.] Abdomen: [Soft, nontender, no megaly, no rebound, no guarding, normal bowel sounds.] Extremities: [No clubbing, no edema, no cyanosis.] Good pulses bilaterally. Neurological Exam: Confused, opens eyes spontaneously, does not follow any instr uctions Skin: No rashes. Musculoskeletal: No deformities. Psychiatric: Could not be assessed - Labs CBC & Chem 7: 09/01/21 06:40 09/01/21 06:40 Labs: Abnormal Lab Results - Last 24 Hours (Table) 08/31/21 08/31/21 08/31/21 Range/Units 08:24 14:44 14:44 WBC (3.8-10.6) k/uL RBC (4.30-5.90) m/uL Hgb (13.0-17.5) gm/dL Hct (39.0-53.0) % MCV (80.0-100.0) fL Plt Count (150-450) k/uL Neutrophils # (1.3-7.7) k/uL Lymphocytes # (1.0-4.8) k/uL Potassium (3.5-5.1) mmol/L Chloride (98-107) mmol/L BUN (9-20) mg/dL Glucose (74-99) mg/dL Iron 12 L (65-175) ug/dL TIBC 160 L (228-460) ug/dL % Saturation 7.27 L (15.00-50.00) Transferrin 114.0 L (204.0-354.0) mg/dL Ferritin 1547.0 H (22.0-322.0) ng/mL AST (17-59) U/L ALT (4-49) U/L Lactate Dehydrogenase 1764 H (313-618) U/L Total Protein (6.3-8.2) g/dL Albumin (3.5-5.0) g/dL Vitamin B12 >2000.0 H (200.0-944.0) pg/mL Vitamin D 25-Hydroxy 21.9 L (30.0-100.0) ng/mL IgG 492.0 L (700.0-1600.0) mg/dL IgM 30.2 L (40.0-280.0) mg/dL 08/31/21 09/01/21 09/01/21 Range/Units 14:44 06:40 06:40 WBC 10.8 H (3.8-10.6) k/uL RBC 3.37 L (4.30-5.90) m/uL Hgb 10.8 L (13.0-17.5) gm/dL Hct 34.1 L (39.0-53.0) % MCV 101.3 H (80.0-100.0) fL Plt Count 128 L (150-450) k/uL Neutrophils # 9.5 H (1.3-7.7) k/uL Lymphocytes # 0.6 L (1.0-4.8) k/uL Potassium 3.2 L 3.3 L (3.5-5.1) mmol/L Chloride 118 H (98-107) mmol/L BUN 29 H (9-20) mg/dL Glucose 110 H (74-99) mg/dL Iron (65-175) ug/dL TIBC (228-460) ug/dL % Saturation (15.00-50.00) Transferrin (204.0-354.0) mg/dL Ferritin (22.0-322.0) ng/mL AST 137 H (17-59) U/L ALT 59 H (4-49) U/L Lactate Dehydrogenase (313-618) U/L Total Protein 4.2 L (6.3-8.2) g/dL Albumin 1.8 L (3.5-5.0) g/dL Vitamin B12 (200.0-944.0) pg/mL Vitamin D 25-Hydroxy (30.0-100.0) ng/mL IgG (700.0-1600.0) mg/dL IgM (40.0-280.0) mg/dL Assessment and Plan Assessment: Impression: Acute metabolic encephalopathy secondary to hypercalcemia exact etiology is yet to be determined however it's felt to be most likely to underlying malignancy unless for otherwise. Acute kidney injury, resolved with hydration. Acute hypercalcemia, workup is in progress. Ursa to be hypercalcemia of malignancy unless for otherwise. Suspect aspiration pneumonia, continue Zosyn. Lytic lesion involving T1 of the spine. History of underlying COPD. History of hilar adenopathy not appreciated on most recent CT of the chest. History of alcoholism. History of recent left hairline hip fracture Recommendation: Continue present treatment plan. Continue IV fluids at 75 mL per hour. Workup for multiple myeloma is pending Workup for underlying malignancy is pending, we'll consider CT of chest abdomen and pelvis Continue GI and DVT prophylaxis. Continue IV Zosyn for presumptive aspiration pneumonia Prognosis is obviously guarded CODE STATUS is DO NOT RESUSCITATE We'll continue to follow. Time with Patient: Less than 30
--- NOTE | 2021-09-01 13:28 | P.PN ---
Subjective Patient was admitted to hospital Hospital after he was found unresponsive. Patient is admitted to the hospital after he was found unresponsive at home. Patient is believed to have aspiration pneumonia for which patient is on Zosyn. Patient is still not responsive patient does have significant metabolic encephalopathy may be consistent with a is being treated for aspiration pneumonia this time. Patient is also hypocalcemic most probably secondary to dehydration, patient is undergoing hypercalcemia workup. She also has hilar lymphadenopathy because of which patient is undergoing workup for sarcoidosis. 09/01/2021 Patient's severe metabolic encephalopathy is improving at this time patient has lactic lesion in the spine because of which there is a significant suspicion of the malignancy although primary is not clear patient doesn't have any highlighted did not lymphadenopathy and repeat CT oncology is following the patient as well. Patient can use to have hypercalcemia. Patient had volume overload and pulmonary edema because of IV fluids because of which she is also receiving Lasix. Patient is receiving both Lasix and IV fluids because of his hypercalcemia. She remains hypokalemic because of IV fluids now he received IV Lasix potassium will be replaced. Patient is more awake today. He is sitting he does understand and following commands. Patient's renal failure although improved significantly. REVIEW OF SYSTEMS: Unable to obtain due to his clinical condition PHYSICAL EXAMINATION: GENERAL: The patient is barely responsive HEENT: Pupils are round and equally reacting to light. EOMI. No scleral icterus. No conjunctival pallor. Normocephalic, atraumatic. No pharyngeal erythema. No thyromegaly. CARDIOVASCULAR: S1 and S2 present. No murmurs, rubs, or gallops. PULMONARY: Diffuse bilateral rhonchi ABDOMEN: Soft, nontender, nondistended, normoactive bowel sounds. No palpable organomegaly. MUSCULOSKELETAL: No joint swelling or deformity. EXTREMITIES: No cyanosis, clubbing, or pedal edema. NEUROLOGICAL: Unable to evaluate SKIN: No rashes. Assessment and plan -Metabolic and toxic encephalopathy: Secondary to hypercalcemia, severe dehydration, pneumonia. Patient is on antibiotics for aspiration pneumonia -Aspiration pneumonia -Hypercalcemia secondary to dehydration And there is a continuation of calcium carbonate the patient is taking as well. Sleeping suspicion of malignancy because of the lytic lesion in the spine although there is no hilar lymphadenopathy and repeat CT today. Patient's serum calcium came down to 10 and patient is receiving IV fluids at this time patient is on also on IV Lasix. Patient will continued on IV fluids and monitor calcium. -Hypokalemia secondary to natriuresis and up last will be replaced Some pulmonary edema secondary to IV fluids patient is receiving Lasix at this time. -Acute renal failure secondary to dehydration -COPD without any acute exacerbation, improving with IV fluids -Hilar lymphadenopathy: Not Seen on the recent CT. DVT prophylaxis: Subcutaneous heparin Objective - Vital Signs Vital signs: Vital Signs Temp 98.8 F 09/01/21 08:00 Pulse 112 H 09/01/21 11:00 Resp 33 H 09/01/21 11:00 BP 143/86 09/01/21 11:00 Pulse Ox 95 09/01/21 11:00 Intake & Output 08/31/21 09/01/21 09/01/21 18:59 06:59 18:59 Intake Total 2500 1800 900 Output Total 960 760 940 Balance 1540 1040 -40 Weight 59.9 kg 65.6 kg Intake: IV 1800 1800 600 Dextrose 5%-0.45% NaCl 1, 1500 000 ml @ 150 mls/hr IV . Q6H40M [facility] Rx#:[id number] Dextrose 5%-0.45% NaCl 1, 300 1800 600 000 ml @ 75 mls/hr IV . [id number] [facility] Rx#:[id number] Intake, IV Titration 700 300 Amount Potassium Chloride 10 meq 300 In Sodium Chloride 0.9% 100 ml @ 100 mls/hr IVPB Q1H [facility] Rx#:[id number] Potassium Chloride 10 meq 600 In Sodium Chloride 0.9% 100 ml @ 105 mls/hr IVPB Q1HR [facility] Rx#:[id number] Potassium Chloride 10 meq 100 In Water For Injection 1 100ml.bag @ 100 mls/hr IVPB Q1HR [facility] Rx#: [id number] Output: Urine 960 760 940 Other: Voiding Method Indwelling Catheter Indwelling Catheter Indwelling Catheter - Labs CBC & Chem 7: 09/01/21 06:40 09/01/21 06:40 Labs: Abnormal Lab Results - Last 24 Hours (Table) 08/31/21 08/31/21 08/31/21 Range/Units 08:24 14:44 14:44 WBC (3.8-10.6) k/uL RBC (4.30-5.90) m/uL Hgb (13.0-17.5) gm/dL Hct (39.0-53.0) % MCV (80.0-100.0) fL Plt Count (150-450) k/uL Neutrophils # (1.3-7.7) k/uL Lymphocytes # (1.0-4.8) k/uL Potassium (3.5-5.1) mmol/L Chloride (98-107) mmol/L BUN (9-20) mg/dL Glucose (74-99) mg/dL Iron 12 L (65-175) ug/dL TIBC 160 L (228-460) ug/dL % Saturation 7.27 L (15.00-50.00) Transferrin 114.0 L (204.0-354.0) mg/dL Ferritin 1547.0 H (22.0-322.0) ng/mL AST (17-59) U/L ALT (4-49) U/L Lactate Dehydrogenase 1764 H (313-618) U/L Total Protein (6.3-8.2) g/dL Albumin (3.5-5.0) g/dL Vitamin B12 >2000.0 H (200.0-944.0) pg/mL Vitamin D 25-Hydroxy 21.9 L (30.0-100.0) ng/mL IgG 492.0 L (700.0-1600.0) mg/dL IgM 30.2 L (40.0-280.0) mg/dL 08/31/21 09/01/21 09/01/21 Range/Units 14:44 06:40 06:40 WBC 10.8 H (3.8-10.6) k/uL RBC 3.37 L (4.30-5.90) m/uL Hgb 10.8 L (13.0-17.5) gm/dL Hct 34.1 L (39.0-53.0) % MCV 101.3 H (80.0-100.0) fL Plt Count 128 L (150-450) k/uL Neutrophils # 9.5 H (1.3-7.7) k/uL Lymphocytes # 0.6 L (1.0-4.8) k/uL Potassium 3.2 L 3.3 L (3.5-5.1) mmol/L Chloride 118 H (98-107) mmol/L BUN 29 H (9-20) mg/dL Glucose 110 H (74-99) mg/dL Iron (65-175) ug/dL TIBC (228-460) ug/dL % Saturation (15.00-50.00) Transferrin (204.0-354.0) mg/dL Ferritin (22.0-322.0) ng/mL AST 137 H (17-59) U/L ALT 59 H (4-49) U/L Lactate Dehydrogenase (313-618) U/L Total Protein 4.2 L (6.3-8.2) g/dL Albumin 1.8 L (3.5-5.0) g/dL Vitamin B12 (200.0-944.0) pg/mL Vitamin D 25-Hydroxy (30.0-100.0) ng/mL IgG (700.0-1600.0) mg/dL IgM (40.0-280.0) mg/dL
[2021-09-01 15:18] LABS: Albumin 2.37 g/dL (3.80-4.90); Gamma Globulin 0.43 g/dL (0.70-1.50)
[2021-09-01] MEDS: POTASSIUM CHLORIDE 20 MEQ in WATER FOR INJECTION 1 100ML.BAG IVPB SCH ×2 (15:18→17:18)
--- NOTE | 2021-09-01 16:05 | EEG ---
ELECTROENCEPHALOGRAM REPORT DATE OF SERVICE: 09/01/2021 PREAMBLE: This is a 71-year-old male with altered mental status. EEG FINDINGS: This is a 21-channel digital EEG recorded with video component, utilizing 10/20 international system with referential and bipolar montages. Background consists of poorly developed and regulated, mixed frequencies of diffuse slowing in theta and delta range in bihemispheric region. Background does not seem to be reactive to eye opening and closing. Photic stimulation was not performed. Different stages of sleep were not seen. No focal or generalized epileptiform activity was seen. Some myogenic activity was seen frequently during the study. IMPRESSION: This is an abnormal EEG due to background slowing of moderate to severe degree. This is suggestive of generalized cerebral dysfunction as can be seen with toxic metabolic encephalopathy or due to diffuse structural brain abnormality. No epileptiform activity was seen. [id number] / TIFFN: [id number] /
[2021-09-02] MEDS: POTASSIUM CHLORIDE 10 MEQ in SODIUM CHLORIDE 0.9% 100 ML IVPB SCH ×2
[2021-09-02] MEDS: HEPARIN SODIUM,PORCINE/PF 5,000 UNIT/0.5 ML SYRINGE SQ SCH ×4 (00:01→23:07)
[2021-09-02 03:00] LABS: Basophils % (A) 0 %; Eosinophils # (A) 0.1 k/uL (0-0.7); Eosinophils % (A) 1 %; HCT 33.8 % (39.0-53.0); HGB 10.7 gm/dL (13.0-17.5); Lymphocytes # (A) 0.7 k/uL (1.0-4.8); Lymphocytes % (A) 7 %; MCH 31.1 pg (25.0-35.0); MCHC 31.6 g/dL (31.0-37.0); MCV 98.5 fL (80.0-100.0); Mean Platelet Volume 10.7; Monocytes # (A) 0.6 k/uL (0-1.0); Monocytes % (A) 6 %; Neutrophils # (A) 9.3 k/uL (1.3-7.7); Neutrophils % (A) 86 %; Platelet Count 147 k/uL (150-450); RBC 3.43 m/uL (4.30-5.90); RDW 14.4 % (11.5-15.5); WBC 10.8 k/uL (3.8-10.6)
[2021-09-02 03:15] LABS: African American GFR (CKD) >90 (>60 ml/min/1.73 sqM); Anion Gap 3 mmol/L; Blood Urea Nitrogen 22 mg/dL (9-20); Calcium 9.3 mg/dL (8.4-10.2); Carbon Dioxide 27 mmol/L (22-30); Chloride 114 mmol/L (98-107); Glucose 98 mg/dL (74-99); Non-African American GFR(CKD) 83 (>60 ml/min/1.73 sqM); Potassium 3.5 mmol/L (3.5-5.1); Sodium 144 mmol/L (137-145)
[2021-09-02] MEDS: IPRATROPIUM-ALBUTEROL 3 ML NEB INHALATION SCH ×6 (03:18→23:24)
[2021-09-02 03:24] LABS: Ionized Calcium 6.3 mg/dL (4.5-5.3)
[2021-09-02] MEDS: PIPERACILLIN-TAZOBACTAM 3.375 GM in SODIUM CHLORIDE 0.9% 100 ML IVPB SCH ×3 (03:43→20:27)
[2021-09-02] MEDS: DEXTROSE 5%-0.45% NACL 1,000 ML IV SCH ×2 (03:44→18:25)
[2021-09-02] MEDS: THIAMINE 100 MG/ML 2 ML VIAL IVP SCH (08:18)
[2021-09-02] MEDS: PANTOPRAZOLE 40 MG/10 ML VIAL IVP SCH (08:18)
--- NOTE | 2021-09-02 10:50 | P.PN ---
Subjective Progress Note Date: 09/02/21 Principal diagnosis: Acute mental status change, acute metabolic encephalopathy and hypercalcemia 71-year-old male patient, extremely debilitated, emaciated, cachectic, brought into the ED on 08/29/2021 for altered mentation. Apparently, the ex- notified the ED that he was last seen normal approximately a week ago. He was [place] and the patient was brought into the hospital for further evaluation. The patient has history of alcoholism. Is a history of smoker. He has undergone lung cancer screening including a low-dose CAT scan back in 2020 that came back negative. He has had also several CAT scan of the chest throughout the current health system that showed no evidence 70 malignancy. Nevertheless, during this current admission, he was altered and he had significant metabolic abnormalities and the patient was found to have an acute kidney injury with a creatinine of 2.53 and a BUN of 108. His calcium level was 13.3 with ionized calcium level of 7.4. CPK was 316. Ammonia level was less than 9. AST was 64, ALT was 33, TSH was 5.2 with a free T4 of 1.4. UA was negative. Urine drug screen was negative. Alcohol level was less than 10. CAT scan of the brain showed hydrocephalus/cerebral atrophy without any significant change compared to the earlier exam. No evidence of any acute stroke. No evidence of any acute hemorrhage. CAT scan of the C-spine showed questionable lytic lesion of vertebral bodies the possibility of multiple myeloma. This was a T1 lytic lesion and this was new compared to the earlier CAT scan of 10/10/2020. The chest x-ray was somewhat rotated. There was an area of infiltration in the right upper lobe which could represent potential underlying aspiration pneumonia. The white cell count currently is at 13.5 with a hemoglobin of 14. He has 49% bandemia, 39% neutrophilia, and lymphocytes were 7% with a monocytes of 6%. Potassium level was at 3.6. Troponin was at 0.06. In the ED, the patient was given a total of 2.5 L of IV fluids normal saline and currently the patient is on D5 half-normal saline running at 83 mL an hour. He is started producing urine output. He remains altered. He withdraws to painful stimulation. He cannot carry a conversation. No neck stiffness. No fever. No signs of any trauma this point in time. No biting of the tongue or lip. No skin bruises. No signs of any seizure activity as the patient is not having any jerky body movements. The patient was in the hospital on 01/18/2021 for a fall and a hairline intra-articular fracture of the left acetabulum. At that time, the patient was having significant pain. Patient was seen by orthopedic surgery. No surgery was done and the patient was given a wheelchair to rest for the next 3 months. He was also discharged home nonweightbearing on the left. He denied to go to rehabilitation. Apparently, prior to his discharge, the patient was alert and oriented 3. He was supposed to follow up with orthopedic services within 2 weeks following his discharge. He was drinking alcohol in the order of XB is on a daily basis and the patient was counseled for alcohol cessation prior to his discharge. His discharge medications included [place] in addition to thiamine and B6 vitamin and he was also given Ultram for pain control and folic acid. Patient was reevaluated today on 08/31/21, remains in the ICU, on room air and O2 saturation is 92%. Patient received 3 L of 0.9 normal saline for his hypercalcemia and now he is on D5 45 at 1 50 mL/h he is hemodynamically stable. Not requiring any pressors. His calcium is down to 10.8 creatinine is down to 1.31. Patient is supposed to have a CT of the chest abdomen and pelvis however we plan to have this done once his creatinine improves further. In the meantime we'll send some markers for underlying malignancy including PSA, CEA, and cancer antigen 199. Based on the presentation, we are most likely dealing with hypercalcemia secondary to underlying malignancy and possibly skeletal metastasis. CBC today is relatively unremarkable his potassium is 2.7 BUN is 61 creatinine 1.31. Patient remains confused, and encephalopathic. Chest x-ray is suggestive of possible aspiration pneumonia. Patient was reevaluated today on 09/01/21, basically about the same. Remains on few liters nasal cannula, IV fluid is cut down to 75 mL per hour. Serum calcium today is 10.0. However his mentation is about the same and the patient remains on antibiotics for presumptive aspiration pneumonia. Renal functioning is significantly improved, his BUN today is 29 creatinine is 0.93. Patient is having a bone scan today. And he may eventually need a CT of the chest abdomen and pelvis. Serum protein electrophoresis is pending. Reevaluated today on 09/02/21, patient remains in the ICU, he is basically the same. Remains confused, remains restless and agitated, and bone scan could not be done yesterday mostly because of his agitation and could not hold still. Today I'm recommending possibly placing the patient on Precedex, keep him calm, and go ahead and order the bone scan again to see if could be done today possibly. In the meantime the patient is confused, he is on 2 L nasal cannula O2 sats 95%, intermittently coughing and seems congested. Yesterday he received 1 dose of Lasix and he responded quite well. No chest x-ray was done today. Patient is on D5W at 75 mL per hour. His renal functioning is back to normal. Calcium today is 9.3, ionized calcium is 6.3. Renal profile is normal electrolytes are relatively normal WBC count is 10.8 hemoglobin is 10.7 platelets are 147. Workup for malignancy including the cancer markers have been all negative. Patient was deaf daily the bone scan, and possibly CT of the chest abdomen and pelvis. Objective - Vital Signs Vital signs: Vital Signs Temp 98.2 F 09/02/21 08:00 Pulse 112 H 09/02/21 10:00 Resp 9 L 09/02/21 10:00 BP 156/82 09/02/21 10:00 Pulse Ox 94 L 09/02/21 10:00 Intake & Output 09/01/21 09/02/21 09/02/21 18:59 06:59 18:59 Intake Total 1725 900 300 Output Total 3310 715 275 Balance -1585 185 25 Weight 62.4 kg Intake: IV 1125 900 300 Dextrose 5%-0.45% NaCl 1, 1125 900 300 000 ml @ 75 mls/hr IV . [id number] [facility] Rx#:[id number] Intake, IV Titration 600 Amount Potassium Chloride 10 meq 400 In Sodium Chloride 0.9% 100 ml @ 100 mls/hr IVPB Q1H [facility] Rx#:[id number] Potassium Chloride 20 meq 200 In Water For Injection 1 100ml.bag @ 50 mls/hr IVPB Q2H [facility] Rx#: [id number] Output: Urine 3310 715 275 Other: Voiding Method Indwelling Catheter Indwelling Catheter Indwelling Catheter - Exam Physical Exam: Revealed a 71-year-old white male, in no distress, intermittently coughing, and seems congested. Head: Atraumatic, normocephalic. HEENT:[Neck is supple.] [No neck masses.] [No thyromegaly.] [No JVD.], PERRLA, EOMI, nonicteric, dry mucous membranes Chest: [ Symmetrical chest expansion, crackles at the bases. Cardiac Exam: [Normal S1 and S2, no S3 gallop, no murmur.] Abdomen: [Soft, nontender, no megaly, no rebound, no guarding, normal bowel sounds.] Extremities: [No clubbing, no edema, no cyanosis.] Good pulses bilaterally. Neurological Exam: Confused, does not follow any instructions Skin: No rashes. Musculoskeletal: No deformities. Psychiatric: Could not be assessed - Labs CBC & Chem 7: 09/02/21 02:10 09/02/21 02:10 Labs: Abnormal Lab Results - Last 24 Hours (Table) 08/30/21 09/01/21 09/02/21 Range/Units 14:07 13:45 02:10 WBC 10.8 H (3.8-10.6) k/uL RBC 3.43 L (4.30-5.90) m/uL Hgb 10.7 L (13.0-17.5) gm/dL Hct 33.8 L (39.0-53.0) % Plt Count 147 L (150-450) k/uL Neutrophils # 9.3 H (1.3-7.7) k/uL Lymphocytes # 0.7 L (1.0-4.8) k/uL Potassium 3.4 L (3.5-5.1) mmol/L Chloride (98-107) mmol/L BUN (9-20) mg/dL Ionized Calcium Vera (4.5-5.3) mg/dL Albumin (PEP) 2.37 L (3.80-4.90) g/dL Gamma Globulins 0.43 L (0.70-1.50) g/dL 09/02/21 Range/Units 02:10 WBC (3.8-10.6) k/uL RBC (4.30-5.90) m/uL Hgb (13.0-17.5) gm/dL Hct (39.0-53.0) % Plt Count (150-450) k/uL Neutrophils # (1.3-7.7) k/uL Lymphocytes # (1.0-4.8) k/uL Potassium (3.5-5.1) mmol/L Chloride 114 H (98-107) mmol/L BUN 22 H (9-20) mg/dL Ionized Calcium Vera 6.3 H* (4.5-5.3) mg/dL Albumin (PEP) (3.80-4.90) g/dL Gamma Globulins (0.70-1.50) g/dL Assessment and Plan Assessment: Impression: Acute metabolic encephalopathy secondary to hypercalcemia exact etiology is yet to be determined however it's felt to be most likely to underlying malignancy unless for otherwise. Acute kidney injury, resolved with hydration. Acute hypercalcemia, workup is in progress. [place] to be hypercalcemia of malignancy unless for otherwise. Suspect aspiration pneumonia, continue Zosyn. Lytic lesion involving T1 of the spine. History of underlying COPD. History of hilar adenopathy not appreciated on most recent CT of the chest. History of alcoholism. History of recent left hairline hip fracture Recommendation: Arrange for a bone scan possibly today. Patient may be placed on Precedex to keep calm and sedated. Continue present treatment plan. Continue IV fluids at 75 mL per hour. Workup for underlying malignancy is pending Continue GI and DVT prophylaxis. Continue IV Zosyn for presumptive aspiration pneumonia Prognosis is poor CODE STATUS is DO NOT RESUSCITATE We'll continue to follow. Time with Patient: Less than 30
--- NOTE | 2021-09-02 12:28 | P.CRDCN ---
History of Present Illness Consult date: 09/02/21 History of present illness: History of Present Illness: The patient is a 71-year-old male who presented to the emergency room on August 29 with change in mental status of unknown etiology patient has a known history of alcohol and tobacco use. He was noted to have significant elevation of his calcium level as well as acute renal injury. Cardiology consultation is req uested because of short burst of nonsustained SVT. The patient is awake, confused unable to answer questions. His BUN on admission was 108 and calcium was 13.3. His alcohol level was less than 10. The C-spine x-ray showed questionable lytic lesion raising the possibility of multiple myeloma. A possible aspiration pneumonia could not be excluded. He is in sinus mechanism and has been having short burst of paroxysmal SVT, self terminating. The patient is nothing by mouth because of his confusion. He had no evidence of atrial fibrillation or ventricular ectopic activity. He is on no pressor and has good urinary output. A bone scan could not be done because of confusion. He continues to receive IV fluid with normalization of his renal functions. His calcium is down. So far his cancer markers have been negative. Review of system: Could not be obtained Physical Examination: 71-year-old male alert confused no apparent distress, appears older than stated age Blood pressure 140-150 systolic heart rate in the 110 with sinus tachycardia Head: Normocephalic. Eyes: Sclerae nonicteric. Neck: Good carotid upstroke, no bruit, no jugular venous distention. Lungs: Mild bilateral rhonchi. Heart: Regular rate and rhythm, S1-S2, no S3, no rub. Systolic murmur at the base, ejection type. Abdomen: Soft nontender, positive bowel sounds no organomegaly. Extremities: No edema, intact distal pulses. Labs: Potassium 3.5, BUN 22, creatinine 0.93. Ionized calcium 6.3. Calcium 9.3. AST 137, ALT 59. Hemoglobin 10.7, white blood cell 10.8 EKG on admission shows sinus tachycardia with nonspecific ST-T wave changes Impression: 1. Encephalopathy of unclear etiology appears to be metabolic. The etiology of his hypercalcemia is unclear, workup in progress for possible multiple myeloma 2. Paroxysmal SVT, could be related to electrolytes imbalance 3. Acute renal injury, improving 4. History of COPD 5. History of alcoholism Plan: 1. Obtain an echocardiogram with Doppler 2. Follow electrolytes and magnesium 3. Depending on his progress further recommendations will be made 4. Thank you for this consult we will follow. Past Medical History Past Medical History: No Reported History Additional Past Medical History / Comment(s): ETOH abuse, left hip fracture,, right hilar lymphadenopathy as evident on a CAT scan of the chest that was done on 04/12/2021. Note that the same CAT scan was compared to the earlier CAT scan done in January 2021 and there was improvement in the lymphadenopathy along the right hilum. The patient had also nonspecific focal sclerosing lesion involving the L3 vertebral body. History of Any Multi-Drug Resistant Organisms: None Reported Past Surgical History: Orthopedic Surgery Additional Past Surgical History / Comment(s): Left hip surgery, left testicle. Past Anesthesia/Blood Transfusion Reactions: No Reported Reaction Past Psychological History: No Psychological Hx Reported Smoking Status: Current every day smoker Past Alcohol Use History: Daily Past Drug Use History: None Reported - Past Family History Father History Unknown: Yes Mother History Unknown: Yes Medications and Allergies Home Medications Medication Instructions Recorded Confirmed Type Folic Acid 1 mg PO DAILY 01/18/21 08/30/21 History Pyridoxine HCl (Vitamin B6) 25 mg PO DAILY 01/18/21 08/30/21 History [Pyridoxine HCl] Thiamine HCl [Vitamin B-1] 100 mg PO DAILY 01/18/21 08/30/21 History Allergies Allergy/AdvReac Type Severity Reaction Status Date / Time No Known Allergies Allergy Verified 08/30/21 13:17 Physical Exam Vitals: Vital Signs Temp Pulse Resp BP Pulse Ox 09/02/21 11:29 103 H 09/02/21 11:18 112 H 09/02/21 10:00 112 H 9 L 156/82 94 L 09/02/21 09:00 112 H 18 140/61 95 09/02/21 08:24 113 H 09/02/21 08:14 113 H 96 09/02/21 08:00 98.2 F 117 H 17 146/93 96 09/02/21 07:00 112 H 24 172/91 97 09/02/21 06:00 112 H 25 H 117/70 09/02/21 05:00 112 H 17 117/70 93 L 09/02/21 04:00 100.0 F H 112 H 12 140/77 95 09/02/21 03:27 113 H 09/02/21 03:18 115 H 09/02/21 03:00 83 11 L 147/76 96 09/02/21 02:00 114 H 18 115/73 96 09/02/21 01:00 115 H 15 115/73 93 L 09/02/21 00:00 100.1 F H 117 H 26 H 113/72 96 09/01/21 23:50 122 H 09/01/21 23:42 117 H 93 L 09/01/21 23:00 116 H 34 H 113/72 93 L 09/01/21 22:00 114 H 26 H 115/63 93 L 09/01/21 21:00 111 H 22 112/73 96 09/01/21 20:00 98.7 F 115 H 29 H 111/77 92 L 09/01/21 19:23 112 H 09/01/21 19:13 110 H 09/01/21 19:00 112 H 29 H 126/52 92 L 09/01/21 18:00 114 H 14 104/57 92 L 09/01/21 17:00 123 H 28 H 107/73 92 L 09/01/21 16:00 99.6 F 118 H 27 H 112/71 92 L 09/01/21 15:47 114 H 09/01/21 15:33 112 H 09/01/21 15:00 122 H 21 125/66 93 L 09/01/21 14:00 94 22 105/69 94 L 09/01/21 13:00 104 H 24 120/80 94 L Intake and Output 09/01/21 09/02/21 09/02/21 22:59 06:59 14:59 Intake Total 800 600 300 Output Total 1050 360 275 Balance -250 240 25 Intake: IV 600 600 300 Dextrose 5%-0.45% NaCl 1, 600 600 300 000 ml @ 75 mls/hr IV . [id number] [facility] Rx#:[id number] Intake, IV Titration 200 Amount Potassium Chloride 20 meq 200 In Water For Injection 1 100ml.bag @ 50 mls/hr IVPB Q2H [facility] Rx#: [id number] Output: Urine 1050 360 275 Other: Voiding Method Indwelling Catheter Indwelling Catheter Indwelling Catheter Weight 62.4 kg Results 09/02/21 02:10 09/02/21 02:10 CBC 09/02/21 Range/Units 02:10 WBC 10.8 H (3.8-10.6) k/uL RBC 3.43 L (4.30-5.90) m/uL Hgb 10.7 L (13.0-17.5) gm/dL Hct 33.8 L (39.0-53.0) % Plt Count 147 L (150-450) k/uL Comprehensive Metabolic Panel 09/01/21 09/01/21 09/02/21 Range/Units 13:45 21:18 02:10 Sodium 144 (137-145) mmol/L Potassium 3.4 L 3.6 3.5 (3.5-5.1) mmol/L Chloride 114 H (98-107) mmol/L Carbon Dioxide 27 (22-30) mmol/L BUN 22 H (9-20) mg/dL Creatinine 0.93 (0.66-1.25) mg/dL Glucose 98 (74-99) mg/dL Calcium 9.3 (8.4-10.2) mg/dL Current Medications Generic Name Dose Route Start Last Admin Trade Name Freq PRN Reason Stop Dose Admin Albuterol/Ipratropium 3 ml 08/30/21 04:00 09/02/21 11:17 Ipratropium-Albuterol 3 Ml Neb INHALATION 3 ml RT-Q4H [facility] Administration Heparin Sodium (Porcine) 5,000 unit 08/31/21 00:00 09/02/21 08:18 Heparin Sodium,Porcine/Pf 5,000 Unit/0.5 Ml Syringe SQ 5,000 unit Q8HR [facility] Administration Piperacillin Sod/Tazobactam 100 mls @ 25 mls/hr 08/30/21 12:00 09/02/21 03:43 Sod 3.375 gm/ Sodium Chloride IVPB 25 mls/hr Q8H [facility] Administration Protocol Dextrose/Sodium Chloride 1,000 mls @ 75 mls/hr 08/30/21 17:45 09/02/21 03:44 Dextrose 5%-1/2ns Iv Soln IV 75 mls/hr .[id number] [facility] Administration Miscellaneous Information 1 each 08/31/21 07:01 Potassium Replacement Protocol 1 Each Misc MISCELLANE DAILY PRN Per Protocol Protocol Pantoprazole Sodium 40 mg 08/31/21 09:00 09/02/21 08:18 Pantoprazole 40 Mg/10 Ml Vial IVP 40 mg DAILY [facility] Administration Thiamine HCl 100 mg 08/30/21 14:00 09/02/21 08:18 Thiamine 100 Mg/Ml 2 Ml Vial IVP 100 mg DAILY [facility] Administration Intake and Output 09/01/21 09/02/21 09/02/21 22:59 06:59 14:59 Intake Total 800 600 300 Output Total 1050 360 275 Balance -250 240 25 Intake: IV 600 600 300 Dextrose 5%-0.45% NaCl 1, 600 600 300 000 ml @ 75 mls/hr IV . [id number] [facility] Rx#:[id number] Intake, IV Titration 200 Amount Potassium Chloride 20 meq 200 In Water For Injection 1 100ml.bag @ 50 mls/hr IVPB Q2H [facility] Rx#: [id number] Output: Urine 1050 360 275 Other: Voiding Method Indwelling Catheter Indwelling Catheter Indwelling Catheter Weight 62.4 kg 09/02/21 02:10 09/02/21 02:10
[2021-09-02 12:48] VITALS: BMI 19.1
--- NOTE | 2021-09-02 12:48 | P.PN ---
Subjective Patient is seen for follow-up for acute kidney injury and hypercalcemia. Renal function has improved Serum calcium has improved as well since initial admission. Patient received a dose of pamidronate. PTH level is appropriately low and patient was found to have a possible lytic lesion on his spine. All other workup is negative including Deric level, and one 25-hydroxy vitamin D level. Immunofixation is currently pending Objective - Vital Signs Vital signs: Vital Signs Temp 100.0 F H 09/02/21 12:00 Pulse 92 09/02/21 12:00 Resp 9 L 09/02/21 12:00 BP 134/60 09/02/21 12:00 Pulse Ox 95 09/02/21 12:00 Intake & Output 09/01/21 09/02/21 09/02/21 18:59 06:59 18:59 Intake Total 1725 900 450 Output Total 3310 715 350 Balance -1585 185 100 Weight 62.4 kg Intake: IV 1125 900 450 Dextrose 5%-0.45% NaCl 1, 1125 900 450 000 ml @ 75 mls/hr IV . [id number] [facility] Rx#:[id number] Intake, IV Titration 600 Amount Potassium Chloride 10 meq 400 In Sodium Chloride 0.9% 100 ml @ 100 mls/hr IVPB Q1H [facility] Rx#:[id number] Potassium Chloride 20 meq 200 In Water For Injection 1 100ml.bag @ 50 mls/hr IVPB Q2H [facility] Rx#: [id number] Output: Urine 3310 715 350 Other: Voiding Method Indwelling Catheter Indwelling Catheter Indwelling Catheter - Exam Awake, comfortable, confused Examination of the heart tachycardic regular Examination of the lungs shows decreased breath sounds at the bases Abdomen is soft nontender Examination lower extremity shows no evidence of edema Patient is moving all 4 extremities - Labs CBC & Chem 7: 09/02/21 02:10 09/02/21 02:10 Labs: Abnormal Lab Results - Last 24 Hours (Table) 08/30/21 09/01/21 09/02/21 Range/Units 14:07 13:45 02:10 WBC 10.8 H (3.8-10.6) k/uL RBC 3.43 L (4.30-5.90) m/uL Hgb 10.7 L (13.0-17.5) gm/dL Hct 33.8 L (39.0-53.0) % Plt Count 147 L (150-450) k/uL Neutrophils # 9.3 H (1.3-7.7) k/uL Lymphocytes # 0.7 L (1.0-4.8) k/uL Potassium 3.4 L (3.5-5.1) mmol/L Chloride (98-107) mmol/L BUN (9-20) mg/dL Ionized Calcium Vera (4.5-5.3) mg/dL Albumin (PEP) 2.37 L (3.80-4.90) g/dL Gamma Globulins 0.43 L (0.70-1.50) g/dL 09/02/21 Range/Units 02:10 WBC (3.8-10.6) k/uL RBC (4.30-5.90) m/uL Hgb (13.0-17.5) gm/dL Hct (39.0-53.0) % Plt Count (150-450) k/uL Neutrophils # (1.3-7.7) k/uL Lymphocytes # (1.0-4.8) k/uL Potassium (3.5-5.1) mmol/L Chloride 114 H (98-107) mmol/L BUN 22 H (9-20) mg/dL Ionized Calcium Vera 6.3 H* (4.5-5.3) mg/dL Albumin (PEP) (3.80-4.90) g/dL Gamma Globulins (0.70-1.50) g/dL Assessment and Plan Assessment: 1. Acute kidney injury secondary to volume depletion and hypercalcemia, currently improving. UA shows trace protein. Ultrasound of the kidney shows no hydronephrosis. 2. Hypercalcemia associated with intravascular volume depletion. Not sure if patient was taking Tums at home. His PTH is appropriately low. All other workup negative thus far. Urine immunofixation is pending. Lytic lesion on the spine noted on CT. Hematology is on consult for possible myeloma 3. Hypokalemia currently being replaced 4. Altered mentation associated with hypercalcemia and acute kidney injury, currently slightly improved 5. History of EtOH abuse 6. History of hilar adenopathy, Plan: Continue IV fluids Replace potassium aggressively Repeat labs in a.m. Avoid any nephrotoxic agents Will sign off
[2021-09-02 14:53] LABS: Free Kappa Lt Chain Qnt, Serum 2.49 mg/dL (0.33-1.94); Free Lambda Lt Chain Qnt, Seru 4.02 mg/dL (0.57-2.63)
--- NOTE | 2021-09-02 16:58 | P.PN ---
Subjective Progress Note Date: 09/01/21 Patient initially seen by Dr. Jonny Mcclellan. Please refer to his note for details. Patient is a 71-year-old male who was found down at a hotel with incontinence of urine and feces, unknown downtime, although last seen normal about a week prior to arrival. Patient had developed encephalopathy, likely metabolic with some pneumonia. Patient also has lytic lesions and hypercalcemia, concern for myeloma. Patient continues to be encephalopathic. He does open his eyes and makes eye contact, but does not follow much commands. Patient does move his arms and legs. Patient is congested, coughing, appears slightly short of breath. Patient appears cachectic. Objective - Vital Signs Vital signs: Vital Signs Temp 99.9 F H 09/01/21 12:00 Pulse 94 09/01/21 14:00 Resp 22 09/01/21 14:00 BP 105/69 09/01/21 14:00 Pulse Ox 94 L 09/01/21 14:00 Intake & Output 08/31/21 09/01/21 09/01/21 18:59 06:59 18:59 Intake Total 2500 1800 1225 Output Total 058 043 2877 Balance 1540 1040 -1390 Weight 59.9 kg 65.6 kg Intake: IV 1800 1800 825 Dextrose 5%-0.45% NaCl 1, 1500 000 ml @ 150 mls/hr IV . [id number] [facility] Rx#:[id number] Dextrose 5%-0.45% NaCl 1, 300 1800 825 000 ml @ 75 mls/hr IV . [id number] [facility] Rx#:[id number] Intake, IV Titration 700 400 Amount Potassium Chloride 10 meq 400 In Sodium Chloride 0.9% 100 ml @ 100 mls/hr IVPB Q1H [facility] Rx#:[id number] Potassium Chloride 10 meq 600 In Sodium Chloride 0.9% 100 ml @ 105 mls/hr IVPB Q1HR [facility] Rx#:[id number] Potassium Chloride 10 meq 100 In Water For Injection 1 100ml.bag @ 100 mls/hr IVPB Q1HR [facility] Rx#: [id number] Output: Urine 856 288 0156 Other: Voiding Method Indwelling Catheter Indwelling Catheter Indwelling Catheter - Exam Patient is obviously encephalopathic. He does open his eyes, makes eye contact sporadically, slightly tracks. Patient's face is symmetric. Pupils are round and reacting. Extraocular muscles are intact. Patient moves his arms and legs. His left hand is in a mitten. Reflexes are 3 in the arms at the biceps and bra chioradialis, 3 at the knees trace ankles and plantars are downgoing. Patient withdraws to painful stimuli equally. No obvious focal weakness. - Labs CBC & Chem 7: 09/02/21 02:10 09/02/21 02:10 Labs: Abnormal Lab Results - Last 24 Hours (Table) 08/31/21 08/31/21 08/31/21 Range/Units 08:24 14:44 14:44 WBC (3.8-10.6) k/uL RBC (4.30-5.90) m/uL Hgb (13.0-17.5) gm/dL Hct (39.0-53.0) % MCV (80.0-100.0) fL Plt Count (150-450) k/uL Neutrophils # (1.3-7.7) k/uL Lymphocytes # (1.0-4.8) k/uL Potassium (3.5-5.1) mmol/L Chloride (98-107) mmol/L BUN (9-20) mg/dL Glucose (74-99) mg/dL Iron 12 L (65-175) ug/dL TIBC 160 L (228-460) ug/dL % Saturation 7.27 L (15.00-50.00) Transferrin 114.0 L (204.0-354.0) mg/dL Ferritin 1547.0 H (22.0-322.0) ng/mL AST (17-59) U/L ALT (4-49) U/L Lactate Dehydrogenase 1764 H (313-618) U/L Total Protein (6.3-8.2) g/dL Albumin (3.5-5.0) g/dL Vitamin B12 >2000.0 H (200.0-944.0) pg/mL Vitamin D 25-Hydroxy 21.9 L (30.0-100.0) ng/mL IgG 492.0 L (700.0-1600.0) mg/dL IgM 30.2 L (40.0-280.0) mg/dL 08/31/21 09/01/21 09/01/21 Range/Units 14:44 06:40 06:40 WBC 10.8 H (3.8-10.6) k/uL RBC 3.37 L (4.30-5.90) m/uL Hgb 10.8 L (13.0-17.5) gm/dL Hct 34.1 L (39.0-53.0) % MCV 101.3 H (80.0-100.0) fL Plt Count 128 L (150-450) k/uL Neutrophils # 9.5 H (1.3-7.7) k/uL Lymphocytes # 0.6 L (1.0-4.8) k/uL Potassium 3.2 L 3.3 L (3.5-5.1) mmol/L Chloride 118 H (98-107) mmol/L BUN 29 H (9-20) mg/dL Glucose 110 H (74-99) mg/dL Iron (65-175) ug/dL TIBC (228-460) ug/dL % Saturation (15.00-50.00) Transferrin (204.0-354.0) mg/dL Ferritin (22.0-322.0) ng/mL AST 137 H (17-59) U/L ALT 59 H (4-49) U/L Lactate Dehydrogenase (313-618) U/L Total Protein 4.2 L (6.3-8.2) g/dL Albumin 1.8 L (3.5-5.0) g/dL Vitamin B12 (200.0-944.0) pg/mL Vitamin D 25-Hydroxy (30.0-100.0) ng/mL IgG (700.0-1600.0) mg/dL IgM (40.0-280.0) mg/dL 09/01/21 Range/Units 13:45 WBC (3.8-10.6) k/uL RBC (4.30-5.90) m/uL Hgb (13.0-17.5) gm/dL Hct (39.0-53.0) % MCV (80.0-100.0) fL Plt Count (150-450) k/uL Neutrophils # (1.3-7.7) k/uL Lymphocytes # (1.0-4.8) k/uL Potassium 3.4 L (3.5-5.1) mmol/L Chloride (98-107) mmol/L BUN (9-20) mg/dL Glucose (74-99) mg/dL Iron (65-175) ug/dL TIBC (228-460) ug/dL % Saturation (15.00-50.00) Transferrin (204.0-354.0) mg/dL Ferritin (22.0-322.0) ng/mL AST (17-59) U/L ALT (4-49) U/L Lactate Dehydrogenase (313-618) U/L Total Protein (6.3-8.2) g/dL Albumin (3.5-5.0) g/dL Vitamin B12 (200.0-944.0) pg/mL Vitamin D 25-Hydroxy (30.0-100.0) ng/mL IgG (700.0-1600.0) mg/dL IgM (40.0-280.0) mg/dL Assessment and Plan Assessment: * Altered mental status, probable toxic metabolic encephalopathy. Patient was found unresponsive by EMS and last known normal was 1 week prior. * Aspiration pneumonia * Hypercalcemia * Acute kidney injury, improving. * Reported history of alcohol use. Plan: * EEG was performed today. It is an abnormal EEG due to background slowing of moderate to severe degree. This is suggestive of generalized cerebral dysfunction as can be seen with toxic metabolic encephalopathy or due to diffuse structural brain abnormality. No epileptiform activity was seen. No indication for antiepileptic medication. * Vitamin B12 > 2000, folate level 8.5, repeat level > 20, TSH normal. Ionized calcium 7.4 (4.5-5.3). I ordered the parathyroid hormone * CT of the head is reported as there is hydrocephalus and cerebral atrophy without change compared to old exam. No acute intracranial abnormality. I personally reviewed the CT of the head and there is no acute subacute ischemia and there is no typical hemorrhage. I do agree there is hydrocephalus throughout all ventricles but predominately over the posterolateral ventricles. I feel this is atypical for NPH since does not seems symmetrical enlargement. Agree with these findings on my review as well. * Await MRI of the brain and cervical spine. * Nephrology following * Continue thiamine . * PT and OT when able to participate. * I'll defer the rest of the medical management to the primary team and ICU team. * Neurology will follow.
--- NOTE | 2021-09-02 17:02 | P.PN ---
Subjective Progress Note Date: 09/02/21 09/02/2021: Patient more alert and awake. He tried to mumble a little. Still not following commands. Patient makes eye contact, tracks. Patient is not on any sedation. Patient not able to cooperate for MRI or bone scan. 09/01/2021: Patient initially seen by Dr. Jonny Mcclellan. Please refer to his note for details. Patient is a 71-year-old male who was found down at a hotel with incontinence of urine and feces, unknown downtime, although last seen normal about a week prior to arrival. Patient had developed encephalopathy, likely metabolic with some pneumonia. Patient also has lytic lesions and hypercalcemia, concern for myeloma. Patient continues to be encephalopathic. He does open his eyes and makes eye contact, but does not follow much commands. Patient does move his arms and legs. Patient is congested, coughing, appears slightly short of breath. Patient appears cachectic. Objective - Vital Signs Vital signs: Vital Signs Temp 100.0 F H 09/02/21 12:00 Pulse 87 09/02/21 15:00 Resp 10 L 09/02/21 15:00 BP 141/81 09/02/21 15:00 Pulse Ox 96 09/02/21 15:00 Intake & Output 09/01/21 09/02/21 09/02/21 18:59 06:59 18:59 Intake Total 1725 900 675 Output Total 3310 715 520 Balance -1585 185 155 Weight 62.4 kg 62.4 kg Intake: IV 1125 900 675 Dextrose 5%-0.45% NaCl 1, 1125 900 675 000 ml @ 75 mls/hr IV . [id number] [facility] Rx#:[id number] Intake, IV Titration 600 Amount Potassium Chloride 10 meq 400 In Sodium Chloride 0.9% 100 ml @ 100 mls/hr IVPB Q1H [facility] Rx#:[id number] Potassium Chloride 20 meq 200 In Water For Injection 1 100ml.bag @ 50 mls/hr IVPB Q2H [facility] Rx#: [id number] Output: Urine 3310 715 520 Other: Voiding Method Indwelling Catheter Indwelling Catheter Indwelling Catheter - Exam Patient is more alert and awake, still obviously encephalopathic. He does open his eyes, makes eye contact, turns his head and face towards the examiner. Patient's face is symmetric. Pupils are equal, round and reacting. Extraocular muscles are intact. Patient moves his arms and legs. His left hand is in a mitten. Reflexes are 3 in the arms at the biceps and brachioradialis, 3 at the knees trace ankles and plantars are downgoing. Patient withdraws to painful stimuli equally. No obvious focal weakness. No peripheral edema. Patient is not on any sedation. - Labs CBC & Chem 7: 09/02/21 02:10 09/02/21 02:10 Labs: Abnormal Lab Results - Last 24 Hours (Table) 08/31/21 09/02/21 09/02/21 Range/Units 14:44 02:10 02:10 WBC 10.8 H (3.8-10.6) k/uL RBC 3.43 L (4.30-5.90) m/uL Hgb 10.7 L (13.0-17.5) gm/dL Hct 33.8 L (39.0-53.0) % Plt Count 147 L (150-450) k/uL Neutrophils # 9.3 H (1.3-7.7) k/uL Lymphocytes # 0.7 L (1.0-4.8) k/uL Chloride 114 H (98-107) mmol/L BUN 22 H (9-20) mg/dL Ionized Calcium Vera 6.3 H* (4.5-5.3) mg/dL Free [place] LC, Quant 2.49 H (0.33-1.94) mg/dL Free [place] LC, Quant 4.02 H (0.57-2.63) mg/dL Assessment and Plan Assessment: * Altered mental status, probable toxic metabolic encephalopathy. Patient was found unresponsive by EMS and last known normal was 1 week prior. * Aspiration pneumonia * Hypercalcemia * Lytic lesion on the x-rays, await bone scan. Hematology oncology on board. * Acute kidney injury, improving. * Reported history of alcohol use. Plan: * Patient's level of alertness and consciousness has improved. Still very encephalopathic. * EEG from 09/01/2021 was an abnormal EEG due to background slowing of moderate to severe degree. This is suggestive of generalized cerebral dysfunction as can be seen with toxic metabolic encephalopathy or due to diffuse structural brain abnormality. No epileptiform activity was seen. No indication for an tiepileptic medication. * Vitamin B12 > 2000, folate level 8.5, repeat level > 20, TSH normal. Ionized calcium 7.4 (4.5-5.3). I ordered the parathyroid hormone * CT of the head is reported as there is hydrocephalus and cerebral atrophy without change compared to old exam. No acute intracranial abnormality. I personally reviewed the CT of the head and there is no acute subacute ischemia and there is no typical hemorrhage. I do agree there is hydrocephalus throughout all ventricles but predominately over the posterolateral ventricles. I feel this is atypical for NPH since does not seems symmetrical enlargement. Agree with these findings on my review as well. * Await MRI of the brain and cervical spine. * Nephrology following * Continue thiamine . * PT and OT when able to participate. * I'll defer the rest of the medical management to the primary team and ICU team. * Neurology will follow sporadically.
--- NOTE | 2021-09-02 17:37 | P.PN ---
Subjective Progress Note Date: 09/02/21 Patient was admitted to hospital Hospital after he was found unresponsive. Patient is admitted to the hospital after he was found unresponsive at home. Patient is believed to have aspiration pneumonia for which patient is on Zosyn. Patient is still not responsive patient does have significant metabolic encephalopathy may be consistent with a is being treated for aspiration pneumonia this time. Patient is also hypocalcemic most probably secondary to dehydration, patient is undergoing hypercalcemia workup. She also has hilar lymphadenopathy because of which patient is undergoing workup for sarcoidosis. 09/01/2021 Patient's severe metabolic encephalopathy is improving at this time patient has lactic lesion in the spine because of which there is a significant suspicion of the malignancy although primary is not clear patient doesn't have any highlighted did not lymphadenopathy and repeat CT oncology is following the patient as well. Patient can use to have hypercalcemia. Patient had volume overload and pulmonary edema because of IV fluids because of which she is also receiving Lasix. Patient is receiving both Lasix and IV fluids because of his hypercalcemia. She remains hypokalemic because of IV fluids now he received IV Lasix potassium will be replaced. Patient is more awake today. He is sitting he does understand and following commands. Patient's renal failure although i mproved significantly. 09/02/2021 patient is seen in follow-up continues to be in the ICU with multiple medical consultations following. Patient continues to be confused and restless and anxious at times. EEG was done and abnormal due to encephalopathy with no epileptiform activity noted. Patient continues with congestion and gurgling at times and unable to clear secretions requiring suction. Patient is currently NPO and his mentation continues to be encephalopathic. Potassium is 3.5 today and will closely monitor and replace per protocol. Cardiology was consulted and pending at this time for SVT. REVIEW OF SYSTEMS: Unable to obtain due to his clinical condition Active Medications Albuterol/Ipratropium (Ipratropium-Albuterol 3 Ml Neb) 3 ml INHALATION RT-Q4H [facility] Last Admin: 09/02/21 11:17 Dose: 3 ml Documented by: Heparin Sodium (Porcine) (Heparin Sodium,Porcine/Pf 5,000 Unit/0.5 Ml Syringe) 5,000 unit SQ Q8HR [facility] Last Admin: 09/02/21 08:18 Dose: 5,000 unit Documented by: Piperacillin Sod/Tazobactam (Sod 3.375 gm/ Sodium Chloride) 100 mls @ 25 mls/hr IVPB Q8H [facility]; Protocol Last Admin: 09/02/21 03:43 Dose: 25 mls/hr Documented by: Dextrose/Sodium Chloride (Dextrose 5%-1/2ns Iv Soln) 1,000 mls @ 75 mls/hr IV .[id number] [facility] Last Admin: 09/02/21 03:44 Dose: 75 mls/hr Documented by: Miscellaneous Information (Potassium Replacement Protocol 1 Each Misc) 1 each MISCELLANE DAILY PRN; Protocol PRN Reason: Per Protocol Pantoprazole Sodium (Pantoprazole 40 Mg/10 Ml Vial) 40 mg IVP DAILY [facility] Last Admin: 09/02/21 08:18 Dose: 40 mg Documented by: Thiamine HCl (Thiamine 100 Mg/Ml 2 Ml Vial) 100 mg IVP DAILY [facility] Last Admin: 09/02/21 08:18 Dose: 100 mg Documented by: PHYSICAL EXAMINATION: GENERAL: The patient is conscious and continues to be confused. Patient will respond to name. Does not follow commands. HEENT: Pupils are round and equally reacting to light. EOMI. No scleral icterus. No conjunctival pallor. Normocephalic, atraumatic. No pharyngeal erythema. No thyromegaly. CARDIOVASCULAR: S1 and S2 present. No murmurs, rubs, or gallops. PULMONARY: Diffuse bilateral rhonchi ABDOMEN: Soft, nontender, nondistended, normoactive bowel sounds. No palpable organomegaly. MUSCULOSKELETAL: No joint swelling or deformity. EXTREMITIES: No cyanosis, clubbing, or pedal edema. NEUROLOGICAL: confused. restless and anxious at times and pulls at telemetry and IV lines SKIN: No rashes. Assessment: -Metabolic and toxic encephalopathy: Secondary to hypercalcemia, severe dehydration, pneumonia. Patient is on antibiotics for aspiration pneumonia -Aspiration pneumonia -Paroxysmal SVT possibly secondary to electrolyte imbalance -Hypercalcemia secondary to dehydration. suspicion of malignancy because of the lytic lesion in the spine although there is no hilar lymphadenopathy on repeat CT. Patient's serum calcium trending down. 9.3 today -Hypokalemia secondary to natriuresis and up last will be replaced Some pulmonary edema secondary to IV fluids patient is receiving Lasix at this time. -Acute renal failure secondary to dehydration -COPD without any acute exacerbation -Hilar lymphadenopathy: Not Seen on the recent CT. -DVT prophylaxis: Subcutaneous heparin -no code Plan: Recommend continue with current medications, continue IV zosyn Potassium 3.5 and will continue with replacement per protocol follow-up repeat labs Recommend to continue with telemetry monitoring. Cardiology consulted for SVT. Oncology following as well and plan is for possible bone scan if patient able to tolerate Continue with nothing by mouth at this time Prognosis guarded The impression and plan of care has been dictated by Jeri Parsons, Nurse Practitioner as directed. Dr. Azeb MD I have performed a history and examination and MDM of this patient, discussed the same with the dictator, and agree with the dictator's assessment and plan as written ,documented as a scribe. Based on total visit time, I have performed more than 50% of the visit. Objective - Vital Signs Vital signs: Vital Signs Temp 100.0 F H 09/02/21 04:00 Pulse 113 H 09/02/21 08:24 Resp 24 09/02/21 07:00 BP 172/91 09/02/21 07:00 Pulse Ox 96 09/02/21 08:14 Intake & Output 09/01/21 09/02/21 09/02/21 18:59 06:59 18:59 Intake Total 1725 900 75 Output Total 3310 715 50 Balance -1585 185 25 Weight 62.4 kg Intake: IV 1125 900 75 Dextrose 5%-0.45% NaCl 1, 1125 900 75 000 ml @ 75 mls/hr IV . [id number] [facility] Rx#:[id number] Intake, IV Titration 600 Amount Potassium Chloride 10 meq 400 In Sodium Chloride 0.9% 100 ml @ 100 mls/hr IVPB Q1H [facility] Rx#:[id number] Potassium Chloride 20 meq 200 In Water For Injection 1 100ml.bag @ 50 mls/hr IVPB Q2H [facility] Rx#: [id number] Output: Urine 3310 715 50 Other: Voiding Method Indwelling Catheter Indwelling Catheter - Labs CBC & Chem 7: 09/02/21 02:10 09/02/21 02:10 Labs: Abnormal Lab Results - Last 24 Hours (Table) 08/30/21 08/31/21 09/01/21 Range/Units 14:07 14:44 13:45 WBC (3.8-10.6) k/uL RBC (4.30-5.90) m/uL Hgb (13.0-17.5) gm/dL Hct (39.0-53.0) % Plt Count (150-450) k/uL Neutrophils # (1.3-7.7) k/uL Lymphocytes # (1.0-4.8) k/uL Potassium 3.4 L (3.5-5.1) mmol/L Chloride (98-107) mmol/L BUN (9-20) mg/dL Ionized Calcium Vera (4.5-5.3) mg/dL Iron 12 L (65-175) ug/dL TIBC 160 L (228-460) ug/dL % Saturation 7.27 L (15.00-50.00) Transferrin 114.0 L (204.0-354.0) mg/dL Ferritin 1547.0 H (22.0-322.0) ng/mL Albumin (PEP) 2.37 L (3.80-4.90) g/dL Gamma Globulins 0.43 L (0.70-1.50) g/dL Vitamin B12 >2000.0 H (200.0-944.0) pg/mL 09/02/21 09/02/21 Range/Units 02:10 02:10 WBC 10.8 H (3.8-10.6) k/uL RBC 3.43 L (4.30-5.90) m/uL Hgb 10.7 L (13.0-17.5) gm/dL Hct 33.8 L (39.0-53.0) % Plt Count 147 L (150-450) k/uL Neutrophils # 9.3 H (1.3-7.7) k/uL Lymphocytes # 0.7 L (1.0-4.8) k/uL Potassium (3.5-5.1) mmol/L Chloride 114 H (98-107) mmol/L BUN 22 H (9-20) mg/dL Ionized Calcium Vera 6.3 H* (4.5-5.3) mg/dL Iron (65-175) ug/dL TIBC (228-460) ug/dL % Saturation (15.00-50.00) Transferrin (204.0-354.0) mg/dL Ferritin (22.0-322.0) ng/mL Albumin (PEP) (3.80-4.90) g/dL Gamma Globulins (0.70-1.50) g/dL Vitamin B12 (200.0-944.0) pg/mL
[2021-09-03] MEDS: PIPERACILLIN-TAZOBACTAM 3.375 GM in SODIUM CHLORIDE 0.9% 100 ML IVPB SCH ×3 (03:26→21:29)
[2021-09-03] MEDS: IPRATROPIUM-ALBUTEROL 3 ML NEB INHALATION SCH ×6 (03:34→23:32)
--- NOTE | 2021-09-03 06:42 | ECHOF ---
Referral Reason:svt MEASUREMENTS -------- HEIGHT: 0.0 cm WEIGHT: 0.0 kg BP: 122/82 RVIDd: 1.9 cm (< 3.3) IVSd: 1.0 cm (0.6 - 1.1) LVIDd: 3.4 cm (3.9 - 5.3) LVPWd: 1.1 cm (0.6 - 1.1) IVSs: 1.6 cm LVIDs: 2.2 cm LVPWs: 1.5 cm LA Diam: 2.6 cm (2.7 - 3.8) Ao Diam: 3.0 cm (2.0 - 3.7) MV EXCURSION: 12.842 mm (> 18.000) MV EF SLOPE: 93 mm/s (70 - 150) EPSS: 0.6 cm MV E Evelio: 0.78 m/s MV DecT: 159 ms MV A Evelio: 0.86 m/s MV E/A Ratio: 0.90 RAP: 5.00 mmHg RVSP: 21.56 mmHg FINDINGS -------- Resting tachycardia (HR>100bpm). This was a technically adequate study. The left ventricular size is normal. Left ventricular wall thickness is normal. Overall left vent ricular systolic function is normal with, an EF between 60 - 65 %. The right ventricle is normal in size. The left atrium is normal in size. The right atrium is normal in size. Interatrial and interventricular septum intact. The aortic valve is trileaflet, and appears structurally normal. No aortic stenosis or regurgitation. The mitral valve is normal. Mild tricuspid regurgitation present. Right ventricular systolic pressure is normal at < 35 mmHg. The pulmonic valve is normal. The aortic root size is normal. Normal inferior vena cava with normal inspiratory collapse consistent with estimated right atrial pre ssure of 5 mmHg. There is no pericardial effusion. CONCLUSIONS -------- 1. The left ventricular size is normal. 2. Left ventricular wall thickness is normal. 3. Overall left ventricular systolic function is normal with, an EF between 60 - 65 %. 4. Mild tricuspid regurgitation present. 5. There is no pericardial effusion. STOCK LETTERER: Aranza Vazquez RDCS
[2021-09-03 06:43] LABS: Magnesium 1.9 mg/dL (1.6-2.3); Potassium 3.3 mmol/L (3.5-5.1)
[2021-09-03] MEDS: POTASSIUM CHLORIDE 10 MEQ in WATER FOR INJECTION 1 100ML.BAG IVPB SCH ×4 (07:10→10:30)
--- NOTE | 2021-09-03 07:28 | P.PN ---
Subjective Progress Note Date: 09/03/21 PROGRESS NOTE The patient is a 71-year-old male who presented to the hospital with change in mental status and evidence of metabolic encephalopathy with acute renal injury, hypercalcemia. He is undergoing workup for the etiology of his hypercalcemia and elevated take lesion noted on his T1. There is a possibility of aspiration pneumonia. He was seen by cardiology yesterday because of short burst of SVT. He remains awake, confused, following some commands. He is in sinus mechanism on no vasopressors. He had an echocardiogram performed that showed a normal systolic function with no significant valvular disease. He has no evidence of atrial fibrillation or ventricular ectopic activity. He has been followed by neurology. PHYSICAL EXAMINATION: 71-year-old male alert, confused but following some verbal commands. Appears congested Blood pressure 108/77 heart rate 103 LUNGS: Clear to auscultation HEART: Regular rate and rhythm, S1, S2. No S3. systolic ejection murmur ABDOMEN: Soft, nontender, no organomegaly EXTREMETIES: No edema LAB: Potassium 3.3, magnesium 1.9. IMPRESSION: 1. Change in mental status with evidence of metabolic encephalopathy, workup in progress 2. Episodes of paroxysmal SVT, most likely related to electrolytes imbalance. Stable at this time 3. Hypercalcemia with a lytic lesion on T1, workup in progress 4. Acute renal injury, resolved 5. Malnutrition 6. History of alcohol intake in the past PLAN: 1. Replace potassium 2. No indication for antiarrhythmic at this time. 3. Continue clinical observation and if there is no evidence of further arrhythmia no treatment is needed. 4. We will see him on as-needed basis, please feel free to call us for any question. Objective - Vital Signs Vital signs: Vital Signs Temp 99.5 F 09/03/21 03:00 Pulse 103 H 09/03/21 07:00 Resp 18 09/03/21 07:00 BP 108/77 09/03/21 07:00 Pulse Ox 96 09/03/21 07:00 Intake & Output 09/02/21 09/03/21 09/03/21 18:59 06:59 18:59 Intake Total 975 925 75 Output Total 785 620 45 Balance 190 305 30 Weight 62.4 kg Intake: IV 975 825 75 Dextrose 5%-0.45% NaCl 1, 975 825 75 000 ml @ 75 mls/hr IV . [id number] [facility] Rx#:[id number] Intake, IV Titration 100 Amount Piperacillin-Tazobactam 3 100 .375 gm In Sodium Chloride 0.9% 100 ml @ 25 mls/hr IVPB Q8H [facility] Rx#: [id number] Output: Urine 785 620 45 Other: Voiding Method Indwelling Catheter Indwelling Catheter - Labs CBC & Chem 7: 09/02/21 02:10 09/03/21 05:46 Labs: Abnormal Lab Results - Last 24 Hours (Table) 08/31/21 09/03/21 Range/Units 14:44 05:46 Potassium 3.3 L (3.5-5.1) mmol/L Free [place] LC, Quant 2.49 H (0.33-1.94) mg/dL Free [place] LC, Quant 4.02 H (0.57-2.63) mg/dL
[2021-09-03] MEDS: PANTOPRAZOLE 40 MG/10 ML VIAL IVP SCH (08:28)
[2021-09-03] MEDS: HEPARIN SODIUM,PORCINE/PF 5,000 UNIT/0.5 ML SYRINGE SQ SCH ×2 (08:28→17:00)
[2021-09-03] MEDS: THIAMINE 100 MG/ML 2 ML VIAL IVP SCH (08:28)
[2021-09-03] MEDS: DEXTROSE 5%-0.45% NACL 1,000 ML IV SCH ×2 (08:29→21:30)
--- NOTE | 2021-09-03 08:47 | P.PN ---
Subjective Progress Note Date: 09/02/21 Principal diagnosis: Confusion and Hypercalcemia Still in care of ICU, FLC and Bone scan are still pending. He is still lethargic and confused. MRI brain also pending. Objective - Vital Signs Vital signs: Vital Signs Temp 98.2 F 09/02/21 08:00 Pulse 103 H 09/02/21 11:29 Resp 9 L 09/02/21 10:00 BP 156/82 09/02/21 10:00 Pulse Ox 94 L 09/02/21 10:00 Intake & Output 09/01/21 09/02/21 09/02/21 18:59 06:59 18:59 Intake Total 1725 900 300 Output Total 3310 715 275 Balance -1585 185 25 Weight 62.4 kg Intake: IV 1125 900 300 Dextrose 5%-0.45% NaCl 1, 1125 900 300 000 ml @ 75 mls/hr IV . [id number] [facility] Rx#:[id number] Intake, IV Titration 600 Amount Potassium Chloride 10 meq 400 In Sodium Chloride 0.9% 100 ml @ 100 mls/hr IVPB Q1H [facility] Rx#:[id number] Potassium Chloride 20 meq 200 In Water For Injection 1 100ml.bag @ 50 mls/hr IVPB Q2H [facility] Rx#: [id number] Output: Urine 3310 715 275 Other: Voiding Method Indwelling Catheter Indwelling Catheter Indwelling Catheter - Exam Lethargic, Does not full awaken for interview. NAD No increased effort Mild BLE edema, areas of darkened skin No apparent tenderness on abdomen. - Labs CBC & Chem 7: 09/02/21 02:10 09/02/21 02:10 Labs: Abnormal Lab Results - Last 24 Hours (Table) 08/30/21 09/01/21 09/02/21 Range/Units 14:07 13:45 02:10 WBC 10.8 H (3.8-10.6) k/uL RBC 3.43 L (4.30-5.90) m/uL Hgb 10.7 L (13.0-17.5) gm/dL Hct 33.8 L (39.0-53.0) % Plt Count 147 L (150-450) k/uL Neutrophils # 9.3 H (1.3-7.7) k/uL Lymphocytes # 0.7 L (1.0-4.8) k/uL Potassium 3.4 L (3.5-5.1) mmol/L Chloride (98-107) mmol/L BUN (9-20) mg/dL Ionized Calcium Vera (4.5-5.3) mg/dL Albumin (PEP) 2.37 L (3.80-4.90) g/dL Gamma Globulins 0.43 L (0.70-1.50) g/dL 09/02/21 Range/Units 02:10 WBC (3.8-10.6) k/uL RBC (4.30-5.90) m/uL Hgb (13.0-17.5) gm/dL Hct (39.0-53.0) % Plt Count (150-450) k/uL Neutrophils # (1.3-7.7) k/uL Lymphocytes # (1.0-4.8) k/uL Potassium (3.5-5.1) mmol/L Chloride 114 H (98-107) mmol/L BUN 22 H (9-20) mg/dL Ionized Calcium Vera 6.3 H* (4.5-5.3) mg/dL Albumin (PEP) (3.80-4.90) g/dL Gamma Globulins (0.70-1.50) g/dL Assessment and Plan (1) Hypercalcemia Narrative/Plan: Concern of hypercalcemia of malignancy: Myeloma panel pending He has continued on hydration with minimal improvement, recommend addition of calcitonin and bphosphonate (could split into two doses for less stress to kidneys) Await bone scan and MRI Await FLC Current Visit: Yes Status: Acute Code(s): E83.52 - HYPERCALCEMIA SNOMED Code(s): 73748375 (2) Macrocytic anemia Narrative/Plan: Further work-up is negative Stable 10 today Current Visit: Yes Status: Acute Code(s): D53.9 - NUTRITIONAL ANEMIA, UNSPECIFIED SNOMED Code(s): 97649203 (3) Lytic bone lesions on xray Narrative/Plan: Will further evaluate with bone scan and await myeloma panel and PSA level Current Visit: Yes Status: Acute Code(s): M89.9 - DISORDER OF BONE, UNSPECIFIED SNOMED Code(s): 597573443
--- NOTE | 2021-09-03 10:36 | P.PN ---
Subjective Progress Note Date: 09/03/21 Principal diagnosis: Acute mental status change, acute metabolic encephalopathy and hypercalcemia 71-year-old male patient, extremely debilitated, emaciated, cachectic, brought into the ED on 08/29/2021 for altered mentation. Apparently, the ex- notified the ED that he was last seen normal approximately a week ago. He was found in [place] motel and the patient was brought into the hospital for further evaluation. The patient has history of alcoholism. Is a history of smoker. He has undergone lung cancer screening including a low-dose CAT scan back in 2020 that came back negative. He has had also several CAT scan of the chest throughout the current health system that showed no evidence 70 malignancy. Nevertheless, during this current admission, he was altered and he had significant metabolic abnormalities and the patient was found to have an acute kidney injury with a creatinine of 2.53 and a BUN of 108. His calcium level was 13.3 with ionized calcium level of 7.4. CPK was 316. Ammonia level was less than 9. AST was 64, ALT was 33, TSH was 5.2 with a free T4 of 1.4. UA was negative. Urine drug screen was negative. Alcohol level was less than 10. CAT scan of the brain showed hydrocephalus/cerebral atrophy without any significant change compared to the earlier exam. No evidence of any acute stroke. No evidence of any acute hemorrhage. CAT scan of the C-spine showed questionable lytic lesion of vertebral bodies the possibility of multiple myeloma. This was a T1 lytic lesion and this was new compared to the earlier CAT scan of 10/10/2020. The chest x-ray was somewhat rotated. There was an area of infiltration in the right upper lobe which could represent potential underlying aspiration pneumonia. The white cell count currently is at 13.5 with a hemoglobin of 14. He has 49% bandemia, 39% neutrophilia, and lymphocytes were 7% with a monocytes of 6%. Potassium level was at 3.6. Troponin was at 0.06. In the ED, the patient was given a total of 2.5 L of IV fluids normal saline and currently the patient is on D5 half-normal saline running at 83 mL an hour. He is started producing urine output. He remains altered. He withdraws to painful stimulation. He cannot carry a conversation. No neck stiffness. No fever. No signs of any trauma this point in time. No biting of the tongue or lip. No skin bruises. No signs of any seizure activity as the patient is not having any jerky body movements. The patient was in the hospital on 01/18/2021 for a fall and a hairline intra-articular fracture of the left acetabulum. At that time, the patient was having significant pain. Patient was seen by orthopedic surgery. No surgery was done and the patient was given a wheelchair to rest for the next 3 months. He was also discharged home nonweightbearing on the left. He denied to go to rehabilitation. Apparently, prior to his discharge, the patient was alert and oriented 3. He was supposed to follow up with orthopedic services within 2 weeks following his discharge. He was drinking alcohol in the order of XB is on a daily basis and the patient was counseled for alcohol cessation prior to his discharge. His discharge medications included [place] in addition to thiamine and B6 vitamin and he was also given Ultram for pain control and folic acid. Patient was reevaluated today on 08/31/21, remains in the ICU, on room air and O2 saturation is 92%. Patient received 3 L of 0.9 normal saline for his hypercalcemia and now he is on D5 45 at 1 50 mL/h he is hemodynamically stable. Not requiring any pressors. His calcium is down to 10.8 creatinine is down to 1.31. Patient is supposed to have a CT of the chest abdomen and pelvis however we plan to have this done once his creatinine improves further. In the meantime we'll send some markers for underlying malignancy including PSA, CEA, and cancer antigen 199. Based on the presentation, we are most likely dealing with hypercalcemia secondary to underlying malignancy and possibly skeletal metastasis. CBC today is relatively unremarkable his potassium is 2.7 BUN is 61 creatinine 1.31. Patient remains confused, and encephalopathic. Chest x-ray is suggestive of possible aspiration pneumonia. Patient was reevaluated today on 09/01/21, basically about the same. Remains on few liters nasal cannula, IV fluid is cut down to 75 mL per hour. Serum calcium today is 10.0. However his mentation is about the same and the patient remains on antibiotics for presumptive aspiration pneumonia. Renal functioning is significantly improved, his BUN today is 29 creatinine is 0.93. Patient is having a bone scan today. And he may eventually need a CT of the chest abdomen and pelvis. Serum protein electrophoresis is pending. Reevaluated today on 09/02/21, patient remains in the ICU, he is basically the same. Remains confused, remains restless and agitated, and bone scan could not be done yesterday mostly because of his agitation and could not hold still. Today I'm recommending possibly placing the patient on Precedex, keep him calm, and go ahead and order the bone scan again to see if could be done today possibly. In the meantime the patient is confused, he is on 2 L nasal cannula O2 sats 95%, intermittently coughing and seems congested. Yesterday he received 1 dose of Lasix and he responded quite well. No chest x-ray was done today. Patient is on D5W at 75 mL per hour. His renal functioning is back to normal. Calcium today is 9.3, ionized calcium is 6.3. Renal profile is normal electrolytes are relatively normal WBC count is 10.8 hemoglobin is 10.7 platelets are 147. Workup for malignancy including the cancer markers have been all negative. Patient was deaf daily the bone scan, and possibly CT of the chest abdomen and pelvis. Patient was reevaluated today on 09/03/21, remains in the ICU, patient is basically about the same. He was supposed to have a bone scan yesterday, but this never happened. He was supposed to have a nasogastric tube yesterday, apparently there was difficulty in placement of a nasogastric tube. Patient is being evaluated today by speech therapy for swallow evaluation. In the meantime I still plan to arrange for a known scan and possibly CT of the chest abdomen and pelvis on this patient. We definitely need to know definitively what kind of malignancy this patient has to explain his hypercalcemia and Hospital skeletal metastasis. Patient remains confused. Being followed by neurology, sumi kay to have metabolic encephalopathy. No labs were drawn today. Objective - Vital Signs Vital signs: Vital Signs Temp 99.5 F 09/03/21 03:00 Pulse 110 H 09/03/21 08:12 Resp 18 09/03/21 07:00 BP 108/77 09/03/21 07:00 Pulse Ox 96 09/03/21 07:00 Intake & Output 09/02/21 09/03/21 09/03/21 18:59 06:59 18:59 Intake Total 975 925 75 Output Total 78 620 45 Balance 190 305 30 Weight 62.4 kg Intake: IV 975 825 75 Dextrose 5%-0.45% NaCl 1, 975 825 75 000 ml @ 75 mls/hr IV . [id number] [facility] Rx#:[id number] Intake, IV Titration 100 Amount Piperacillin-Tazobactam 3 100 .375 gm In Sodium Chloride 0.9% 100 ml @ 25 mls/hr IVPB Q8H [facility] Rx#: [id number] Output: Urine 785 620 45 Other: Voiding Method Indwelling Catheter Indwelling Catheter - Exam Physical Exam: Revealed a 71-year-old white male, in no distress, on 2 L nasal cannula. Head: Atraumatic, normocephalic. HEENT:[Neck is supple.] [No neck masses.] [No thyromegaly.] [No JVD.], PERRLA, EOMI, nonicteric, dry mucous membranes Chest: [ Symmetrical chest expansion, diminished breath sounds at the bases. Cardiac Exam: [Normal S1 and S2, no S3 gallop, no murmur.] Abdomen: [Soft, nontender, no megaly, no rebound, no guarding, normal bowel sounds.] Extremities: [No clubbing, no edema, no cyanosis.] Good pulses bilaterally. Neurological Exam: Confused, does not follow any instructions Skin: No rashes. Musculoskeletal: No deformities. Psychiatric: Could not be assessed - Labs CBC & Chem 7: 09/02/21 02:10 09/03/21 05:46 Labs: Abnormal Lab Results - Last 24 Hours (Table) 08/31/21 08/31/21 09/03/21 Range/Units 14:44 14:44 05:46 Potassium 3.3 L (3.5-5.1) mmol/L Methylmalonic Acid 0.72 H (<0.40) umol/L Free [place] LC, Quant 2.49 H (0.33-1.94) mg/dL Free Lambda LC, Quant 4.02 H (0.57-2.63) mg/dL Assessment and Plan Assessment: Impression: Acute metabolic encephalopathy secondary to hypercalcemia exact etiology is yet to be determined however it's felt to be most likely to underlying malignancy unless for otherwise. Acute kidney injury, resolved with hydration. Acute hypercalcemia, workup is in progress. [place] to be hypercalcemia of malignancy unless for otherwise. Suspect aspiration pneumonia, continue Zosyn. Lytic lesion involving T1 of the spine. History of underlying COPD. History of hilar adenopathy not appreciated on most recent CT of the chest. History of alcoholism. History of recent left hairline hip fracture Recommendation: Arrange again for bone scan today. Continue present treatment plan. Continue IV fluids Workup for underlying malignancy is pending Continue GI and DVT prophylaxis. Continue IV Zosyn for presumptive aspiration pneumonia Prognosis is poor, may have to consider comfort care measures on this patient. However would like to have him sort of a definitive diagnosis before we proceed with comfort care measures assessment CODE STATUS is DO NOT RESUSCITATE We'll continue to follow. Time with Patient: Less than 30
[2021-09-03 11:36] LABS: Glucose,Whole Blood 123 mg/dL (75-99)
[2021-09-03] MEDS ORDERED: LORazepam 2 MG/ML INJ IV STA ×2 (11:40)
--- NOTE | 2021-09-03 16:25 | MR ---
EXAMINATION TYPE: MR brain/cspine wo DATE OF EXAM: 09/03/2021 COMPARISON: CT brain and cervical spine 5 days ago HISTORY: lytic lesion on C-spine. R/O multiple myeloma TECHNIQUE: Multiplanar, multisequence imaging of the brain and brainstem and cervical spine are all p erformed without IV contrast. FINDINGS: Exam noted suboptimal due to patient's inability to hold breath causing motion artifact. Brain: Diffusion weighted images demonstrate no evidence of a recent infarct or other diffusion abnormality. Ventricular and sulcal prominence redemonstrated. Degree of ventricular dilatation out of proportion to degree of sulcal effacement is similar to prior CTs. Focal confluent areas of T2 hyperintensity gr eatest in the deep and periventricular white matter. Midline structures demonstrate normal morphology. Corpus callosum is maintained. The craniocervical j unction appears within normal limits. Normal vascular flow voids are present. Dominant left vertebral artery incidentally noted. The visualized sinuses are clear and the globes are intact. IMPRESSION: Mild to moderate diffuse cerebral atrophy and moderate to advanced chronic small vessel i schemic change. Underlying moderate hydrocephalus redemonstrated. No significant change from prior CT brain studies. Cervical spine: FINDINGS: Sagittal images of the cervical spine show the craniocervical junction to appear within nor mal limits. The cervical and upper thoracic spinal cord is normal in caliber and signal. There is de xtroconvex scoliosis centered in the upper thoracic spine. Bone marrow is markedly abnormal with mult ifocal and diffuse regions of abnormal T1 and T2 signal with relative sparing of the C2 vertebra thro ughout the cervical and thoracic spine more prominent than seen on CT. The disc space heights are honey rly well preserved Axial images show uncovertebral facet degenerative changes and small posterior disc herniations mildl y effacing the anterior thecal sac at C3-C4 through C6 6-C7 levels. There is vaix-pb-nrxousdt bilater al neural foraminal narrowing at C3-C4 level, left C4-C5 level, and bilateral left greater than right C5-C6 levels along with right greater than left C6-C7 levels. There is large right neck mass measuri ng 6.2 x 4.0 by 4.3 cm coronal image 3 and axial image 30 and running posterior to the angle of the m andible extending inferiorly to the supraclavicular region where there are smaller masses or lymph no dionte on CT. Plasmacytoma should be considered given the history of myeloma. This lesion would be mattie ble to imaging guided sampling for tissue analysis if necessary. IMPRESSION: Markedly abnormal osseous structures could reflect metastatic disease or diffuse myeloma involvement. Large right neck mass worrisome for adenopathy or plasmacytoma.
[2021-09-03 17:45] LABS: Glucose,Whole Blood 110 mg/dL (75-99)
--- NOTE | 2021-09-03 19:00 | P.PN ---
Subjective From the Records (patient cannot provide information) Patient was admitted to hospital Hospital after he was found unresponsive. Patient is admitted to the hospital after he was found unresponsive at home. Patient is believed to have aspiration pneumonia for which patient is on Zosyn. Patient is still not responsive patient does have significant metabolic encephalopathy may be consistent with a is being treated for aspiration pneumonia this time. Patient is also hypocalcemic most probably secondary to dehydration, patient is undergoing hypercalcemia workup. She also has hilar lymphadenopathy because of which patient is undergoing workup for sarcoidosis. 09/01/2021 Patient's severe metabolic encephalopathy is improving at this time patient has lactic lesion in the spine because of which there is a significant suspicion of the malignancy although primary is not clear patient doesn't have any highlighted did not lymphadenopathy and repeat CT oncology is following the patient as well. Patient can use to have hypercalcemia. Patient had volume overload and pulmonary edema because of IV fluids because of which she is also receiving Lasix. Patient is receiving both Lasix and IV fluids because of his hypercalcemia. She remains hypokalemic because of IV fluids now he received IV Lasix potassium will be replaced. Patient is more awake today. He is sitting he does understand and following commands. Patient's renal failure although improved significantly. 09/02/2021 patient is seen in follow-up continues to be in the ICU with multiple medical consultations following. Patient continues to be confused and restless and a nxious at times. EEG was done and abnormal due to encephalopathy with no epileptiform activity noted. Patient continues with congestion and gurgling at times and unable to clear secretions requiring suction. Patient is currently NPO and his mentation continues to be encephalopathic. Potassium is 3.5 today and will closely monitor and replace per protocol. Cardiology was consulted and pending at this time for SVT. Today's note 09/03/2021 This is a pleasant 71 years old male who was admitted initially on 08/29 for altered mental status, patient was found unresponsive. Patient remains in the [facility] confused, does not follow commands, does not answer questions, he opens his eyes spontaneously and stairs in the ceiling. Patient could not provide information sort was obtained from medical records and staff. No family at bedside. Patient also has been followed by several consultants including pulmonary/critical care, manager of radiology, neurologist, hematology/oncology and senior internal auditor. Patient is also with some evidence of fever with bilateral infiltrates and pleural effusion suspicious for bilateral pneumonia with aspiration pneumonia is concerned and patient is currently covered with Zosyn. Also he has some evidence of lytic bone lesions with hypercalcemia on admission, most likely secondary to multiple myeloma as lambda and kappa Are elevated. He has CT of the brain and neck showing lytic lesions in vertebral bodies. Also he has evidence of hydronephrosis with cerebral atrophy which is unchanged from previous. He had a brain MRI today showing osseous lesion suspicious for metastasis versus multiple myeloma with large right neck mass suspicious for lymphadenopathy versus plasmacytoma. He has evidence of low parathyroid hormone, low vitamin D and local and nice calcium, his acute kidney injury improved with hydration. NG tube was tried to be placed yesterday but was unsuccessful because of coiling of the tube, several attempts were unsuccessful. Patient currently kept on D5 half-normal saline at 75 mL/h. Is slightly tachycardic, temperature is 102. Abdomen soft. Review of systems: N/a Active Medications Generic Name Dose Route Start Last Admin Trade Name Freq PRN Reason Stop Dose Admin Albuterol/Ipratropium 3 ml 08/30/21 04:00 09/03/21 16:04 Ipratropium-Albuterol 3 Ml Neb INHALATION 3 ml RT-Q4H [facility] Administration Heparin Sodium (Porcine) 5,000 unit 08/31/21 00:00 09/03/21 17:00 Heparin Sodium,Porcine/Pf 5,000 Unit/0.5 Ml Syringe SQ 5,000 unit Q8HR [facility] Administration Piperacillin Sod/Tazobactam 100 mls @ 25 mls/hr 08/30/21 12:00 09/03/21 12:37 Sod 3.375 gm/ Sodium Chloride IVPB 25 mls/hr Q8H [facility] Administration Protocol Dextrose/Sodium Chloride 1,000 mls @ 75 mls/hr 08/30/21 17:45 09/03/21 08:29 Dextrose 5%-1/2ns Iv Soln IV 75 mls/hr .[id number] [facility] Administration Miscellaneous Information 1 each 08/31/21 07:01 Potassium Replacement Protocol 1 Each Misc MISCELLANE DAILY PRN Per Protocol Protocol Pantoprazole Sodium 40 mg 08/31/21 09:00 09/03/21 08:28 Pantoprazole 40 Mg/10 Ml Vial IVP 40 mg DAILY [facility] Administration Thiamine HCl 100 mg 08/30/21 14:00 09/03/21 08:28 Thiamine 100 Mg/Ml 2 Ml Vial IVP 100 mg DAILY [facility] Administration Objective - Vital Signs Vital signs: Vital Signs Temp 99.5 F 09/03/21 03:00 Pulse 110 H 09/03/21 08:12 Resp 18 09/03/21 07:00 BP 108/77 09/03/21 07:00 Pulse Ox 96 09/03/21 07:00 Intake & Output 09/02/21 09/03/21 09/03/21 18:59 06:59 18:59 Intake Total 975 925 75 Output Total 785 620 45 Balance 190 305 30 Weight 62.4 kg Intake: IV 975 825 75 Dextrose 5%-0.45% NaCl 1, 975 825 75 000 ml @ 75 mls/hr IV . [id number] [facility] Rx#:[id number] Intake, IV Titration 100 Amount Piperacillin-Tazobactam 3 100 .375 gm In Sodium Chloride 0.9% 100 ml @ 25 mls/hr IVPB Q8H [facility] Rx#: [id number] Output: Urine 785 620 45 Other: Voiding Method Indwelling Catheter Indwelling Catheter - Exam -GENERAL: The patient is confused, staring and the space, does not follow command, does not answer questions, cachectic HEENT: Pupils are round and equally reacting to light. EOMI. No scleral icterus. No conjunctival pallor. Normocephalic, atraumatic. No pharyngeal erythema. No thyromegaly. CARDIOVASCULAR: S1 and S2 present. No murmurs, rubs, or gallops. PULMONARY: Chest is clear to auscultation, no wheezing or crackles. ABDOMEN: Soft, nontender, nondistended, normoactive bowel sounds. No palpable organomegaly. MUSCULOSKELETAL: No joint swelling or deformity. EXTREMITIES: No cyanosis, clubbing, or pedal edema. -NEUROLOGICAL: Patient nonverbal, does not follow command, no focal deficit is noted or asymmetry on exam. Exam is limited by patient condition SKIN: No rashes. no petechiae. - Labs CBC & Chem 7: 09/02/21 02:10 09/03/21 05:46 Labs: Abnormal Lab Results - Last 24 Hours (Table) 08/31/21 09/03/21 Range/Units 14:44 05:46 Potassium 3.3 L (3.5-5.1) mmol/L Free [place] LC, Quant 2.49 H (0.33-1.94) mg/dL Free [place] LC, Quant 4.02 H (0.57-2.63) mg/dL Assessment and Plan Assessment: -Multiple myeloma (high lambda and kappa) with neck mass on the right side suspicious for plasmocytoma, and multiple lytic lesions including vertebral bodies, with hypercalcemia, currently hypocalcemia, low vitamin D and PTH. -Normocytic Normochromic anemia, mostly anemia of chronic disease -Altered mental status, mostly metabolic encephalopathy -Cachexia -Bilateral aspiration pneumonia is suspected -Chronic hydrocephalus with cerebral atrophy -KRISTIE, improved. And dehydration present on admission improved Plan: This is a pleasant 71 old male who presents with multiple myeloma, name S, hypercalcemia, aspiration pneumonia. Continue with antibiotics Zosyn and will continue with gentle hydration Follow-up results of bone scan Check labs in the morning including routine labs, phosphorus, ionized calcium, Protonix, calcitonin and A1c Several consultants on the case including pulmonary, neurology, hematology/oncology at nephrology. While manager of radiology team signed off Labs and medication were reviewed.. Continue same treatment. Continue with symptomatic treatment. Resume home medication. Monitor lytes and vitals. DVT and GI prophylaxis. Further recommendations as per clinical course of the patient DVT prophylaxis: Subcutaneous heparin GI Prophylaxis: Pepcid Prognosis is guarded
[2021-09-03] MEDS ORDERED: FAMOTIDINE 20 MG/2 ML VIAL IV SCH (21:00)
[2021-09-04] MEDS: HEPARIN SODIUM,PORCINE/PF 5,000 UNIT/0.5 ML SYRINGE SQ SCH (00:29)
[2021-09-04] MEDS: IPRATROPIUM-ALBUTEROL 3 ML NEB INHALATION SCH ×2 (04:24→08:52)
[2021-09-04] MEDS: PIPERACILLIN-TAZOBACTAM 3.375 GM in SODIUM CHLORIDE 0.9% 100 ML IVPB SCH (05:14)
[2021-09-04 05:42] LABS: ABG Base Excess -2.8 mmol/L; ABG HCO3 21 mmol/L (21-25); ABG Oxygen Saturation 98.6 % (94-97); ABG PCO2 29 mmHg (35-45); ABG PH 7.47 (7.35-7.45); ABG PO2 113 mmHg (83-108); ABG TCO2 22 mmol/L (19-24); Allen Test Performed? Yes
[2021-09-04 06:50] VITALS: TEMP 100.9
[2021-09-04 07:33] VITALS: BP 115/32; PULSE 112; RESP 36
--- NOTE | 2021-09-04 10:46 | CDI ---
Documentation Clarification Form Date: 09/04/2021 10:32:31 AM From: Marichuy Serrano RN, CCDS Admit Date: 08/30/2021 06:42:00 AM Patient Name: Bruna Cardenas Visit Number: [id number] Discharge Date: 09/04/2021 09:48:00 AM ATTENTION: The Clinical Documentation Specialists (CDI) and [facility] Coding Staff appreciate your assistance in clarifying documentation. Please respond to the clarification below the line at the bottom and electronically sign. The CDI & [facility] Coding staff will review the response and follow-up if needed. Please note: Queries are made part of the Legal Health Record. If you have any questions, please contact the author of this message via ITS. Dr. Brandin Colon Malnutrition is documented in the progress note on 09/03/21. Additional clarification regarding the severity of malnutrition is requested. History/Risk Factors: Alcoholism, Tobacco dependency, Clinical Indicators: 71-year-old male found with change in mental status, found unresponsive. Chest x-ray with infiltrate and ruled in for aspiration pneumonia. Current BMI: 19.2 Insufficient energy intake: dehydrated, NPO related to aspiration pneumonia Loss of subcutaneous fat: General appearance, cachectic RD assessment: Intake Poor No diet ordered. Treatment: ICU Monitoring Dietary Consult: Yes Tube feedings rate per orders (titrate) Monitor PO Lab monitoring: CBC, BUN, CR, Lytes per orders Please clarify the type of malnutrition, if known: [ ] Mild Protein-Calorie Malnutrition [ ] Moderate Protein-Calorie Malnutrition [ ] Severe Protein-Calorie Malnutrition [ ] Other condition, please specify [ ] Unable to Determine (Template Last Revised: August 2020) sever protein-calorie malnutrition MTDD
--- NOTE | 2021-09-04 20:24 | P.DS ---
Providers Date of admission: 08/30/21 06:42 Attending physician: Lesli Thomas Consults: 08/30/21 09:56 Consult Physician Routine Consulting Provider: Tone Boggs Consult Reason/Comments: PNA/ Sepsis Do you want consulting provider notified?: Yes Consult Physician Routine Consulting Provider: Jonny Mcclellan Consult Reason/Comments: AMS Do you want consulting provider notified?: Yes 08/30/21 09:57 Consult Physician Routine Consulting Provider: Rocio Moreno Consult Reason/Comments: Ac Renal failure Do you want consulting provider notified?: Yes 08/30/21 13:47 Consult Physician Routine Consulting Provider: Marcelo Boo Consult Reason/Comments: R/O multiple myeloma: lytic lesion on CT spine and hypercalcemia Do you want consulting provider notified?: Yes 09/02/21 09:55 Consult Physician Routine Consulting Provider: Sin Juarez Consult Reason/Comments: intermittent SVT Do you want consulting provider notified?: Yes Primary care physician: [facility] Hospital Course: Diagnoses: -Multiple myeloma (high lambda and kappa) with neck mass on the right side suspicious for plasmocytoma, and multiple lytic lesions including vertebral bodies, with hypercalcemia, currently hypocalcemia, low vitamin D and PTH. -Normocytic Normochromic anemia, mostly anemia of chronic disease -Altered mental status, mostly metabolic encephalopathy -Cachexia -Bilateral aspiration pneumonia is suspected -Chronic hydrocephalus with cerebral atrophy -KRISTIE, improved. And dehydration present on admission improved Hospital course: This is a pleasant 71 years old male who was admitted initially on 08/29 for altered mental status, patient was found unresponsive. Patient remains in the ICU confused, does not follow commands, does not answer questions, he opens his eyes spontaneously and stairs in the ceiling. Patient could not provide information sort was obtained from medical records and staff. No family at bedside. Patient also has been followed by several consultants including pulmona ry/critical care, transonic engineer, neurologist, hematology/oncology and reel fed printer. Patient is also with some evidence of fever with bilateral infiltrates and pleural effusion suspicious for bilateral pneumonia with aspiration pneumonia is concerned and patient is currently covered with Zosyn. Also he has some evidence of lytic bone lesions with hypercalcemia on admission, most likely secondary to multiple myeloma as lambda and kappa Are elevated. He has CT of the brain and neck showing lytic lesions in vertebral bodies. Also he has evidence of hydronephrosis with cerebral atrophy which is unchanged from previous. He had a brain MRI today showing osseous lesion suspicious for metastasis versus multiple myeloma with large right neck mass suspicious for lymphadenopathy versus plasmacytoma. He has evidence of low parathyroid hormone, low vitamin D and local and nice calcium, his acute kidney injury improved with hydration. NG tube was tried to be placed yesterday but was unsuccessful because of coiling of the tube, several attempts were unsuccessful. Patient eventually 09/04 at 7:59 as per bedside nurse, please refer to nursing note for more details. Patient Condition at Discharge: Serious Plan - Discharge Summary New Discharge Prescriptions: No Action RX: Folic Acid 1 mg PO DAILY Thiamine HCl [Vitamin B-1] 100 mg PO DAILY Pyridoxine HCl (Vitamin B6) [Pyridoxine HCl] 25 mg PO DAILY Discharge Medication List Pyridoxine HCl (Vitamin B6) [Pyridoxine HCl] 25 mg PO DAILY 01/18/21 [History] RX: Folic Acid 1 mg PO DAILY 01/18/21 [History] Thiamine HCl [Vitamin B-1] 100 mg PO DAILY 01/18/21 [History] Follow up Appointment(s)/Referral(s): None,Stated [REFERRING] - 1-2 days Discharge Disposition: - Preliminary Cause of Preliminary Cause of : multiple myeloma & aspiration pneumonia
--- NOTE | 2021-09-04 23:07 | P.PN ---
Subjective Progress Note Date: 09/03/21 09/03/2021: Patient was seen for a follow-up. Patient is more interactive. He is trying to speak as per examination. Patient is less fidgety. Offers no complaints. 09/02/2021: Patient more alert and awake. He tried to mumble a little. Still not following commands. Patient makes eye contact, tracks. Patient is not on any sedation. Patient not able to cooperate for MRI or bone scan. 09/01/2021: Patient initially seen by Dr. Jonny Mcclellan. Please refer to his note for details. Patient is a 71-year-old male who [place] hotel with incontinence of urine and feces, unknown downtime, although last seen normal about a week prior to arrival. Patient had developed encephalopathy, likely metabolic with some pneumonia. Patient also has lytic lesions and hypercalcemia, concern for myel gelacio. Patient continues to be encephalopathic. He does open his eyes and makes eye contact, but does not follow much commands. Patient does move his arms and legs. Patient is congested, coughing, appears slightly short of breath. Patient appears cachectic. Objective - Vital Signs Vital signs: Vital Signs Temp 100.9 F H 09/04/21 04:00 Pulse 112 H 09/04/21 07:00 Resp 36 H 09/04/21 07:00 BP 115/32 09/04/21 07:00 Pulse Ox 99 09/04/21 07:00 Intake & Output 09/04/21 09/04/21 09/05/21 06:59 18:59 06:59 Intake Total 500 Output Total 475 Balance 25 Intake: IV 500 Dextrose 5%-0.45% NaCl 1, 400 000 ml @ 75 mls/hr IV . [id number] [facility] Rx#:[id number] Piperacillin-Tazobactam 3 100 .375 gm In Sodium Chloride 0.9% 100 ml @ 25 mls/hr IVPB Q8H [facility] Rx#: [id number] Output: Urine 475 Other: Voiding Method Indwelling Catheter - Exam Patient is more alert and awake, still obviously encephalopathic. Patient speaking much more clearly. Patient able to tell me his name. He is able to name "eyeglasses", "pen". Patient able to tell me his age 71 and that he is in [place] in [place]. Sometimes he mumbles difficult to understand. Patient is much more interactive. Patient is making eye contact, extraocular muscles are intact. Pupils are equal, round and reacting. Face is symmetric. Visual brown could not be tested. Patient's muscle strength appears fairly normal. Deep tendon reflexes are 2+ in the right upper extremity, 1+ in the left upper extremity, knee reflexes are 3 bilaterally. Plantars are downgoing bilaterally. No peripheral edema. Patient is not on any sedation. - Labs CBC & Chem 7: 09/02/21 02:10 09/03/21 05:46 Labs: Abnormal Lab Results - Last 24 Hours (Table) 09/04/21 Range/Units 05:39 ABG pH 7.47 H (7.35-7.45) ABG pCO2 29 L (35-45) mmHg ABG pO2 113 H (83-108) mmHg ABG O2 Saturation 98.6 H (94-97) % Assessment and Plan Assessment: * Altered mental status, probable toxic metabolic encephalopathy. Patient was found unresponsive by EMS and last known normal was 1 week prior. * Aspiration pneumonia * Hypercalcemia * Lytic lesion on the x-rays, await bone scan. Hematology oncology on board. * Acute kidney injury, improving. * Reported history of alcohol use. Plan: * Patient's level of alertness and consciousness has remarkably improved. His mentation has improved, also following commands, and speaking slightly more clearly, better oriented as per examination above, although still mumbles and at least mildly encephalopathic. * EEG from 09/01/2021 was an abnormal EEG due to background slowing of moderate to severe degree. This is suggestive of generalized cerebral dysfunction as can be seen with toxic metabolic encephalopathy or due to diffuse structural brain abnormality. No epileptiform activity was seen. No indication for antiepileptic medication. * Vitamin B12 > 2000, folate level 8.5, repeat level > 20, TSH normal. Ionized calcium improved 6.3 (4.5-5.3). PTH is low 9.1. * Await MRI of the brain and cervical spine. Scheduled for later this evening. We will follow the results. * Hypercalcemia better with total calcium 9.3, however ionized calcium still elevated at 6.3/5.3. Treatment as per IM/critical care/nephrology. * Continue thiamine . * PT and OT when able to participate. * I'll defer the rest of the medical management to the primary team and ICU team. * Neurologically patient is improving. Addendum: MRI of the brain without contrast revealed mild to moderate diffuse cerebral atrophy and moderate to advanced chronic small vessel ischemic change. Underlying moderate hydrocephalus redemonstrated. No significant change from p rior computed tomography scan. I personally reviewed MRI of the brain and agree with the findings. MRI of the cervical spine was markedly abnormal osseous structures could reflect metastatic disease or diffuse myeloma involvement. Large right neck mass, worrisome for adenopathy or plasma cytoma. I personally reviewed MRI of the cervical spine and agree with the findings.
== END 2021-09-04 09:48 | disposition expired | DRG 177 ==
LOC: EC 23:00 → 2SICU 08-30 06:42
PROVIDERS: ADMIT Hospitalist; ATTEND Hospitalist
DX: J69.0 Pneumonitis due to inhalation of food and vomit (principal); J96.01 Acute respiratory failure with hypoxia; G92.8 Other toxic encephalopathy; E43 Unspecified severe protein-calorie malnutrition; N17.9 Acute kidney failure, unspecified; G91.9 Hydrocephalus, unspecified; R64 Cachexia; C90.00 Multiple myeloma not having achieved remission; I47.1 Supraventricular tachycardia; Z68.1 Body mass index [BMI] 19.9 or less, adult; N13.30 Unspecified hydronephrosis; J91.8 Pleural effusion in other conditions classified elsewhere; J81.1 Chronic pulmonary edema; F10.20 Alcohol dependence, uncomplicated; E87.70 Fluid overload, unspecified; E83.52 Hypercalcemia; I95.9 Hypotension, unspecified; J44.9 Chronic obstructive pulmonary disease, unspecified; E86.0 Dehydration; E87.6 Hypokalemia; D63.8 Anemia in other chronic diseases classified elsewhere; F17.200 Nicotine dependence, unspecified, uncomplicated; Z66 Do not resuscitate; Z79.82 Long term (current) use of aspirin; Z79.899 Other long term (current) drug therapy; Z91.81 History of falling; Z98.890 Other specified postprocedural states
CPT/HCPCS: 36415; 36600; 70450; 70551; 71045; 72125; 72141; 76770; 80048; 80053; 80306; 80320; 81003; 82140; 82164; 82306; 82330; 82378; 82550; 82553; 82607; 82652; 82728; 82746; 82784; 82803; 82805; 83540; 83550; 83615; 83690; 83735; 83883; 83921; 83970; 84132; 84153; 84165; 84439; 84443; 84481; 84484; 85025; 85610; 85730; 86301; 86334; 86335; 93005; 93306; 94640; 95816; 96361; 96365; 96366; 96367; 99291